=== PATIENT | female | born 1930 | race Caucasian/White ===

== ENCOUNTER 2016-05-07 14:55 | Inpatient (IN) | payer MEDICARE, BC ==
[2016-05-07] MEDS ORDERED: SODIUM CHLORIDE 0.9% 500 ML IV STA (15:43)
--- NOTE | 2016-05-07 15:46 | ED ---
General Adult HPI - General Source: patient, EMS, RN notes reviewed Mode of arrival: EMS Limitations: no limitations <Mohan Martins - Last Filed: 05/07/16 17:12> <Chente Matias - Last Filed: 05/07/16 17:33> - General Chief complaint: Altered Mental Status Stated complaint: weakness Time Seen by Provider: 05/07/16 15:00 - History of Present Illness Initial comments: This is an 85-year-old female who presents with some history of dementia. Daughter states today the patient has been so weak she is unable to stand lateral unable to get out of a chair on her own. According to the daughter she is a little more confused than normal. Daughter states she was weak earlier this morning but able to get around still so she went to work. Patient states in the bathroom this morning she slowly fell to the ground on her bottom but was able to get up with some assistance and seemed to be fine after that. But when the daughter got home from work the patient was unable to get out of a chair which is very unusual. Patient herself has no complaints patient denies headache patient denies numbness weakness. Patient denies any head injury recently. Patient denies chest pain palpitations difficulty breathing or shortness of breath. Patient denies any recent fever chills or cough. Patient denies abdominal pain patient denies nausea vomiting or diarrhea. (Mohan Martins) - Related Data Home Medications Medication Instructions Recorded Confirmed Garlic 1 tab PO AC-BRKFST 01/14/14 05/07/16 Glucosamine-Chondr 500-400Mg 1 tab PO AC-BRKFST 01/14/14 05/07/16 Multivitamin/Iron/Folic Acid 1 tab PO HS 01/14/14 05/07/16 [Centrum Complete Multivit Tab] amLODIPine [Norvasc] 10 mg PO DAILY 01/14/14 05/07/16 Donepezil HCl [Aricept] 10 mg PO BID 07/21/15 05/07/16 Memantine [Namenda] 5 mg PO BID 07/21/15 05/07/16 Pravastatin Sodium [Pravachol] 10 mg PO HS 07/21/15 05/07/16 Acetaminophen Tab [Tylenol Tab] 1,000 mg PO Q6HR PRN 01/03/17 01/03/17 Rivaroxaban [Xarelto] 20 mg PO HS 05/07/16 05/07/16 Allergies Allergy/AdvReac Type Severity Reaction Status Date / Time Sulfa (Sulfonamide Allergy Unknown Verified 05/07/16 16:03 Antibiotics) Review of Systems ROS Other: All systems not noted in ROS Statement are negative. <Mohan Martins - Last Filed: 05/07/16 17:12> ROS Other: All systems not noted in ROS Statement are negative. <Chente Matias - Last Filed: 05/07/16 17:33> ROS Statement: Those systems with pertinent positive or pertinent negative responses have been documented in the HPI. Past Medical History Past Medical History: Atrial Fibrillation, CVA/TIA, Dementia, GERD/Reflux, Hyperlipidemia, Hypertension, Osteoarthritis (OA), Pneumonia, Thyroid Disorder Additional Past Medical History / Comment(s): 07/21/15 Pt presented to [facility] ER with a fall at home after which she had L hip and L knee pain, 2ndary weakness. Pt is admitted with clinical impression of fall, L hip fracture. Pt has dementia and lives with her guicho who is here and assists with past medical hx. Other HX: CVA's and TIA's, tracheobronchitis, RLL NODULE-thought to be scar tissue, pelvic fracture, DJD, osteoporosis, back pain on occasion, skin cancer with removal, incontinence of urine-wears pad, hemorrhoids, thyroid nodules and COPD per past medical record but daughter has no recollection of these. History of Any Multi-Drug Resistant Organisms: None Reported Past Surgical History: Appendectomy, Cholecystectomy, Hysterectomy, Joint Replacement Additional Past Surgical History / Comment(s): Bilateral EYE CATARACT SX, bladder suspension, colonoscopy, skin cancer removals. left hip replacement Past Anesthesia/Blood Transfusion Reactions: No Reported Reaction Past Psychological History: No Psychological Hx Reported Additional Psychological History / Comment(s): Pt has dementia and guicho states there have been more memory problems this past week. Pt left stove on this week. Pt uses walker since hip replacement. Pt does not drive-guicho takes her to appts. Smoking Status: Never smoker Past Alcohol Use History: None Reported Past Drug Use History: None Reported - Past Family History Sister(s) Family Medical History: Cancer Additional Family Medical History / Comment(s): colon CA Father Family Medical History: Unable to Obtain Additional Family Medical History / Comment(s): AT AGE 70 HX UNK Mother Family Medical History: Cancer Additional Family Medical History / Comment(s): AGE 55 BREAST CA <Mohan Martins - Last Filed: 05/07/16 17:12> General Exam Limitations: no limitations <Mohan Martins - Last Filed: 05/07/16 17:12> <Chente Matias - Last Filed: 05/07/16 17:33> - General Exam Comments Initial Comments: GENERAL: Patient is well-developed and well-nourished. Patient is nontoxic and well- hydrated and is in no acute distress. ENT: Neck is soft and supple. No significant lymphadenopathy is noted. Oropharynx is clear. Moist mucous membranes. Neck has full range of motion without eliciting any pain. EYES: The sclera were anicteric and conjunctiva were pink and moist. Extraocular movements were intact and pupils were equal round and reactive to light. Eyelids were unremarkable. PULMONARY: Unlabored respirations. Good breath sounds bilaterally. No audible rales rhonchi or wheezing was noted. CARDIOVASCULAR: There is a regular rate and rhythm without any murmurs gallops or rubs. ABDOMEN: Soft and nontender with normal bowel sounds. No palpable organomegaly was noted. There is no palpable pulsatile mass. SKIN: Skin is clear with no lesions or rashes and otherwise unremarkable. NEUROLOGIC: Patient is alert and oriented 2. Cranial nerves II through XII are grossly intact. Motor and sensory are also intact. Normal speech, volume and content. Symmetrical smile. Cranial nerves cerebellar finger-nose testing is normal as is [id number] testing MUSCULOSKELETAL: Normal extremities with adequate strength and full range of motion. No lower extremity swelling or edema. No calf tenderness. LYMPHATICS: No significant lymphadenopathy is noted PSYCHIATRIC: Normal psychiatric evaluation. Normal interpersonal interactions appears functionally intact in deals appropriately with others. No signs of depression. No signs of anxiety. (Mohan Martins) Medical Decision Making - Lab Data Result diagrams: 05/07/16 15:55 05/07/16 15:55 <Mohan Martins - Last Filed: 05/07/16 17:12> - Lab Data Result diagrams: 05/07/16 15:55 05/07/16 15:55 - Radiology Data Radiology results: report reviewed (Computed tomography scan of brain shows atrophy and a ventricular white matter changes. Old infarcts.), image reviewed (Two-view chest x-ray shows no acute process.) <Chente Matias - Last Filed: 05/07/16 17:33> - Medical Decision Making EKG shows normal sinus rhythm at 81 bpm NJ interval 256 QRS 96 QT interval is 424 QTC is 492 per patient's EKG shows no ST segment elevation or depression or T-wave abdomen is noted. But doesn't particularly care of this patient at 5 PM (Mohan Martins) Dictation above by Dr. Martins was misinterpreted by the dragon dictation. Patient reevaluated by myself, Dr. Matias. Patient resting comfortably in bed. Family states patient has diffuse weakness and difficulty walking. does have evidence of urinary tract infection. Patient will be admitted with IV antibiotics. Case discussed in detail with Dr. Morgan, who will admit for Dr. Moreno. (Chente Matias) - Lab Data Lab Results 05/07/16 05/07/16 05/07/16 Range/Units 15:55 15:55 15:55 WBC 11.3 H (3.8-10.6) k/uL RBC 4.29 (3.80-5.40) m/uL Hgb 13.1 (11.4-16.0) gm/dL Hct 40.1 (34.0-46.0) % MCV 93.5 (80.0-100.0) fL MCH 30.6 (25.0-35.0) pg MCHC 32.8 (31.0-37.0) g/dL RDW 13.8 (11.5-15.5) % Plt Count 225 (150-450) k/uL Neutrophils % 72 % Lymphocytes % 17 % Monocytes % 9 % Eosinophils % 1 % Basophils % 0 % Neutrophils # 8.2 H (1.3-7.7) k/uL Lymphocytes # 1.9 (1.0-4.8) k/uL Monocytes # 1.1 H (0-1.0) k/uL Eosinophils # 0.1 (0-0.7) k/uL Basophils # 0.0 (0-0.2) k/uL PT (9.0-12.0) sec INR (<1.1) APTT (22.0-30.0) sec Sodium 142 (137-145) mmol/L Potassium 3.9 (3.5-5.1) mmol/L Chloride 102 (98-107) mmol/L Carbon Dioxide 25 (22-30) mmol/L Anion Gap 15 mmol/L BUN 29 H (7-17) mg/dL Creatinine 0.93 (0.52-1.04) mg/dL Est GFR (MDRD) Af Amer >60 (>60 ml/min/1.73 sqM) Est GFR (MDRD) Non-Af 57 (>60 ml/min/1.73 sqM) Glucose 95 (74-99) mg/dL Calcium 9.0 (8.4-10.2) mg/dL Magnesium 2.3 (1.6-2.3) mg/dL Total Bilirubin 1.3 (0.2-1.3) mg/dL AST 22 (14-36) U/L ALT 24 (9-52) U/L Alkaline Phosphatase 101 (38-126) U/L Total Creatine Kinase 92 (30-135) U/L CK-MB (CK-2) 1.1 (0.0-2.4) ng/mL CK-MB (CK-2) Rel Index 1.2 Troponin I <0.012 (0.000-0.034) ng/mL Total Protein 7.2 (6.3-8.2) g/dL Albumin 3.7 (3.5-5.0) g/dL Urine Color Urine Appearance (Clear) Urine pH (5.0-8.0) Ur Specific [place] (1.001-1.035) Urine Protein (Negative) Urine Glucose (UA) (Negative) Urine Ketones (Negative) Urine Blood (Negative) Urine Nitrate (Negative) Urine Bilirubin (Negative) Urine Urobilinogen (<2.0) mg/dL Ur Leukocyte Esterase (Negative) Urine WBC (0-5) /hpf Ur Squamous Epith Cells (0-4) /hpf Urine Bacteria (None) /hpf 05/07/16 05/07/16 Range/Units 15:55 17:15 WBC (3.8-10.6) k/uL RBC (3.80-5.40) m/uL Hgb (11.4-16.0) gm/dL Hct (34.0-46.0) % MCV (80.0-100.0) fL MCH (25.0-35.0) pg MCHC (31.0-37.0) g/dL RDW (11.5-15.5) % Plt Count (150-450) k/uL Neutrophils % % Lymphocytes % % Monocytes % % Eosinophils % % Basophils % % Neutrophils # (1.3-7.7) k/uL Lymphocytes # (1.0-4.8) k/uL Monocytes # (0-1.0) k/uL Eosinophils # (0-0.7) k/uL Basophils # (0-0.2) k/uL PT 12.0 (9.0-12.0) sec INR 1.2 (<1.1) APTT 26.9 (22.0-30.0) sec Sodium (137-145) mmol/L Potassium (3.5-5.1) mmol/L Chloride (98-107) mmol/L Carbon Dioxide (22-30) mmol/L Anion Gap mmol/L BUN (7-17) mg/dL Creatinine (0.52-1.04) mg/dL Est GFR (MDRD) Af Amer (>60 ml/min/1.73 sqM) Est GFR (MDRD) Non-Af (>60 ml/min/1.73 sqM) Glucose (74-99) mg/dL Calcium (8.4-10.2) mg/dL Magnesium (1.6-2.3) mg/dL Total Bilirubin (0.2-1.3) mg/dL AST (14-36) U/L ALT (9-52) U/L Alkaline Phosphatase (38-126) U/L Total Creatine Kinase (30-135) U/L CK-MB (CK-2) (0.0-2.4) ng/mL CK-MB (CK-2) Rel Index Troponin I (0.000-0.034) ng/mL Total Protein (6.3-8.2) g/dL Albumin (3.5-5.0) g/dL Urine Color Yellow Urine Appearance Turbid H (Clear) Urine pH 6.0 (5.0-8.0) Ur Specific [place] 1.018 (1.001-1.035) Urine Protein 1+ H (Negative) Urine Glucose (UA) Negative (Negative) Urine Ketones Trace H (Negative) Urine Blood Small H (Negative) Urine Nitrate Positive H (Negative) Urine Bilirubin Negative (Negative) Urine Urobilinogen <2.0 (<2.0) mg/dL Ur Leukocyte Esterase Moderate H (Negative) Urine WBC 112 H (0-5) /hpf Ur Squamous Epith Cells 2 (0-4) /hpf Urine Bacteria Many H (None) /hpf Disposition <Mohan Martins - Last Filed: 05/07/16 17:12> <Chente Matias - Last Filed: 05/07/16 17:33> Clinical Impression: Urinary tract infection, Weakness Disposition: ADMITTED IP TO THIS HOSP
[2016-05-07 16:10] LABS: Basophils % (A) 0 %; CH 31.7; CHCM 34.1; Eosinophils # (A) 0.1 k/uL (0-0.7); Eosinophils % (A) 1 %; HCT 40.1 % (34.0-46.0); HDW 2.34; HGB 13.1 gm/dL (11.4-16.0); Luc # (Auto) 0.16; Luc % (Auto) 1; Lymphocytes # (A) 1.9 k/uL (1.0-4.8); Lymphocytes % (A) 17 %; MCH 30.6 pg (25.0-35.0); MCHC 32.8 g/dL (31.0-37.0); MCV 93.5 fL (80.0-100.0); Mean Platelet Volume 7.2; Monocytes # (A) 1.1 k/uL (0-1.0); Monocytes % (A) 9 %; Neutrophils # (A) 8.2 k/uL (1.3-7.7); Neutrophils % (A) 72 %; RBC 4.29 m/uL (3.80-5.40); RDW 13.8 % (11.5-15.5); WBC 11.3 k/uL (3.8-10.6); WBC (Perox) 11.15
[2016-05-07 16:20] LABS: ALT 24 U/L (9-52); AST 22 U/L (14-36); Alkaline Phosphatase 101 U/L (38-126); Anion Gap 15 mmol/L; Blood Urea Nitrogen 29 mg/dL (7-17); Carbon Dioxide 25 mmol/L (22-30); Chloride 102 mmol/L (98-107); Glucose 95 mg/dL (74-99); Magnesium 2.3 mg/dL (1.6-2.3); Non-African American GFR(MDRD) 57 (>60 ml/min/1.73 sqM); Potassium 3.9 mmol/L (3.5-5.1); Sodium 142 mmol/L (137-145); Total Bilirubin 1.3 mg/dL (0.2-1.3); Total Protein 7.2 g/dL (6.3-8.2)
[2016-05-07 16:21] LABS: INR 1.2 (<1.1); Partial Thromboplastin Time 26.9 sec (22.0-30.0)
[2016-05-07 16:23] LABS: Creatine Kinase 92 U/L (30-135)
[2016-05-07 16:35] LABS: Creatine Kinase MB 1.1 ng/mL (0.0-2.4); Troponin I <0.012 ng/mL (0.000-0.034)
--- NOTE | 2016-05-07 17:01 | CT ---
EXAMINATION TYPE: CT brain wo con DATE OF EXAM: 05/07/2016 4:56 PM COMPARISON: NONE INDICATION: Pt states of weakness. DLP: 968.3 mGycm, Automated exposure control for dose reduction was used. CONTRAST: None CT of the brain is performed utilizing 3 mm thick sections through the posterior fossa and 3 mm thick sections through the remaining calvarium. Study is performed within 24 hours of arrival to the hosp [facility]. No abnormal hyperdensity is present to suggest an acute intracranial hemorrhage. No mass lesion is evident. No acute infarcts are evident. There is an old left parietal infarct. Subcortical infarct is also lik kim present. There is confluent periventricular white matter hypodensity most likely on the basis of chronic white matter changes. Old watershed infarct through the left frontal parietal region is evide nt. Ventricles and sulci are prominent for the patient age. Paranasal sinuses and mastoid air cells within the [id number] are clear. IMPRESSIONS: 1. Atrophy with periventricular white matter changes. 2. Old infarcts.
--- NOTE | 2016-05-07 17:03 | XR ---
EXAMINATION TYPE: XR chest 2V DATE OF EXAM: 05/07/2016 4:59 PM COMPARISON: 07/26/2015 INDICATION: Weakness TECHNIQUE: Frontal and lateral views of the chest are obtained. FINDINGS: The heart size is normal. The pulmonary vasculature is normal. The lungs are clear. IMPRESSION: 1. No acute pulmonary process.
[2016-05-07 17:24] LABS: Appearance,Urine Turbid (Clear); Bacteria,Urine Many /hpf; Bilirubin,Urine Negative (Negative); Glucose,Urine (UA) Negative (Negative); Ketones,Urine Trace (Negative); Leukocyte Esterase,Urine Moderate (Negative); Nitrite,Urine Positive (Negative); Particle Count 259220; Protein,Urine 1+ (Negative); Specific Gravity,Urine 1.018 (1.001-1.035); Squamous Epithelial Cell,Urine 2 /hpf (0-4); UA Billing (MACRO vs. MICRO) MICRO; Urobilinogen,Urine <2.0 mg/dL (<2.0); WBC,Urine 112 /hpf (0-5)
[2016-05-07] MEDS ORDERED: NALOXONE 0.4 MG/ML 1 ML VIAL IV PRN (17:33)
[2016-05-07] MEDS ORDERED: LEVOFLOXACIN 750MG-D5W PMX 750 MG in DEXTROSE/WATER 1 150ML.BAG IVPB STA (17:34)
[2016-05-07] MEDS ORDERED: ACETAMINOPHEN TAB 500 MG TAB PO PRN (23:32)
[2016-05-08] MEDS: SODIUM CHLORIDE 0.9% 1,000 ML IV SCH ×3 (04:54→17:43)
[2016-05-08] MEDS ORDERED: GLUCOSAMINE CHONDR MSM PO SCH (07:30)
[2016-05-08] MEDS ORDERED: NON-FORMULARY DRUG (Garlic [Garlic] 1 TAB) PO SCH (07:30)
[2016-05-08 08:03] LABS: Basophils % (A) 0 %; CH 30.6; CHCM 31.6; Eosinophils # (A) 0.1 k/uL (0-0.7); Eosinophils % (A) 1 %; HCT 38.9 % (34.0-46.0); HDW 2.26; HGB 12.4 gm/dL (11.4-16.0); Luc # (Auto) 0.11; Luc % (Auto) 2; Lymphocytes # (A) 1.4 k/uL (1.0-4.8); Lymphocytes % (A) 21 %; MCH 31.1 pg (25.0-35.0); MCV 97.2 fL (80.0-100.0); Mean Platelet Volume 6.5; Monocytes # (A) 0.5 k/uL (0-1.0); Monocytes % (A) 7 %; Neutrophils # (A) 4.8 k/uL (1.3-7.7); Neutrophils % (A) 69 %; RDW 13.7 % (11.5-15.5); WBC 6.9 k/uL (3.8-10.6); WBC (Perox) 7.21
[2016-05-08 08:45] LABS: Anion Gap 13 mmol/L; Blood Urea Nitrogen 19 mg/dL (7-17); Calcium 8.2 mg/dL (8.4-10.2); Carbon Dioxide 21 mmol/L (22-30); Chloride 108 mmol/L (98-107); Glucose 94 mg/dL (74-99); Non-African American GFR(MDRD) >60 (>60 ml/min/1.73 sqM); Sodium 142 mmol/L (137-145)
--- NOTE | 2016-05-08 08:59 | HP ---
DATE OF ADMISSION: CHIEF COMPLAINT: Change in mental status and weakness. HISTORY OF PRESENT ILLNESS: This 85-year-old woman with a past medical history of multiple medical problems, including history of atrial fibrillation, history of cerebrovascular accident, TIA, history of dementia, history of GERD, hypertension, history of DJD, hypothyroidism being followed by Dr. Gan in the outpatient setting, was admitted to [facility] with complaints of weakness and change in mental status. The patient had dementia. The daughter reported that patient was weak and unable to stand and patient apparently fell on the ground also. The patient is more confused than normal. The patient was taken to [facility] and admitted for further evaluation and treatment. Urinary tract infection with sepsis suspected and the patient started in IV antibiotics. The patient is currently confused and unable to get a coherent history. Most of the history taken from my discussion with staff as well as review of the chart at this time. PAST MEDICAL HISTORY: History of dementia, history of atrial fibrillation, CVA, TIA, GERD, hypertension, hyperlipidemia, DJD, history of hypothyroidism, history of cholecystectomy, history of joint surgery. MEDICATIONS PRIOR TO ADMISSION: 1. Xarelto 10 mg q.h.s. 2. Tylenol 1000 mg q.6 p.r.n. 3. Aricept 10 mg b.i.d. 4. Multivitamins 1 p.o. daily. 5. Namenda 5 mg p.o. b.i.d. 6. Glucosamine chondroitin 1 tablet q.a.c. breakfast. 7. Garlic 1 a.c. breakfast. 8. Norvasc 10 mg daily. 9. Pravachol 10 mg q.h.s. ALLERGIES: SULFA. FAMILY HISTORY: Unable to obtain. SOCIAL HISTORY: No history of smoking or drinking. Review of systems could not be taken because of change in mental status. PHYSICAL EXAMINATION: Patient is conscious, confused. Pulse 76, blood pressure 150/60, respirations 18, temperature 98.7, pulse ox 93% on room air. HEENT: Conjunctivae normal. Oral mucosa moist. NECK: No jugular venous distention. No carotid bruit. No lymph node enlargement. CARDIOVASCULAR: S1 and S2, muffled. RESPIRATORY: Breath sounds diminished at the bases. A few scattered rhonchi. No crackles. ABDOMEN: Soft, nontender. No mass palpable. LEGS: No edema, no swelling. NERVOUS SYSTEM: Higher function as mentioned. Moves all four limbs. Mild diffuse weakness. LYMPHATIC: No lymphadenopathy in the neck, axillae or groin. SKIN: No ulcer, rash or bleeding. LABS: WBC 11.1, hemoglobin 13.1. BUN is 29. UA noted. ASSESSMENT: 1. Acute urinary tract infection with possible sepsis. 2. Change in mental status with metabolic encephalopathy, acute on chronic, possibly secondary to sepsis. 3. Increased WBC. 4. Atrial fibrillation. 5. Cerebrovascular accident, transient ischemic attack. 6. History of dementia. 7. Gastroesophageal reflux disease. 8. Hypertension. 9. Hyperlipidemia. 10. History of degenerative joint disease. 11. History of pneumonia. 12. History of hypothyroidism. 13. History of falls. 14. Gait dysfunction. 15. History of right lower lobe lung nodules. 16. History of degenerative joint disease. 17. History of skin cancer. 18. Appendectomy. 19. History of cholecystectomy. 20. History of degenerative joint disease. 21. History of cataracts. RECOMMENDATIONS AND DISCUSSION: In this 85-year-old woman who presented with multiple complex medical issues, we will monitor the patient closely. Continue the current medications and symptomatic treatment. Otherwise at this time I recommend continue with IV antibiotics, resume the home medications, DVT prophylaxis. Otherwise, PT, OT evaluation. Consider possibility of ECF rehab. Guarded prognosis because of multiple complex medical issues. Medications reconciliation was done. Further recommendations to follow. Copy of dictation forwarded to Dr. Gan who is the primary physician.
[2016-05-08] MEDS: amLODIPine 10 MG TAB PO SCH (09:32)
[2016-05-08] MEDS: MEMANTINE 5 MG TAB PO SCH ×2 (09:33→22:06)
[2016-05-08] MEDS: DONEPEZIL 10 MG TAB PO SCH ×2 (09:33→22:06)
[2016-05-08] MEDS: THIAMINE 100 MG TAB PO SCH (12:49)
[2016-05-08] MEDS: FOLIC ACID 1 MG TAB PO SCH (12:49)
[2016-05-08 15:43] VITALS: RESP 16
[2016-05-08] MEDS ORDERED: LEVOFLOXACIN 750MG-D5W PMX 750 MG in DEXTROSE/WATER 1 150ML.BAG IVPB SCH (18:00)
[2016-05-08] MEDS ORDERED: PRAVASTATIN SODIUM 20 MG TAB PO SCH (21:00)
[2016-05-08] MEDS ORDERED: MULTIVITAMINS, THERA 1 EACH TAB PO SCH (21:00)
[2016-05-08] MEDS ORDERED: RIVAROXABAN 10 MG TAB PO SCH (21:00)
[2016-05-09 07:50] LABS: Basophils % (A) 0 %; CH 31.4; Eosinophils # (A) 0.1 k/uL (0-0.7); Eosinophils % (A) 2 %; HDW 2.37; HGB 11.9 gm/dL (11.4-16.0); Luc # (Auto) 0.13; Luc % (Auto) 2; Lymphocytes # (A) 1.4 k/uL (1.0-4.8); Lymphocytes % (A) 21 %; MCH 30.6 pg (25.0-35.0); MCHC 32.1 g/dL (31.0-37.0); MCV 95.4 fL (80.0-100.0); Mean Platelet Volume 7.3; Monocytes # (A) 0.5 k/uL (0-1.0); Monocytes % (A) 7 %; Neutrophils # (A) 4.5 k/uL (1.3-7.7); Neutrophils % (A) 68 %; RBC 3.87 m/uL (3.80-5.40); RDW 13.6 % (11.5-15.5); WBC 6.7 k/uL (3.8-10.6); WBC (Perox) 7.17
[2016-05-09 08:19] VITALS: BP 133/60; PULSE 75; TEMP 97.8
[2016-05-09 08:24] LABS: Anion Gap 11 mmol/L; Blood Urea Nitrogen 14 mg/dL (7-17); Calcium 8.4 mg/dL (8.4-10.2); Carbon Dioxide 25 mmol/L (22-30); Chloride 108 mmol/L (98-107); Glucose 95 mg/dL (74-99); Non-African American GFR(MDRD) >60 (>60 ml/min/1.73 sqM); Sodium 144 mmol/L (137-145)
[2016-05-09] MEDS: MEMANTINE 5 MG TAB PO SCH (09:08)
[2016-05-09] MEDS: DONEPEZIL 10 MG TAB PO SCH (09:08)
[2016-05-09] MEDS: amLODIPine 10 MG TAB PO SCH (09:08)
[2016-05-09] MEDS: SODIUM CHLORIDE 0.9% 1,000 ML IV SCH (09:26)
--- NOTE | 2016-05-09 11:31 | PN ---
DATE OF SERVICE: 05/08/2016 This 85 -year-old woman admitted with metabolic encephalopathy, positive urinary tract infection with sepsis and the patient on broad spectrum IV antibiotics. No chest pain. No palpitations. No fever. Sensorium improved. On exam, alert and oriented times three. Pulse 74, blood pressure 125/59, respirations 16, temperature 98.7, pulse ox 91% on room air. HEENT: Conjunctivae normal. NECK: No jugular venous distention. CARDIOVASCULAR: S1, S2 muffled. RESPIRATORY: Breath sounds diminished at the bases. No rhonchi. No crackles. ABDOMEN: Soft, nontender. LEGS: No edema. No swelling. CENTRAL NERVOUS SYSTEM: Mild diffuse weakness. LABS: WBC 6.9, BUN 29. UA noted. Cultures are negative. ASSESSMENT: 1. Acute urinary tract infection with possible sepsis. Present on admission. 2. Change in mental status, metabolic encephalopathy, acute on chronic secondary to sepsis. 3. Increased WBC. 4. Atrial fibrillation. 5. Cerebrovascular accident, transient ischemic attack. 6. History of dementia. 7. Gastroesophageal reflux disease. 8. Hypertension. 9. Hyperlipidemia. 10. History of degenerative joint disease. 11. History of pneumonia. 12. History of hypothyroidism. 13. History of falls. 14. History of gait dysfunction. 15. History of right lower lobe lung nodule. 16. History of degenerative joint disease. 17. Skin cancer. 18. Appendectomy. 19. History of cholecystectomy. 20. History of degenerative joint disease. 21. History of cataracts. 22. FULL CODE. RECOMMENDATIONS AND DISCUSSION: In this 85-year-old woman who presented with multiple complex medical issues, we will monitor the patient closely. Continue the current medications. Continue symptomatic treatment. Otherwise, at this time, I will recommend to continue with the current medications, continue symptomatic treatment. Continue with antibiotics. Increased ambulation. Closely monitor. Further recommendations to follow. MTDD
[2016-05-09] MEDS: FOLIC ACID 1 MG TAB PO SCH (13:55)
[2016-05-09] MEDS: THIAMINE 100 MG TAB PO SCH (13:55)
[2016-05-09] MEDS ORDERED: LEVOFLOXACIN 750 MG TAB PO SCH (17:00)
--- NOTE | 2016-05-10 13:27 | DS ---
DATE OF ADMISSION: 05/07/2016 DATE OF DISCHARGE: 05/09/2016 FINAL DIAGNOSES: 1. Acute urinary tract infection with possible sepsis, present on admission, improved. 2. Change in mental status, metabolic encephalopathy, acute on chronic metabolic encephalopathy possibly secondary to sepsis. 3. Increased WBC. 4. Atrial fibrillation history, paroxysmal. 5. Cerebrovascular accident, transient ischemic attack. 6. History of dementia. 7. Gastroesophageal reflux disease. 8. Hypertension. 9. Hyperlipidemia. 10. History of degenerative joint disease. 11. History of pneumonia. 12. History of hypothyroidism. 13. History of falls. 14. History of gait dysfunction. 15. History of right lower lobe lung nodule. 16. History of skin cancer. 17. History of appendectomy. 18. History of cholecystectomy. 19. History of cataracts. 20. FULL CODE. DISCHARGE DISPOSITION: The patient will be discharged in a stable condition with guarded prognosis. HISTORY OF PRESENT ILLNESS: This 85-year-old woman with a past medical history of multiple medical problems being followed by Dr. Gan in the outpatient setting admitted with change in mental status. UTI was suspected, sepsis suspected. Patient was treated with antibiotics. Patient improved significantly. Cultures are negative. Medications monitored. On exam, vitals are stable. CARDIOVASCULAR SYSTEM: S1, S2 muffled. ABDOMEN: Soft. NERVOUS SYSTEM: Unchanged and sensorium has come down to the baseline per daughter. DISCHARGE ADVICE: 1. Diet is cardiac. 2. Activity limited until followup. 3. Follow up with Dr. Gan in 2 to 3 days. 4. Follow up labs with Dr. Gan, CBC and BMP. Medications are: 1. Tylenol 1000 mg q.6 p.r.n. 2. Ceftin 500 mg p.o. b.i.d. for 5 days. 3. Aricept 10 mg b.i.d. 4. Folic acid 1 mg daily. 5. Garlic 1 daily. 6. Glucosamine chondroitin 500. 7. Namenda 5 mg p.o. b.i.d. 8. Multivitamin 1 p.o. q.h.s. 9. Pravachol 10 mg q.h.s. 10. Xarelto 20 mg q.h.s. 11. Vitamin B1, thiamine, 100 mg p.o. daily. 12. Norvasc 10 mg p.o. daily. Once again, the patient will be discharged in stable condition with guarded prognosis. CORTNEYD
== END 2016-05-09 16:13 | disposition home or self-care (01) | DRG 871 ==
LOC: EC 14:55 → 5MS5E 17:33
PROVIDERS: ADMIT Internal Medicine; ATTEND Internal Medicine
DX: A41.9 Sepsis, unspecified organism (principal); G93.41 Metabolic encephalopathy; N39.0 Urinary tract infection, site not specified; F03.90 Unspecified dementia, unspecified severity, without behavioral disturbance, psychotic disturbance, mood disturbance, and anxiety; I48.91 Unspecified atrial fibrillation; E03.9 Hypothyroidism, unspecified; E78.5 Hyperlipidemia, unspecified; I10 Essential (primary) hypertension; K21.9 Gastro-esophageal reflux disease without esophagitis; M19.90 Unspecified osteoarthritis, unspecified site; W19.XXXA Unspecified fall, initial encounter; Z85.828 Personal history of other malignant neoplasm of skin; Z86.73 Personal history of transient ischemic attack (TIA), and cerebral infarction without residual deficits; Z87.01 Personal history of pneumonia (recurrent); Z91.81 History of falling; Z96.642 Presence of left artificial hip joint; Z88.2 Allergy status to sulfonamides; Z79.01 Long term (current) use of anticoagulants; Z79.899 Other long term (current) drug therapy
CPT/HCPCS: 36415; 70450; 71020; 80048; 80053; 81001; 82550; 82553; 83735; 84484; 85025; 85610; 85730; 87040; 93005; 96365; 99285

== ENCOUNTER → 2016-05-13 | Outpatient (CLI) | payer MEDICARE, BC ==
[2016-05-13 17:19] LABS: Basophils % (A) 1 %; CH 31.3; CHCM 33.3; Eosinophils # (A) 0.2 k/uL (0-0.7); Eosinophils % (A) 2 %; HDW 2.42; HGB 12.8 gm/dL (11.4-16.0); Luc # (Auto) 0.18; Luc % (Auto) 3; Lymphocytes % (A) 29 %; MCH 30.9 pg (25.0-35.0); MCHC 32.7 g/dL (31.0-37.0); MCV 94.4 fL (80.0-100.0); Mean Platelet Volume 7.5; Monocytes # (A) 0.6 k/uL (0-1.0); Monocytes % (A) 8 %; Neutrophils % (A) 58 %; RBC 4.13 m/uL (3.80-5.40); RDW 13.6 % (11.5-15.5); WBC (Perox) 7.22
[2016-05-13 17:20] LABS: Anion Gap 13 mmol/L; Blood Urea Nitrogen 25 mg/dL (7-17); Calcium 9.3 mg/dL (8.4-10.2); Carbon Dioxide 25 mmol/L (22-30); Chloride 102 mmol/L (98-107); Glucose 89 mg/dL (74-99); Non-African American GFR(MDRD) >60 (>60 ml/min/1.73 sqM); Potassium 3.8 mmol/L (3.5-5.1); Sodium 140 mmol/L (137-145)
== END | disposition home or self-care (01) ==
LOC: LABWHC1 16:20
PROVIDERS: ATTEND Nurse Practitioner
DX: N39.0 Urinary tract infection, site not specified (principal)
CPT/HCPCS: 36415; 80048; 85025

== ENCOUNTER 2016-07-10 18:59 | Observation (INO) | payer MEDICARE, BC ==
--- NOTE | 2016-07-10 19:59 | ED ---
Overdose HPI - General Chief Complaint: Overdose Stated Complaint: Ingestion of posion Time Seen by Provider: 07/10/16 19:00 Source: EMS, RN notes reviewed Mode of arrival: EMS Limitations: no limitations - History of Present Illness Initial Comments: This is a 87-year-old female with a complaint of ingestion of kerosene just prior to admission. She is being given her pills with a glass of water but her daughter apparently placed a cup of kerosene down and the patient taken it by mistake. She had a mouthful perhaps an inch of the entire 6 ounce cup she denies any fevers chills nausea vomiting sweats just burning sensation going down her chest and into her stomach. She was advised by poison control to come for evaluation. She was brought in by EMS. MD Complaint: accidental overdose - Related Data Home Medications Medication Instructions Recorded Confirmed Garlic 1 tab PO AC-BRKFST 01/14/14 07/10/16 Glucosamine-Chondr 500-400Mg 1 tab PO AC-BRKFST 01/14/14 07/10/16 Multivitamin/Iron/Folic Acid 1 tab PO HS 01/14/14 07/10/16 [Centrum Complete Multivit Tab] amLODIPine [Norvasc] 10 mg PO DAILY 01/14/14 07/10/16 Donepezil HCl [Aricept] 10 mg PO BID 07/21/15 07/10/16 Memantine [Namenda] 5 mg PO BID 07/21/15 07/10/16 Pravastatin Sodium [Pravachol] 10 mg PO HS 07/21/15 07/10/16 Acetaminophen Tab [Tylenol] 1,000 mg PO Q6HR PRN 05/07/16 07/10/16 Rivaroxaban [Xarelto] 20 mg PO HS 05/07/16 07/10/16 Previous Rx's Medication Instructions Recorded Thiamine [Vitamin B-1] 100 mg PO DAILY@1200 #30 tab 05/09/16 Allergies Allergy/AdvReac Type Severity Reaction Status Date / Time Sulfa (Sulfonamide Allergy Unknown Verified 07/10/16 19:45 Antibiotics) Review of Systems ROS Statement: Those systems with pertinent positive or pertinent negative responses have been documented in the HPI. ROS Other: All systems not noted in ROS Statement are negative. Past Medical History Past Medical History: Atrial Fibrillation, CVA/TIA, Dementia, GERD/Reflux, Hyperlipidemia, Hypertension, Osteoarthritis (OA), Pneumonia, Thyroid Disorder Additional Past Medical History / Comment(s): 07/21/15 Pt presented to [facility] ER with a fall at home after which she had L hip and L knee pain, 2ndary weakness. Pt is admitted with clinical impression of fall, L hip fracture. Pt has dementia and lives with her guicho who is here and assists with past medical hx. Other HX: CVA's and TIA's, tracheobronchitis, RLL NODULE-thought to be scar tissue, pelvic fracture, DJD, osteoporosis, back pain on occasion, skin cancer with removal, incontinence of urine-wears pad, hemorrhoids, thyroid nodules and COPD per past medical record but daughter has no recollection of these. History of Any Multi-Drug Resistant Organisms: None Reported Past Surgical History: Appendectomy, Cholecystectomy, Hysterectomy, Joint Replacement Additional Past Surgical History / Comment(s): Bilateral EYE CATARACT SX, bladder suspension, colonoscopy, skin cancer removals. left hip replacement Past Anesthesia/Blood Transfusion Reactions: No Reported Reaction Past Psychological History: No Psychological Hx Reported Additional Psychological History / Comment(s): Pt has dementia and guicho states there have been more memory problems this past week. Pt left stove on this week. Pt uses walker since hip replacement. Pt does not drive-guicho takes her to appts. Smoking Status: Never smoker Past Alcohol Use History: None Reported Past Drug Use History: None Reported - Past Family History Sister(s) Family Medical History: Cancer Additional Family Medical History / Comment(s): colon CA Father Family Medical History: Unable to Obtain Additional Family Medical History / Comment(s): AT AGE 70 HX UNK Mother Family Medical History: Cancer Additional Family Medical History / Comment(s): AGE 55 BREAST CA General Exam - General Exam Comments Initial Comments: This is a well-developed well-nourished awake alert oriented 3 female she does have the smell of kerosene on her breath Limitations: no limitations General appearance: alert, in no apparent distress Head exam: Present: atraumatic, normocephalic, normal inspection Eye exam: Present: normal appearance, PERRL, EOMI. Absent: scleral icterus, conjunctival injection, periorbital swelling ENT exam: Present: normal exam, mucous membranes moist Neck exam: Present: normal inspection. Absent: tenderness, meningismus, lymphadenopathy Respiratory exam: Present: normal lung sounds bilaterally. Absent: respiratory distress, wheezes, rales, rhonchi, stridor Cardiovascular Exam: Present: regular rate, normal rhythm, normal heart sounds. Absent: systolic murmur, diastolic murmur, rubs, gallop, clicks GI/Abdominal exam: Present: soft, normal bowel sounds. Absent: distended, tenderness, guarding, rebound, rigid Extremities exam: Present: normal inspection, full ROM, normal capillary refill. Absent: tenderness, pedal edema, joint swelling, calf tenderness Back exam: Present: normal inspection Neurological exam: Present: alert, oriented X3, CN II-XII intact Psychiatric exam: Present: normal affect, normal mood Skin exam: Present: warm, dry, intact, normal color. Absent: rash Course Vital Signs 07/10/16 07/10/16 19:03 22:00 Temperature 96.8 F L Pulse Rate 97 83 Respiratory 22 18 Rate Blood Pressure 140/70 137/95 O2 Sat by Pulse 92 L 96 Oximetry - Reevaluation(s) Reevaluation #1: 07/10/16 23:22 A she started developing a slight cough no fevers chills or sweats no chest pain Medical Decision Making - Medical Decision Making I did discuss findings with patient family. Patient did have a slight cough she otherwise has no symptoms his recommendation of poison control that she be admitted for observation. There is evidence of atelectasis on the left base of the lung on x-ray. The family is unsure whether this is been here before she has been told that she has some scarring but the family cannot remember which side. - Lab Data Result diagrams: 07/10/16 20:15 07/10/16 20:15 Lab Results 07/10/16 07/10/16 Range/Units 20:15 20:15 WBC 7.3 (3.8-10.6) k/uL RBC 4.63 (3.80-5.40) m/uL Hgb 14.4 (11.4-16.0) gm/dL Hct 43.5 (34.0-46.0) % MCV 94.0 (80.0-100.0) fL MCH 31.1 (25.0-35.0) pg MCHC 33.1 (31.0-37.0) g/dL RDW 14.2 (11.5-15.5) % Plt Count 251 (150-450) k/uL Neutrophils % 64 % Lymphocytes % 22 % Monocytes % 7 % Eosinophils % 2 % Basophils % 1 % Neutrophils # 4.7 (1.3-7.7) k/uL Lymphocytes # 1.7 (1.0-4.8) k/uL Monocytes # 0.5 (0-1.0) k/uL Eosinophils # 0.2 (0-0.7) k/uL Basophils # 0.1 (0-0.2) k/uL Sodium 141 (137-145) mmol/L Potassium 3.9 (3.5-5.1) mmol/L Chloride 103 (98-107) mmol/L Carbon Dioxide 25 (22-30) mmol/L Anion Gap 13 mmol/L BUN 31 H (7-17) mg/dL Creatinine 0.89 (0.52-1.04) mg/dL Est GFR (MDRD) Af Amer >60 (>60 ml/min/1.73 sqM) Est GFR (MDRD) Non-Af 60 (>60 ml/min/1.73 sqM) Glucose 130 H (74-99) mg/dL Calcium 10.2 (8.4-10.2) mg/dL Magnesium 2.3 (1.6-2.3) mg/dL Total Bilirubin 0.8 (0.2-1.3) mg/dL AST 27 (14-36) U/L ALT 26 (9-52) U/L Alkaline Phosphatase 89 (38-126) U/L Total Protein 8.4 H (6.3-8.2) g/dL Albumin 4.5 (3.5-5.0) g/dL - EKG Data -: EKG Interpreted by Id EKG shows normal: sinus rhythm, axis, intervals, QRS complexes, ST-T waves (EKG shows normal sinus rhythm and 97 appear of 01 50 to QRS duration 86 daily since QTC of 358/454 this is normal. EKG.) Rate: normal - Radiology Data Radiology results: report reviewed (X-ray did show some evidence of possible some atelectasis in the left base.), image reviewed Disposition Clinical Impression: Accidental hydrocarbon ingestion, Atelectasis, left Disposition: ADMITTED IP TO THIS [facility] Condition: Stable
[2016-07-10 20:25] LABS: Basophils # (A) 0.1 k/uL (0-0.2); Basophils % (A) 1 %; CH 31.5; CHCM 33.6; Eosinophils # (A) 0.2 k/uL (0-0.7); Eosinophils % (A) 2 %; HCT 43.5 % (34.0-46.0); HDW 2.31; HGB 14.4 gm/dL (11.4-16.0); Luc # (Auto) 0.21; Luc % (Auto) 3; Lymphocytes # (A) 1.7 k/uL (1.0-4.8); Lymphocytes % (A) 22 %; MCH 31.1 pg (25.0-35.0); MCHC 33.1 g/dL (31.0-37.0); Mean Platelet Volume 6.9; Monocytes # (A) 0.5 k/uL (0-1.0); Monocytes % (A) 7 %; Neutrophils # (A) 4.7 k/uL (1.3-7.7); Neutrophils % (A) 64 %; RBC 4.63 m/uL (3.80-5.40); RDW 14.2 % (11.5-15.5); WBC 7.3 k/uL (3.8-10.6); WBC (Perox) 7.68
--- NOTE | 2016-07-10 20:27 | XR ---
EXAMINATION TYPE: XR chest 2V DATE OF EXAM: 07/10/2016 8:22 PM COMPARISON: 05/07/2016 HISTORY: Kerosene ingestion TECHNIQUE: Frontal and lateral views of the chest are obtained. FINDINGS: There is no heart failure nor confluent pneumonic infiltrate. There are no hilar masses. T here is no pleural effusion. There is mild anterior wedging of L1 and L2 vertebra. There is mild line ar density at the left lung base. IMPRESSION there is focal atelectasis at the left lung base that is new compared to old exam. Stable lumbar com pression fractures.
[2016-07-10 20:33] LABS: ALT 26 U/L (9-52); AST 27 U/L (14-36); Alkaline Phosphatase 89 U/L (38-126); Anion Gap 13 mmol/L; Blood Urea Nitrogen 31 mg/dL (7-17); Calcium 10.2 mg/dL (8.4-10.2); Carbon Dioxide 25 mmol/L (22-30); Chloride 103 mmol/L (98-107); Glucose 130 mg/dL (74-99); Magnesium 2.3 mg/dL (1.6-2.3); Non-African American GFR(MDRD) 60 (>60 ml/min/1.73 sqM); Potassium 3.9 mmol/L (3.5-5.1); Sodium 141 mmol/L (137-145); Total Bilirubin 0.8 mg/dL (0.2-1.3); Total Protein 8.4 g/dL (6.3-8.2)
[2016-07-10] MEDS ORDERED: NALOXONE 0.4 MG/ML 1 ML VIAL IV PRN (23:24)
[2016-07-10] MEDS ORDERED: ACETAMINOPHEN TAB 500 MG TAB PO PRN (23:29)
[2016-07-10] MEDS ORDERED: SODIUM CHLORIDE 0.9% 1,000 ML IV SCH (23:30)
[2016-07-11] MEDS ORDERED: GLUCOSAMINE CHONDR MSM PO SCH (07:30)
[2016-07-11 07:40] VITALS: BP 113/61; PULSE 78; RESP 16; TEMP 97.6
--- NOTE | 2016-07-11 07:44 | XR ---
EXAM: XR Chest, 1 View. CLINICAL HISTORY: Reason: Pain TECHNIQUE: Frontal view of the chest. COMPARISON: 07/10/16. FINDINGS: Lungs: Right greater than left basilar opacities may represent atelectasis or infiltrate. Curvilinear opacity noted at the right lung base, unclear etiology. Pleural space: Unremarkable. No pneumothorax. Heart: Stable. Mediastinum: Stable. Bones/joints: Stable. IMPRESSION: Right greater than left basilar opacities may represent atelectasis or infiltrate. Curvilinear opacity noted at the right lung base, unclear etiology. Otherwise, no significant change.
[2016-07-11] MEDS ORDERED: amLODIPine 10 MG TAB PO SCH (09:00)
[2016-07-11] MEDS ORDERED: DONEPEZIL 10 MG TAB PO SCH (09:00)
[2016-07-11] MEDS ORDERED: MEMANTINE 5 MG TAB PO SCH (09:00)
[2016-07-11 10:56] VITALS: BMI 28.3
--- NOTE | 2016-07-11 11:49 | P.CNPUL ---
History of Present Illness Consult date: 07/11/16 Requesting physician: Giacomo Cornejo Reason for consult: other (Accidental kerosene ingestion) Chief complaint: Sore throat History of present illness: This is a very pleasant 85-year-old female patient who follows with Dr. Gan as her primary care physician. She has a history of dementia, atrial fibrillation anticoagulated with Xarelto, CVA, GERD, hypertension, hyperlipidemia, hypothyroidism, degenerative joint disease. Yesterday while at home with her daughter the patient reached for a glass of what she felt was water which turned out to be glass of kerosene and had several drinks of it. She did have a sensation of burning down her chest and into her stomach. She presented here to the emergency room for the same. She denied any shortness of breath, cough or congestion. Her chest x-ray showed most likely chronic changes in the lung bases no acute pulmonary process. No aspiration. No hemoptysis. She is seen today in consultation on the regular medical floor. She is sitting up in a chair at the bedside. She is awake and alert in no acute distress. She denies any shortness of breath, cough or congestion still no hemoptysis. Her daughter noted the smell of kerosene in her stool this morning and some oily texture. The patient denies any worsening sore throat. No dysphagia. She is anxious to go home. Review of Systems 14 point review of system was conducted. All negative other than as mentioned in HPI. Past Medical History Past Medical History: Atrial Fibrillation, CVA/TIA, Dementia, GERD/Reflux, Hyperlipidemia, Hypertension, Osteoarthritis (OA), Pneumonia, Thyroid Disorder Additional Past Medical History / Comment(s): 07/21/15 Pt presented to [facility] ER with a fall at home after which she had L hip and L knee pain, 2ndary weakness. Pt is admitted with clinical impression of fall, L hip fracture. Pt has dementia and lives with her guicho who is here and assists with past medical hx. Other HX: CVA's and TIA's, tracheobronchitis, RLL NODULE-thought to be scar tissue, pelvic fracture, DJD, osteoporosis, back pain on occasion, skin cancer with removal, incontinence of urine-wears pad, hemorrhoids, thyroid nodules and COPD per past medical record but daughter has no recollection of these. History of Any Multi-Drug Resistant Organisms: None Reported Past Surgical History: Appendectomy, Cholecystectomy, Hysterectomy, Joint Replacement Additional Past Surgical History / Comment(s): Bilateral EYE CATARACT SX, bladder suspension, colonoscopy, skin cancer removals. left hip replacement Past Anesthesia/Blood Transfusion Reactions: No Reported Reaction Past Psychological History: No Psychological Hx Reported Additional Psychological History / Comment(s): Pt has dementia and guicho states there have been more memory problems this past week. Pt left stove on this week. Pt uses walker since hip replacement. Pt does not drive-guicho takes her to appts. Smoking Status: Never smoker Past Alcohol Use History: None Reported Past Drug Use History: None Reported - Past Family History Sister(s) Family Medical History: Cancer Additional Family Medical History / Comment(s): colon CA Father Family Medical History: Unable to Obtain Additional Family Medical History / Comment(s): AT AGE 70 HX UNK Mother Family Medical History: Cancer Additional Family Medical History / Comment(s): AGE 55 BREAST CA Medications and Allergies Home Medications Medication Instructions Recorded Confirmed Type Garlic 1 tab PO AC-BRKFST 01/14/14 07/10/16 History Glucosamine-Chondr 500-400Mg 1 tab PO AC-BRKFST 01/14/14 07/10/16 History Multivitamin/Iron/Folic Acid 1 tab PO HS 01/14/14 07/10/16 History [Centrum Complete Multivit Tab] amLODIPine [Norvasc] 10 mg PO DAILY 01/14/14 07/10/16 History Donepezil HCl [Aricept] 10 mg PO BID 07/21/15 07/10/16 History Memantine [Namenda] 5 mg PO BID 07/21/15 07/10/16 History Pravastatin Sodium [Pravachol] 10 mg PO HS 07/21/15 07/10/16 History Acetaminophen Tab [Tylenol] 1,000 mg PO Q6HR PRN 05/07/16 07/10/16 History Rivaroxaban [Xarelto] 20 mg PO HS 05/07/16 07/10/16 History Allergies Allergy/AdvReac Type Severity Reaction Status Date / Time Sulfa (Sulfonamide Allergy Unknown Verified 07/10/16 19:45 Antibiotics) Physical Exam Vitals: Vital Signs Temp Pulse Pulse Resp BP BP Pulse Ox 07/11/16 08:00 78 16 07/11/16 07:00 97.6 F 78 16 113/61 95 07/11/16 01:22 18 07/11/16 00:57 96.3 F L 77 18 139/70 96 07/10/16 23:55 96.7 F L 68 18 117/54 96 Intake and Output 07/10/16 07/11/16 07/11/16 22:59 06:59 14:59 Intake Total 100 Balance 100 Intake: IV 100 Sodium Chloride 0.9% 1, 100 000 ml @ 20 mls/hr IV . Q24H [facility] Rx#:[id number] Other: Voiding Method Bedside Commode Bedside Commode Diaper Diaper Incontinent Incontinent # Voids 1 # Bowel Movements 1 Weight 63.503 kg Patient Weight 07/12/16 06:59 Weight 63.503 kg GENERAL EXAM: Alert, active, comfortable in no apparent distress. HEAD: Normocephalic. EYES: Normal reaction of pupils, equal size. NOSE: Clear with pink turbinates. THROAT: No erythema or exudates. NECK: No masses, no JVD. CHEST: No chest wall deformity. LUNGS: Equal air entry with no crackles, wheeze, rhonchi or dullness. CVS: S1 and S2 normal with no audible murmurs, regular rhythm. ABDOMEN: No hepatosplenomegaly, normal bowel sounds, no guarding or rigidity. SPINE: No scoliosis or deformity SKIN: No rashes CENTRAL NERVOUS SYSTEM: No focal deficits, tone is normal in all 4 extremities. Extremities: There is no significant peripheral edema. No clubbing, no cyanosis. Peripheral pulses are intact. Results - Laboratory Findings CBC and BMP: 07/10/16 20:15 07/10/16 20:15 - Diagnostic Findings Chest x-ray: image reviewed Assessment and Plan Plan: Impression: #1 Accidental overdose on kerosene, ingested a few swallows. #2 Chronic changes on the chest x-ray with no pulmonary complaints. No concern regarding aspiration at this point. #3 Chronic atrial fibrillation, anticoagulated with Xarelto. #4 Dementia. #5 Hyperlipidemia. #6 Hypertension. Plan: The patient was seen and evaluated by Dr. Camargo. Her chest x-ray and labs were reviewed. She is stable from the pulmonary standpoint. No concerns regarding aspiration or chemical injury. She is cleared for discharge and could follow- up with Dr. Viramontes in our office in 1 week's time. Her daughter is encouraged however to call sooner with any pulmonary issues or concerns. Time with Patient: Greater than 30
[2016-07-11] MEDS ORDERED: THIAMINE 100 MG TAB PO SCH (12:00)
--- NOTE | 2016-07-11 15:16 | HP ---
HISTORY AND PHYSICAL/DISCHARGE SUMMARY: DATE OF ADMISSION: This 85-year-old patient of Dr. Dolan, comes in after accidental ingestion of kerosene. Patient is admitted for close monitoring overnight and patient does not have any other symptoms. Patient is otherwise clinically doing well. Patient will be discharged today. REVIEW OF SYSTEMS: CONSTITUTIONAL: No fever, no malaise, no fatigue. HEENT: No recent visual problems or hearing problems. Denied any sore throat. CARDIOVASCULAR: No chest pain, orthopnea, PND, no palpitations, no syncope. PULMONARY: No shortness of breath, no cough, no hemoptysis. GASTROINTESTINAL: No diarrhea, no nausea, no vomiting, no abdominal pain. Normoactive bowel sounds. NEUROLOGICAL: No headaches, no weakness, no numbness. HEMATOLOGICAL: Denies any bleeding or petechiae. GENITOURINARY: Denies any burning micturition, frequency, or urgency. MUSCULOSKELETAL/RHEUMATOLOGICAL: Denies any joint pain, swelling, or any muscle pain. ENDOCRINE: Denies any polyuria or polydipsia. The rest of the 14 point review of systems is negative. Patient does have history of dementia. Past medical history is significant for atrial fibrillation, CVA, TIA, dementia, gastroesophageal reflux disease, hyperlipidemia, hypertension, osteoarthritis, pneumonia, hypothyroidism, appendectomy, cholecystectomy, hysterectomy, joint replacement surgery, colonoscopy, skin cancer, left hip replacement surgery. FAMILY HISTORY: Sister had colon cancer, father's history is unable to obtain. Mother's history at age 55 with breast cancer. Home medications include: 1. Garlic. 2. Glucosamine. 3. Multivitamin. 4. Amlodipine. 5. Donepezil. 6. Memantine. 7. Pravastatin. 8. Acetaminophen. 9. Rivaroxaban. ALLERGIES: Allergic to SULFA DRUGS. PHYSICAL EXAMINATION: Temperature 97.6, pulse of 78, respiratory rate of 16, blood pressure is 113/61, saturating at 95% on 4 L. Will get ( ) and see how she saturates. If she is saturating okay, patient will discharged today. GENERAL: Alert and oriented x2 to 3 which is her baseline, elderly, frail woman. HEENT: Pupils are round and equally reacting to light. EOMI. No scleral icterus. No conjunctival pallor. Normocephalic, atraumatic. No pharyngeal erythema. No thyromegaly. CARDIOVASCULAR: S1 and S2 present. No murmurs, rubs, or gallops. PULMONARY: Chest is clear to auscultation, no wheezing or crackles. ABDOMEN: Soft, nontender, nondistended, normoactive bowel sounds. No palpable organomegaly. MUSCULOSKELETAL: No joint swelling or deformity. EXTREMITIES: No cyanosis, clubbing, or pedal edema. NEUROLOGICAL: Gross neurological examination did not reveal any focal deficits. SKIN: No rashes. LABORATORY DATA: CBC, CMP, essentially within normal limits. ASSESSMENT AND PLAN: 1. Accidental ingestion which is kerosene ingestion and patient is clinically doing okay although she is having a little bit of diarrhea, because of the kerosene and no further intervention at this point of time. 2. Dementia, supportive care and I let her blood pressure rather stay high to prevent falls. Patient's diastolic should not go below 60, which has been going on here. The are blood pressure measurements where his systolic as well as diastolics are pretty low with the diastolics going below 54. Patient will be high risk for fall with low diastolics because I will cut down amlodipine to 5 mg. 3. Hypertension, management as mentioned above. 4. Atrial fibrillation, rate controlled on Xarelto which will be continued. 5. Patient does have some pulmonary fibrotic changes in the chest x-ray. 6. Hyperlipidemia. 7. Hypertension. Patient will be discharged today to follow with Dr. Gan in 3 to 7 days. Activity as tolerated. Regular diet.
[2016-07-11] MEDS ORDERED: PRAVASTATIN SODIUM 20 MG TAB PO SCH (21:00)
[2016-07-11] MEDS ORDERED: RIVAROXABAN 10 MG TAB PO SCH (21:00)
[2016-07-11] MEDS ORDERED: MULTIVITAMINS, THERA 1 EACH TAB PO SCH (21:00)
== END 2016-07-11 13:59 | disposition home or self-care (01) ==
LOC: EC 18:59 → 4MS4W 23:24
PROVIDERS: ADMIT Hospitalist; ATTEND Hospitalist
DX: T52.0X1A Toxic effect of petroleum products, accidental (unintentional), initial encounter (principal); K52.1 Toxic gastroenteritis and colitis; I48.2 Chronic atrial fibrillation; F03.90 Unspecified dementia, unspecified severity, without behavioral disturbance, psychotic disturbance, mood disturbance, and anxiety; E78.5 Hyperlipidemia, unspecified; I10 Essential (primary) hypertension; J98.11 Atelectasis; M19.90 Unspecified osteoarthritis, unspecified site; R32 Unspecified urinary incontinence; Z79.899 Other long term (current) drug therapy; Z79.02 Long term (current) use of antithrombotics/antiplatelets; Z88.2 Allergy status to sulfonamides; Z86.73 Personal history of transient ischemic attack (TIA), and cerebral infarction without residual deficits; Z80.0 Family history of malignant neoplasm of digestive organs; Y92.009 Unspecified place in unspecified non-institutional (private) residence as the place of occurrence of the external cause
CPT/HCPCS: 99285; 36415; 93005; 80053; 83735; 85025; 71010; 71020; G0378 ×2

== ENCOUNTER → 2017-08-18 | Outpatient (CLI) | payer MEDICARE, BC ==
--- NOTE | 2017-08-19 05:53 | US ---
EXAMINATION TYPE: US pelvic complete DATE OF EXAM: 08/18/2017 COMPARISON: NONE CLINICAL HISTORY: R31.9 hematuria x 2 weeks TECHNIQUE: Transabdominal (TA).Patient is incontinent and has Alzheimer's per daughter; hysterectomy and bilateral oophorectomy EXAM MEASUREMENTS: Uterus, Endometrial Stripe,Right Ovary, Left Ovary: surgically removed Bladder: mobile hyperechoic echoes are noted in posterior bladder; irregular wall as bladder may not be fully distended, but no masses were seen. Bilateral ureteral jets were seen. No post void bladder volume assessed due to inability to void on command. Plantar is not greatly distended but there is no suspicious intraluminal mass. Bladder wall is diffus kim mildly thickened an not completely anechoic, underlying cystitis should be considered. IMPRESSION: As above, considered cystitis. Correlate clinically. Consider further investigation with CT urogram to assess symptoms of hematuria if they persist after medical treatment.
== END | disposition home or self-care (01) ==
LOC: RADUSWWP 16:14
PROVIDERS: ATTEND Internal Medicine
DX: R31.9 Hematuria, unspecified (principal); Z90.722 Acquired absence of ovaries, bilateral; Z90.710 Acquired absence of both cervix and uterus
CPT/HCPCS: 76857

== ENCOUNTER 2017-10-12 13:42 | Inpatient (IN) | payer MEDICARE, BC ==
--- NOTE | 2017-10-12 13:52 | ED ---
Weakness HPI - General Stated complaint: UTI Time Seen by Provider: 10/12/17 13:42 Source: family, EMS, RN notes reviewed, old records reviewed Mode of arrival: EMS - History of Present Illness Initial comments: This 87-year-old female was brought in by EMS with complaints of weakness today. She normally gets around with a walker and could not ambulate today she was up yesterday able ambulate with her walker in a store. Today she could not do this. She did just stop using an antibiotic her third round for urinary tract infection symptoms. She was on Cipro for 2 rounds and then Macrobid for the last round. She had profound sweats this morning no complaints of nausea vomiting. She has Alzheimer's so her eval by EMS with somewhat limited. Per her daughter she did fall this morning but no injury reported. MD Complaint: generalized weakness - Related Data Home Medications Medication Instructions Recorded Confirmed Garlic 1 tab PO DAILY 01/14/14 10/12/17 Glucosamine-Chondr 500-400Mg 1 tab PO DAILY 01/14/14 10/12/17 Multivitamin/Iron/Folic Acid 1 tab PO HS 01/14/14 10/12/17 [Centrum Complete Multivit Tab] Donepezil HCl [Aricept] 10 mg PO BID 07/21/15 10/12/17 Memantine [Namenda] 5 mg PO BID 07/21/15 10/12/17 Pravastatin Sodium [Pravachol] 10 mg PO DAILY 07/21/15 10/12/17 Acetaminophen Tab [Tylenol] 1,000 mg PO HS 05/07/16 10/12/17 Rivaroxaban [Xarelto] 20 mg PO DAILY 05/07/16 10/12/17 Melatonin 10 mg PO HS 04/10/17 10/12/17 Thiamine [Vitamin B-1] 100 mg PO DAILY 04/10/17 10/12/17 amLODIPine [Norvasc] 10 mg PO DAILY 04/10/17 10/12/17 Previous Rx's Medication Instructions Recorded Hydrocodone/Acetaminophen [[place] 1 tab PO Q6HR PRN #20 tab 04/10/17 5-325] Allergies Allergy/AdvReac Type Severity Reaction Status Date / Time Sulfa (Sulfonamide Allergy Unknown Verified 10/12/17 14:28 Antibiotics) Review of Systems ROS Statement: Those systems with pertinent positive or pertinent negative responses have been documented in the HPI. ROS Other: All systems not noted in ROS Statement are negative. Past Medical History Past Medical History: Atrial Fibrillation, CVA/TIA, Dementia, GERD/Reflux, Hyperlipidemia, Hypertension, Osteoarthritis (OA), Pneumonia, Thyroid Disorder Additional Past Medical History / Comment(s): 07/21/[address] [facility] ER with a fall at home after which she had L hip and L knee pain, 2ndary weakness. Pt is admitted with clinical impression of fall, L hip fracture. Pt has dementia and lives with her guicho who is here and assists with past medical hx. Other HX: CVA's and TIA's, tracheobronchitis, RLL NODULE-thought to be scar tissue, pelvic fracture, DJD, osteoporosis, back pain on occasion, skin cancer with removal, incontinence of urine-wears pad, hemorrhoids, thyroid nodules and COPD per past medical record but daughter has no recollection of these. History of Any Multi-Drug Resistant Organisms: None Reported Past Surgical History: Appendectomy, Cholecystectomy, Hysterectomy, Joint Replacement Additional Past Surgical History / Comment(s): Bilateral EYE CATARACT SX, bladder suspension, colonoscopy, skin cancer removals. left hip replacement Past Anesthesia/Blood Transfusion Reactions: No Reported Reaction Past Psychological History: No Psychological Hx Reported Additional Psychological History / Comment(s): Pt has dementia and guicho states there have been more memory problems this past week. Pt left stove on this week. Pt uses walker since hip replacement. Pt does not drive-guicho takes her to appts. Smoking Status: Never smoker Past Alcohol Use History: None Reported Past Drug Use History: None Reported - Past Family History Sister(s) Family Medical History: Cancer Additional Family Medical History / Comment(s): colon CA Father Family Medical History: Unable to Obtain Additional Family Medical History / Comment(s): AT AGE 70 HX UNK Mother Family Medical History: Cancer Additional Family Medical History / Comment(s): AGE 55 BREAST CA General Exam - General Exam Comments Initial Comments: Is a well-developed well-nourished awake alert confused female General appearance: alert, in no apparent distress Head exam: Present: atraumatic, normocephalic, normal inspection Eye exam: Present: normal appearance, PERRL, EOMI. Absent: scleral icterus, conjunctival injection, periorbital swelling ENT exam: Present: mucous membranes dry Neck exam: Present: normal inspection, full ROM. Absent: tenderness, meningismus, lymphadenopathy Respiratory exam: Present: normal lung sounds bilaterally. Absent: respiratory distress, wheezes, rales, rhonchi, stridor Cardiovascular Exam: Present: regular rate, normal rhythm, normal heart sounds. Absent: systolic murmur, diastolic murmur, rubs, gallop, clicks GI/Abdominal exam: Present: soft, normal bowel sounds. Absent: distended, tenderness, guarding, rebound, rigid, bruit, pulsatile mass, hernia Extremities exam: Present: normal inspection, full ROM, normal capillary refill. Absent: tenderness, pedal edema, joint swelling, calf tenderness Back exam: Present: normal inspection Neurological exam: Present: alert, oriented X3, CN II-XII intact Psychiatric exam: Present: normal affect, normal mood Skin exam: Present: warm, dry, intact, normal color. Absent: rash Course Vital Signs 10/12/17 10/12/17 13:47 14:16 Temperature 97.4 F L Pulse Rate 74 83 Respiratory 16 18 Rate Blood Pressure 116/59 119/64 O2 Sat by Pulse 93 L 96 Oximetry EKG Findings - EKG Results: EKG: interpreted by ERMD, sinus rhythm (Rate was 73. Interval 158 QRS 102 QT since QTC 474/522: QT occasional PVC) Medical Decision Making - Medical Decision Making I did discuss findings with the patient's family and facial be admitted for IV hydration and further evaluation. Dr. Morgan did come to the emergency department to see the patient had previously discuss case with Dr. Martin - Lab Data Result diagrams: 10/12/17 14:00 10/12/17 14:00 Lab Results 10/12/17 10/12/17 10/12/17 Range/Units 14:00 14:00 14:00 WBC (3.8-10.6) k/uL RBC (3.80-5.40) m/uL Hgb (11.4-16.0) gm/dL Hct (34.0-46.0) % MCV (80.0-100.0) fL MCH (25.0-35.0) pg MCHC (31.0-37.0) g/dL RDW (11.5-15.5) % Plt Count (150-450) k/uL Neutrophils % % Lymphocytes % % Monocytes % % Eosinophils % % Basophils % % Neutrophils # (1.3-7.7) k/uL Lymphocytes # (1.0-4.8) k/uL Monocytes # (0-1.0) k/uL Eosinophils # (0-0.7) k/uL Basophils # (0-0.2) k/uL Sodium 140 (137-145) mmol/L Potassium 3.5 (3.5-5.1) mmol/L Chloride 102 (98-107) mmol/L Carbon Dioxide 25 (22-30) mmol/L Anion Gap 13 mmol/L BUN 23 H (7-17) mg/dL Creatinine 0.70 (0.52-1.04) mg/dL Est GFR (CKD-EPI)AfAm 89 (>60 ml/min/1.73 sqM) Est GFR (CKD-EPI)NonAf 77 (>60 ml/min/1.73 sqM) Glucose 125 H (74-99) mg/dL Plasma Lactic Acid Stephen 2.2 H* (0.7-2.0) mmol/L Calcium 8.7 (8.4-10.2) mg/dL Magnesium 2.2 (1.6-2.3) mg/dL Total Bilirubin 0.8 (0.2-1.3) mg/dL AST 26 (14-36) U/L ALT 29 (9-52) U/L Alkaline Phosphatase 71 (38-126) U/L Ammonia 11 (<30) umol/L Total Creatine Kinase 21 L (30-135) U/L CK-MB (CK-2) 0.4 (0.0-2.4) ng/mL CK-MB (CK-2) Rel Index 1.9 Troponin I <0.012 (0.000-0.034) ng/mL Total Protein 6.1 L (6.3-8.2) g/dL Albumin 3.4 L (3.5-5.0) g/dL Amylase 48 (30-110) U/L Lipase 47 (23-300) U/L Urine Color Urine Appearance (Clear) Urine pH (5.0-8.0) Ur Specific [place] (1.001-1.035) Urine Protein (Negative) Urine Glucose (UA) (Negative) Urine Ketones (Negative) Urine Blood (Negative) Urine Nitrite (Negative) Urine Bilirubin (Negative) Urine Urobilinogen (<2.0) mg/dL Ur Leukocyte Esterase (Negative) Urine RBC (0-5) /hpf Urine WBC (0-5) /hpf Ur Squamous Epith Cells (0-4) /hpf Urine Mucus (None) /hpf 10/12/17 10/12/17 Range/Units 14:00 14:00 WBC 11.1 H (3.8-10.6) k/uL RBC 4.09 (3.80-5.40) m/uL Hgb 12.3 (11.4-16.0) gm/dL Hct 37.3 (34.0-46.0) % MCV 91.2 (80.0-100.0) fL MCH 30.1 (25.0-35.0) pg MCHC 33.0 (31.0-37.0) g/dL RDW 15.1 (11.5-15.5) % Plt Count 231 (150-450) k/uL Neutrophils % 79 % Lymphocytes % 11 % Monocytes % 7 % Eosinophils % 2 % Basophils % 0 % Neutrophils # 8.7 H (1.3-7.7) k/uL Lymphocytes # 1.2 (1.0-4.8) k/uL Monocytes # 0.8 (0-1.0) k/uL Eosinophils # 0.2 (0-0.7) k/uL Basophils # 0.0 (0-0.2) k/uL Sodium (137-145) mmol/L Potassium (3.5-5.1) mmol/L Chloride (98-107) mmol/L Carbon Dioxide (22-30) mmol/L Anion Gap mmol/L BUN (7-17) mg/dL Creatinine (0.52-1.04) mg/dL Est GFR (CKD-EPI)AfAm (>60 ml/min/1.73 sqM) Est GFR (CKD-EPI)NonAf (>60 ml/min/1.73 sqM) Glucose (74-99) mg/dL Plasma Lactic Acid Stephen (0.7-2.0) mmol/L Calcium (8.4-10.2) mg/dL Magnesium (1.6-2.3) mg/dL Total Bilirubin (0.2-1.3) mg/dL AST (14-36) U/L ALT (9-52) U/L Alkaline Phosphatase (38-126) U/L Ammonia (<30) umol/L Total Creatine Kinase (30-135) U/L CK-MB (CK-2) (0.0-2.4) ng/mL CK-MB (CK-2) Rel Index Troponin I (0.000-0.034) ng/mL Total Protein (6.3-8.2) g/dL Albumin (3.5-5.0) g/dL Amylase (30-110) U/L Lipase (23-300) U/L Urine Color Yellow Urine Appearance Clear (Clear) Urine pH 6.0 (5.0-8.0) Ur Specific [place] 1.022 (1.001-1.035) Urine Protein 1+ H (Negative) Urine Glucose (UA) Trace H (Negative) Urine Ketones Negative (Negative) Urine Blood Small H (Negative) Urine Nitrite Negative (Negative) Urine Bilirubin Negative (Negative) Urine Urobilinogen <2.0 (<2.0) mg/dL Ur Leukocyte Esterase Small H (Negative) Urine RBC 12 H (0-5) /hpf Urine WBC 4 (0-5) /hpf Ur Squamous Epith Cells 1 (0-4) /hpf Urine Mucus Occasional H (None) /hpf - Radiology Data Radiology results: report reviewed (I did review the imaging and report there is evidence of diffuse peribronchial cuffing suggesting bronchitis or reactive airway disease), image reviewed Disposition Clinical Impression: Dehydration, Lactic acidosis, Weakness, Bronchitis Disposition: ADMITTED IP TO THIS [facility] Condition: Stable Referrals: Liliana Gan MD [Primary Care Provider] - 1-2 days
[2017-10-12 14:28] LABS: Basophils % (A) 0 %; Eosinophils # (A) 0.2 k/uL (0-0.7); Eosinophils % (A) 2 %; HCT 37.3 % (34.0-46.0); HGB 12.3 gm/dL (11.4-16.0); Lymphocytes # (A) 1.2 k/uL (1.0-4.8); Lymphocytes % (A) 11 %; MCH 30.1 pg (25.0-35.0); MCV 91.2 fL (80.0-100.0); Mean Platelet Volume 6.8; Monocytes # (A) 0.8 k/uL (0-1.0); Monocytes % (A) 7 %; Neutrophils # (A) 8.7 k/uL (1.3-7.7); Neutrophils % (A) 79 %; Platelet Count 231 k/uL (150-450); RBC 4.09 m/uL (3.80-5.40); RDW 15.1 % (11.5-15.5); WBC 11.1 k/uL (3.8-10.6)
[2017-10-12 14:29] LABS: Appearance,Urine Clear (Clear); Bilirubin,Urine Negative (Negative); Blood,Urine Small (Negative); Color,Urine Yellow; Glucose,Urine (UA) Trace (Negative); Ketones,Urine Negative (Negative); Leukocyte Esterase,Urine Small (Negative); Mucus,Urine Occasional /hpf; Nitrite,Urine Negative (Negative); Protein,Urine 1+ (Negative); RBC,Urine 12 /hpf (0-5); Specific Gravity,Urine 1.022 (1.001-1.035); Squamous Epithelial Cell,Urine 1 /hpf (0-4); Urobilinogen,Urine <2.0 mg/dL (<2.0); WBC,Urine 4 /hpf (0-5)
[2017-10-12 14:40] LABS: Albumin 3.4 g/dL (3.5-5.0); Calcium 8.7 mg/dL (8.4-10.2); Magnesium 2.2 mg/dL (1.6-2.3); Potassium 3.5 mmol/L (3.5-5.1); Total Bilirubin 0.8 mg/dL (0.2-1.3); Total Protein 6.1 g/dL (6.3-8.2)
[2017-10-12 14:43] LABS: Creatine Kinase 21 U/L (30-135); Lactic Acid, Venous 2.2 mmol/L (0.7-2.0)
--- NOTE | 2017-10-12 14:50 | XR ---
EXAMINATION TYPE: XR chest 2V DATE OF EXAM: 10/12/2017 COMPARISON: 07/11/2016 HISTORY: Cough TECHNIQUE: Frontal and lateral views of the chest are obtained. FINDINGS: There is a chronic right basilar opacity is similar to the exam of 07/11/2016 with bilateral peribronchial cuffing and interstitial prominence. Biapical lucency suggests underlying COPD.. Her a spect and medial aspect of the lung apices are obscured by the patient's chin. Cardiomediastinal silh ouette is mildly enlarged. There is generalized osseous demineralization with mild multilevel degener ative changes of the thoracic spine and moderate of the shoulders. No sizable pneumothorax or pleural effusion. IMPRESSION: Diffuse peribronchial cuffing suggesting bronchitis or reactive airway disease in a back ground of COPD. Chronic right basilar opacity in comparison to 2017 likely relates to chronic atelect asis and/or pleural parenchymal scarring.
[2017-10-12 14:54] LABS: Creatine Kinase MB 0.4 ng/mL (0.0-2.4); Troponin I <0.012 ng/mL (0.000-0.034)
[2017-10-12] MEDS ORDERED: SODIUM CHLORIDE 0.9% 500 ML IV STA (15:01)
--- NOTE | 2017-10-12 15:02 | CT ---
EXAMINATION TYPE: CT brain wo con DATE OF EXAM: 10/12/2017 COMPARISON: 09/08/2015 HISTORY: Patient poor historian CT DLP: 1156.1 mGycm Automated exposure control for dose reduction was used. FINDINGS: There is encephalomalacia of the left frontal lobe from prior infarct. There is also encephalomalacia in the right posterior parietal lobe and left centrum semiovale of the left parietal lobe from prior infarcts. Additional area of left frontal encephalomalacia is seen. There is extensive prominence of the peripheral sulci and ventricular system compatible with cerebral atrophy. No suspicious extra-ax ial fluid collection. No acute intracranial hemorrhage or midline shift. Confluent hypoattenuated reg ions are seen within the periventricular and subcortical white matter most commonly related to sequel a of microangiopathy. Calvarium appears intact. Paranasal sinuses are well aerated as are the mastoid air cells. IMPRESSION: MULTIPLE BILATERAL AREAS OF ENCEPHALOMALACIA FROM PRIOR INFARCTS. NO ACUTE INTRACRANIAL PROCESS. EXTE NSIVE WHITE MATTER CHANGES AND CEREBRAL ATROPHY.
[2017-10-12] MEDS ORDERED: NALOXONE 0.4 MG/ML 1 ML VIAL IV PRN (15:56)
[2017-10-12] MEDS ORDERED: ACETAMINOPHEN TAB 325 MG TAB PO PRN (15:56)
[2017-10-12] MEDS ORDERED: HYDROcodone/APAP 5-325MG 1 EACH TAB PO PRN (15:58)
[2017-10-12 17:33] VITALS: BMI 26.5
[2017-10-12] MEDS: DONEPEZIL 10 MG TAB PO SCH (19:50)
[2017-10-12] MEDS: DOXYCYCLINE MONOHYDRATE 100 MG CAPSULE PO SCH (19:50)
[2017-10-12] MEDS: SODIUM CHLORIDE 0.9% 1,000 ML IV SCH (19:51)
[2017-10-12] MEDS: MEMANTINE 5 MG TAB PO SCH (19:51)
[2017-10-12] MEDS ORDERED: MULTIVITAMINS, THERA 1 EACH TAB PO SCH (21:00)
[2017-10-12] MEDS ORDERED: MELATONIN 5 MG TABLET PO SCH (21:00)
[2017-10-13] MEDS: SODIUM CHLORIDE 0.9% 1,000 ML IV SCH ×2 (05:41→08:17)
[2017-10-13 06:01] VITALS: BP 144/70; PULSE 82; RESP 16; TEMP 97.6
[2017-10-13] MEDS: DONEPEZIL 10 MG TAB PO SCH (08:16)
[2017-10-13] MEDS: DOXYCYCLINE MONOHYDRATE 100 MG CAPSULE PO SCH (08:17)
[2017-10-13] MEDS: MEMANTINE 5 MG TAB PO SCH (08:17)
[2017-10-13] MEDS ORDERED: GARLIC PO SCH (09:00)
[2017-10-13] MEDS ORDERED: THIAMINE 100 MG TAB PO SCH (09:00)
[2017-10-13] MEDS ORDERED: COLLAGENASE 250 UNIT/GM OINTMENT 30 GM TUBE TOPICAL SCH (09:00)
[2017-10-13] MEDS ORDERED: PRAVASTATIN SODIUM 20 MG TAB PO SCH (09:00)
[2017-10-13] MEDS ORDERED: amLODIPine 10 MG TAB PO SCH (09:00)
[2017-10-13] MEDS ORDERED: GLUCOSAMINE CHONDR MSM PO SCH (09:00)
[2017-10-13] MEDS ORDERED: RIVAROXABAN 20 MG TAB PO SCH (09:00)
[2017-10-13 11:49] LABS: Basophils % (A) 0 %; Eosinophils # (A) 0.2 k/uL (0-0.7); Eosinophils % (A) 3 %; HCT 38.6 % (34.0-46.0); HGB 12.8 gm/dL (11.4-16.0); Lymphocytes # (A) 1.3 k/uL (1.0-4.8); Lymphocytes % (A) 18 %; MCH 30.2 pg (25.0-35.0); MCHC 33.1 g/dL (31.0-37.0); MCV 91.1 fL (80.0-100.0); Mean Platelet Volume 6.7; Monocytes # (A) 0.6 k/uL (0-1.0); Monocytes % (A) 8 %; Neutrophils % (A) 69 %; Platelet Count 208 k/uL (150-450); RBC 4.24 m/uL (3.80-5.40); WBC 7.2 k/uL (3.8-10.6)
[2017-10-13 12:33] LABS: Anion Gap 12 mmol/L; Blood Urea Nitrogen 16 mg/dL (7-17); Calcium 8.5 mg/dL (8.4-10.2); Carbon Dioxide 22 mmol/L (22-30); Chloride 105 mmol/L (98-107); Glucose 98 mg/dL (74-99); Potassium 3.4 mmol/L (3.5-5.1); Sodium 139 mmol/L (137-145)
--- NOTE | 2017-10-13 15:02 | P.HPIM ---
History of Present Illness H&P Date: 10/12/17 Chief Complaint: Generalized weakness and cough Patient is a 87-year-old male with a known history of paroxysmal atrial fibrillation on anticoagulation, dementia, history of CVA/TIA and are sure that it is and hypothyroidism and also history of previous fall/left hip fracture came to the ER, was likely brought to ER by her daughter. Patient has been feeling very weak. Patient was not able to sleep well last night and was having cough all night which is mainly dry cough and also felt very weak today which made her to come to the hospital. Patient also felt clammy and was having subjective fevers when she was at home. No chills. She normally gets around with a walker and could not ambulate today she was up yesterday able ambulate with her walker in a store. Today she could not do this. She did just stop using an antibiotic her third round for urinary tract infection symptoms. She was on Cipro for 2 rounds and then Macrobid for the last round. She had profound sweats this morning no complaints of nausea vomiting. She has Alzheimer's so her eval by EMS with somewhat limited. Per her daughter she did fall this morning but no injury reported. Chest x-ray showed diffuse. Bronchial cuffing suggesting bronchitis or reactive airway disease in a background of COPD he did chronic right basilar obesity in comparison to 2017 likely related to chronic atelectasis and/or pleural parenchymal scaring. CT head showed multiple bilateral areas of encephalomalacia from prior infarcts. No acute intracranial process. Extensive white matter changes and cerebral atrophy. EKG showed sinus rhythm with PACs Lactic acid 2.2 WBC 11.1 and BNP 23 Review of Systems Constitutional: Patient denies does not have any fever. Otherwise patient felt clammy. Patient does have generalized weakness. Abdomen: Patient denied nausea vomiting and diarrhea and abdominal pain. Cardiovascular: No complains of chest pain are palpitations Respiratory: Cough without sputum production.. No shortness of breath Neurologic: Patient denied any numbness or tingling headache. Musculoskeletal: Patient denies any complaints of joint swelling or deformity. Complete review of systems could not be apparent from the patient due to underlying dementia. Past Medical History Past Medical History: Atrial Fibrillation, CVA/TIA, Dementia, GERD/Reflux, Hyperlipidemia, Hypertension, Osteoarthritis (OA), Pneumonia, Thyroid Disorder Additional Past Medical History / Comment(s): 07/21/15 Pt presented to [facility] ER with a fall at home after which she had L hip and L knee pain, 2ndary weakness. Pt is admitted with clinical impression of fall, L hip fracture. Pt has dementia and lives with her guicho who is here and assists with past medical hx. Other HX: CVA's and TIA's, tracheobronchitis, RLL NODULE-thought to be scar tissue, pelvic fracture, DJD, osteoporosis, back pain on occasion, skin cancer with removal, incontinence of urine-wears pad, hemorrhoids, thyroid nodules and COPD per past medical record but daughter has no recollection of these. History of Any Multi-Drug Resistant Organisms: None Reported Past Surgical History: Appendectomy, Cholecystectomy, Hysterectomy, Joint Replacement Additional Past Surgical History / Comment(s): Bilateral EYE CATARACT SX, bladder suspension, colonoscopy, skin cancer removals. left hip replacement Past Anesthesia/Blood Transfusion Reactions: No Reported Reaction Past Psychological History: No Psychological Hx Reported Additional Psychological History / Comment(s): Pt has dementia and guicho states there have been more memory problems this past week. Pt left stove on this week. Pt uses walker since hip replacement. Pt does not drive-guicho takes her to appts. Smoking Status: Never smoker Past Alcohol Use History: None Reported Past Drug Use History: None Reported - Past Family History Sister(s) Family Medical History: Cancer Additional Family Medical History / Comment(s): colon CA Father Family Medical History: Unable to Obtain Additional Family Medical History / Comment(s): AT AGE 70 HX UNK Mother Family Medical History: Cancer Additional Family Medical History / Comment(s): AGE 55 BREAST CA Medications and Allergies Home Medications Medication Instructions Recorded Confirmed Type Garlic 1 tab PO DAILY 01/14/14 10/12/17 History Glucosamine-Chondr 500-400Mg 1 tab PO DAILY 01/14/14 10/12/17 History Multivitamin/Iron/Folic Acid 1 tab PO HS 01/14/14 10/12/17 History [Centrum Complete Multivit Tab] Donepezil HCl [Aricept] 10 mg PO BID 07/21/15 10/12/17 History Memantine [Namenda] 5 mg PO BID 07/21/15 10/12/17 History Pravastatin Sodium [Pravachol] 10 mg PO DAILY 07/21/15 10/12/17 History Acetaminophen Tab [Tylenol] 1,000 mg PO HS 05/07/16 10/12/17 History Rivaroxaban [Xarelto] 20 mg PO DAILY 05/07/16 10/12/17 History Hydrocodone/Acetaminophen [[place] 1 tab PO Q6HR PRN #20 tab 04/10/17 10/12/17 Rx 5-325] Melatonin 10 mg PO HS 04/10/17 10/12/17 History Thiamine [Vitamin B-1] 100 mg PO DAILY 04/10/17 10/12/17 History amLODIPine [Norvasc] 10 mg PO DAILY 04/10/17 10/12/17 History Doxycycline Monohydrate 100 mg PO BID 4 Days #8 capsule 10/13/17 Rx [Vibramycin] Allergies Allergy/AdvReac Type Severity Reaction Status Date / Time Sulfa (Sulfonamide Allergy Unknown Verified 10/12/17 14:28 Antibiotics) Physical Exam Vitals: Vital Signs Temp Pulse Pulse Resp BP BP Pulse Ox 10/12/17 17:49 97.2 F L 70 18 110/67 96 10/12/17 16:53 97.6 F 80 18 108/68 97 10/12/17 16:09 62 18 114/63 98 10/12/17 14:16 83 18 119/64 96 10/12/17 13:47 97.4 F L 74 16 116/59 93 L Intake and Output 10/12/17 10/12/17 10/12/17 06:59 14:59 22:59 Other: Weight 65.771 kg 65.771 kg PHYSICAL EXAMINATION: Patient is lying in the bed comfortably, no acute distress, awake alert and oriented.. HEENT: Normocephalic. Neck is supple. Pupils reactive. Nostrils clear. Oral cavity is moist. Ears reveal no drainage. Neck reveals no JVD, carotid bruits, or thyromegaly. CHEST EXAMINATION: Trachea is central. Symmetrical expansion. Bibasilar diminished air entry. Minimal rhonchi. No wheezing or crackles CARDIAC: Normal S1, S2 with no gallops. No murmurs ABDOMEN: Soft. Bowel sounds normal. No organomegaly. No abdominal bruits. Extremities: reveal no edema. No clubbing or cyanosis Neurologically awake, alert, oriented x2 with well-coordinated movements. No focal deficits noted Skin: No rash or skin lesions. Psychiatric: CoOperative. Could not be assessed completely Musculoskeletal: No joint swelling or deformity. Normal range of motion. Results CBC & Chem 7: 10/13/17 11:22 10/13/17 11:22 Labs: Abnormal Lab Results - Last 24 Hours (Table) 10/12/17 10/12/17 10/12/17 Range/Units 14:00 14:00 14:00 WBC (3.8-10.6) k/uL Neutrophils # (1.3-7.7) k/uL BUN 23 H (7-17) mg/dL Glucose 125 H (74-99) mg/dL Plasma Lactic Acid Stephen 2.2 H* (0.7-2.0) mmol/L Total Creatine Kinase 21 L (30-135) U/L Total Protein 6.1 L (6.3-8.2) g/dL Albumin 3.4 L (3.5-5.0) g/dL Urine Protein (Negative) Urine Glucose (UA) (Negative) Urine Blood (Negative) Ur Leukocyte Esterase (Negative) Urine RBC (0-5) /hpf Urine Mucus (None) /hpf 10/12/17 10/12/17 Range/Units 14:00 14:00 WBC 11.1 H (3.8-10.6) k/uL Neutrophils # 8.7 H (1.3-7.7) k/uL BUN (7-17) mg/dL Glucose (74-99) mg/dL Plasma Lactic Acid Stephen (0.7-2.0) mmol/L Total Creatine Kinase (30-135) U/L Total Protein (6.3-8.2) g/dL Albumin (3.5-5.0) g/dL Urine Protein 1+ H (Negative) Urine Glucose (UA) Trace H (Negative) Urine Blood Small H (Negative) Ur Leukocyte Esterase Small H (Negative) Urine RBC 12 H (0-5) /hpf Urine Mucus Occasional H (None) /hpf Thrombosis Risk Factor Assmnt - DVT/VTE Prophylaxis DVT/VTE Prophylaxis: Pharmacologic Prophylaxis ordered - Choose All That Apply Each Risk Factor Represents 3 Points: Age 75 years or older Thrombosis Risk Factor Assessment Total Risk Factor Score: 3 Thrombosis Risk Factor Assessment Level: Moderate Risk Assessment and Plan Assessment: Acute tracheobronchitis Generalized weakness and malaise Lactic acidosis secondary to dehydration and volume depletion Recent urinary tract infection and completed antibiotic course with Macrobid yesterday. UA negative at this time. Urine culture was ordered Paroxysmal atrial fibrillation. On anticoagulation History of CVA/TIA Dementia/Alzheimer's Hyperlipidemia Hypertension Osteoarthritis Hypothyroidism History of fall Right lower lobe nodule. Stable on follow-up with pulmonary as an outpatient Urinary incontinence wears diapers Plan: Patient will be converted on IV hydration. Will start on antibiotic treatment with doxycycline for tracheobronchitis and follow up closely. Urine culture and blood cultures were sent. We'll continue the home medications and further recommendations based on the clinical course. Discussed with her daughter at bedside in detail. Prognosis is guarded. Time with Patient: Greater than 30
--- NOTE | 2017-10-14 01:16 | P.DS ---
Providers Date of admission: 10/12/17 15:56 Expected date of discharge: 10/13/17 Attending physician: Jac Morgan Primary care physician: Malik Ford [facility] Course: Discharge diagnosis Acute tracheobronchitis Generalized weakness and malaise due to infection and dehydration Lactic acidosis secondary to dehydration and volume depletion Recent urinary tract infection and completed antibiotic course with Macrobid yesterday. UA negative at this time. Urine culture was ordered Paroxysmal atrial fibrillation. On anticoagulation History of CVA/TIA Dementia/Alzheimer's Hyperlipidemia Hypertension Osteoarthritis Hypothyroidism History of fall Right lower lobe nodule. Stable on follow-up with pulmonary as an outpatient Urinary incontinence wears diapers Hospital course Patient is a 87-year-old male with a known history of paroxysmal atrial fibrillation on anticoagulation, dementia, history of CVA/TIA and are sure that it is and hypothyroidism and also history of previous fall/left hip fracture came to the ER, was likely brought to ER by her daughter. Patient has been feeling very weak. Patient was not able to sleep well last night and was having cough all night which is mainly dry cough and also felt very weak today which made her to come to the hospital. Patient also felt clammy and was having subjective fevers when she was at home. No chills. She normally gets around with a walker and could not ambulate today she was up yesterday able ambulate with her walker in a store. Today she could not do this. She did just stop using an antibiotic her third round for urinary tract infection symptoms. She was on Cipro for 2 rounds and then Macrobid for the last round. She had profound sweats this morning no complaints of nausea vomiting. She has Alzheimer's so her eval by EMS with somewhat limited. Per her daughter she did fall this morning but no injury reported. Chest x-ray showed diffuse. Bronchial cuffing suggesting bronchitis or reactive airway disease in a background of COPD he did chronic right basilar obesity in comparison to 2017 likely related to chronic atelectasis and/or pleural parenchymal scaring. CT head showed multiple bilateral areas of encephalomalacia from prior infarcts. No acute intracranial process. Extensive white matter changes and cerebral atrophy. EKG showed sinus rhythm with PACs Lactic acid 2.2 WBC 11.1 and BNP 23 10/13/2017 Patient did improve clinically. Able to sit in a chair . otherwise much more awake and oriented. Tolerating oral diet. Lactic acidosis resolved. Dehydration improved. Patient is being discharged home with oral antibiotics in the form of doxycycline for tracheobronchitis. Urine culture showed no growth. Plan: Patient was continued on IV hydration. antibiotic treatment with doxycycline for tracheobronchitis and followed up closely. Urine culture and blood cultures were sent. Wound cultures showed no growth. Patient did improve clinically and is tolerating oral diet. Discussed with her daughter and caregiver. Patient will be discharged home and resume home.. Recommended to follow with her primary care physician Dr. Moreno as an outpatient. PHYSICAL EXAMINATION: Patient is lying in the bed comfortably, no acute distress, awake alert and oriented.. HEENT: Normocephalic. Neck is supple. Pupils reactive. Nostrils clear. Oral cavity is moist. Ears reveal no drainage. Neck reveals no JVD, carotid bruits, or thyromegaly. CHEST EXAMINATION: Trachea is central. Symmetrical expansion. Lung mondragon clear to auscultation and percussion. CARDIAC: Normal S1, S2 with no gallops. No murmurs ABDOMEN: Soft. Bowel sounds normal. No organomegaly. No abdominal bruits. Extremities: reveal no edema. No clubbing or cyanosis Neurologically awake, alert, oriented x3 with well-coordinated movements. No focal deficits noted Skin: No rash or skin lesions. Psychiatric: Coperative. Nonsuicidal Musculoskeletal: No joint swelling or deformity. Normal range of motion. Vital Signs - 24 hr 10/13/17 05:00 Temperature 97.6 F Pulse Rate [ 82 Pulse Oximetery ] Respiratory 16 Rate Blood Pressure 144/70 [Right Arm] O2 Sat by Pulse 94 L Oximetry Patient Condition at Discharge: Stable Plan - Discharge Summary New Discharge Prescriptions: New Doxycycline Monohydrate [Vibramycin] 100 mg PO BID 4 Days #8 capsule Continue Multivitamin/Iron/Folic Acid [Centrum Complete Multivit Tab] 1 tab PO HS Garlic 1 tab PO DAILY Glucosamine-Chondr 500-400Mg 1 tab PO DAILY Pravastatin Sodium [Pravachol] 10 mg PO DAILY Memantine [Namenda] 5 mg PO BID Donepezil HCl [Aricept] 10 mg PO BID Acetaminophen Tab [Tylenol] 1,000 mg PO HS Rivaroxaban [Xarelto] 20 mg PO DAILY amLODIPine [Norvasc] 10 mg PO DAILY Melatonin 10 mg PO HS Thiamine [Vitamin B-1] 100 mg PO DAILY Hydrocodone/Acetaminophen [[place] 5-325] 1 tab PO Q6HR PRN #20 tab PRN Reason: Pain Discharge Medication List Garlic 1 tab PO DAILY 01/14/14 [History] Glucosamine-Chondr 500-400Mg 1 tab PO DAILY 01/14/14 [History] Multivitamin/Iron/Folic Acid [Centrum Complete Multivit Tab] 1 tab PO HS [History] Donepezil HCl [Aricept] 10 mg PO BID 07/21/15 [History] Memantine [Namenda] 5 mg PO BID 07/21/15 [History] Pravastatin Sodium [Pravachol] 10 mg PO DAILY 07/21/15 [History] Acetaminophen Tab [Tylenol] 1,000 mg PO HS 05/07/16 [History] Rivaroxaban [Xarelto] 20 mg PO DAILY 05/07/16 [History] Hydrocodone/Acetaminophen [[place] 5-325] 1 tab PO Q6HR PRN #20 tab 04/10/17 [Rx] Melatonin 10 mg PO HS 04/10/17 [History] Thiamine [Vitamin B-1] 100 mg PO DAILY 04/10/17 [History] amLODIPine [Norvasc] 10 mg PO DAILY 04/10/17 [History] Doxycycline Monohydrate [Vibramycin] 100 mg PO BID 4 Days #8 capsule 10/13/17 [ Rx] Follow up Appointment(s)/Referral(s): Liliana Gan MD [Primary Care Provider] - 10/21/17 10:40 am [facility] Visiting Nurse, [NON-STAFF] - 1 Week Patient Instructions/Handouts: Doxycycline (By mouth), Dehydration (DC), Weakness (GEN) Discharge Disposition: HOME WITH HOME HEALTH SERVICES
[2017-10-14] MEDS ORDERED: RIVAROXABAN 15 MG TAB PO SCH (09:00)
== END 2017-10-13 15:40 | disposition home health service (06) | DRG 202 ==
LOC: EC 13:42 → 5MS5E 15:56
PROVIDERS: ADMIT Internal Medicine; ATTEND Internal Medicine
DX: J20.9 Acute bronchitis, unspecified (principal); E87.2 Acidosis; E86.0 Dehydration; G93.89 Other specified disorders of brain; I48.0 Paroxysmal atrial fibrillation; G30.9 Alzheimer's disease, unspecified; F02.80 Dementia in other diseases classified elsewhere, unspecified severity, without behavioral disturbance, psychotic disturbance, mood disturbance, and anxiety; E78.5 Hyperlipidemia, unspecified; I10 Essential (primary) hypertension; E03.9 Hypothyroidism, unspecified; K21.9 Gastro-esophageal reflux disease without esophagitis; M81.0 Age-related osteoporosis without current pathological fracture; M19.91 Primary osteoarthritis, unspecified site; R32 Unspecified urinary incontinence; Z87.01 Personal history of pneumonia (recurrent); Z79.01 Long term (current) use of anticoagulants; Z79.899 Other long term (current) drug therapy; Z87.81 Personal history of (healed) traumatic fracture; Z87.440 Personal history of urinary (tract) infections; Z86.73 Personal history of transient ischemic attack (TIA), and cerebral infarction without residual deficits; Z90.710 Acquired absence of both cervix and uterus; Z96.642 Presence of left artificial hip joint; Z90.49 Acquired absence of other specified parts of digestive tract; Z85.828 Personal history of other malignant neoplasm of skin; Z98.42 Cataract extraction status, left eye; Z98.41 Cataract extraction status, right eye; Z88.2 Allergy status to sulfonamides; Z80.0 Family history of malignant neoplasm of digestive organs; Z80.3 Family history of malignant neoplasm of breast
CPT/HCPCS: 36415; 70450; 71046; 80048; 80053; 81001; 82140; 82150; 82550; 82553; 83605; 83690; 83735; 84484; 85025; 87040; 87086; 93005; 96360; 99285

== ENCOUNTER 2017-11-13 17:24 | Emergency (ER) | payer MEDICARE, BC ==
[2017-11-13 17:32] VITALS: RESP 18
[2017-11-13] MEDS ORDERED: LIDOCAINE 1% INJ 10MG/ML (20 ML MDV) SQ ONE (17:53)
[2017-11-13] MEDS ORDERED: TOPICAL SKIN ADHESIVE 1 EACH AMP TOPICAL ONE (18:41)
--- NOTE | 2017-11-13 18:52 | ED ---
General Adult HPI - General Chief complaint: Fall Stated complaint: Fall-Head Lac Time Seen by Provider: 11/13/17 17:40 Source: family, RN notes reviewed Mode of arrival: wheelchair Limitations: no limitations - History of Present Illness Initial comments: 87-year-old female presents to the emergency department for a chief complaint of head injury. Patient was walking and went to sit down in her chair when she fell backwards and hit her head. Patient sustained a small laceration above the left ear. No loss of consciousness as witnessed by her daughter. Patient does have Alzheimer's and is currently at baseline according to daughter. Patient is alert and cooperative. She is interactive and answering questions. Patient denies any pain in the neck. No other injuries noted from fall. Patient does take Xarelto. Patient has no other complaints at this time including shortness of breath, chest pain, abdominal pain, nausea or vomiting, headache, or visual changes. - Related Data Home Medications Medication Instructions Recorded Confirmed Garlic 1 tab PO DAILY 01/14/14 10/12/17 Glucosamine-Chondr 500-400Mg 1 tab PO DAILY 01/14/14 10/12/17 Multivitamin/Iron/Folic Acid 1 tab PO HS 01/14/14 10/12/17 [Centrum Complete Multivit Tab] Donepezil HCl [Aricept] 10 mg PO BID 07/21/15 10/12/17 Memantine [Namenda] 5 mg PO BID 07/21/15 10/12/17 Pravastatin Sodium [Pravachol] 10 mg PO DAILY 07/21/15 10/12/17 Acetaminophen Tab [Tylenol] 1,000 mg PO HS 05/07/16 10/12/17 Rivaroxaban [Xarelto] 20 mg PO DAILY 05/07/16 10/12/17 Melatonin 10 mg PO HS 04/10/17 10/12/17 Thiamine [Vitamin B-1] 100 mg PO DAILY 04/10/17 10/12/17 amLODIPine [Norvasc] 10 mg PO DAILY 04/10/17 10/12/17 Previous Rx's Medication Instructions Recorded Hydrocodone/Acetaminophen [[place] 1 tab PO Q6HR PRN #20 tab 04/10/17 5-325] Doxycycline Monohydrate 100 mg PO BID 4 Days #8 capsule 10/13/17 [Vibramycin] Allergies Allergy/AdvReac Type Severity Reaction Status Date / Time Sulfa (Sulfonamide Allergy Unknown Verified 11/13/17 19:06 Antibiotics) Review of Systems ROS Statement: Those systems with pertinent positive or pertinent negative responses have been documented in the HPI. ROS Other: All systems not noted in ROS Statement are negative. Past Medical History Past Medical History: Atrial Fibrillation, COPD, CVA/TIA, Dementia, GERD/Reflux , Hyperlipidemia, Hypertension, Osteoarthritis (OA), Pneumonia, Thyroid Disorder Additional Past Medical History / Comment(s): weakness. dementiaHX: CVA's and TIA's, tracheobronchitis, RLL NODULE-, pelvic fracture, DJD, osteoporosis, , hemorrhoids, History of Any Multi-Drug Resistant Organisms: None Reported Past Surgical History: Appendectomy, Cholecystectomy, Hysterectomy, Joint Replacement Additional Past Surgical History / Comment(s): Bilateral EYE CATARACT SX, bladder suspension, colonoscopy, skin cancer removals. left hip replacement Past Anesthesia/Blood Transfusion Reactions: No Reported Reaction Past Psychological History: No Psychological Hx Reported Smoking Status: Never smoker Past Alcohol Use History: None Reported Past Drug Use History: None Reported - Past Family History Sister(s) Family Medical History: Cancer Additional Family Medical History / Comment(s): colon CA Father Family Medical History: Unable to Obtain Additional Family Medical History / Comment(s): AT AGE 70 HX UNK Mother Family Medical History: Cancer Additional Family Medical History / Comment(s): AGE 55 BREAST CA General Exam Limitations: no limitations General appearance: alert Head exam: Present: normocephalic, normal inspection. Absent: atraumatic ( there is a 2 cm lac above left ear) Eye exam: Present: normal appearance, PERRL, EOMI. Absent: scleral icterus, conjunctival injection, nystagmus, periorbital swelling ENT exam: Present: normal exam, normal oropharynx, mucous membranes moist, TM's normal bilaterally, normal external ear exam Neck exam: Present: normal inspection, full ROM. Absent: tenderness, meningismus, lymphadenopathy Respiratory exam: Present: normal lung sounds bilaterally. Absent: respiratory distress, wheezes, rales, rhonchi, stridor Cardiovascular Exam: Present: regular rate, normal rhythm, normal heart sounds. Absent: systolic murmur, diastolic murmur, rubs, gallop, clicks Neurological exam: Present: alert, CN II-XII intact, other (GCS 15. Pt has alzheimers and family states she is acting at baseline) Course Vital Signs 11/13/17 17:26 Temperature 97.8 F Pulse Rate 73 Respiratory 18 Rate Blood Pressure 124/75 O2 Sat by Pulse 94 L Oximetry Procedures - Procedures Initial comment: Patient or guardian consent: the patient or guardian's understanding of the procedure matches consent given Body area: Scalp above left ear Laceration length:2 cm Foreign bodies: no foreign bodies Tendon involvement: none Nerve involvement: none Vascular damage: no Anesthesia: None per request of family Local anesthetic: none Preparation: Patient was prepped and draped in the usual sterile fashion and wound was cleaned with iodine Irrigation solution: saline Irrigation method: Saline jet lavage and syringe Skin closure: exofin, applied with sterile technique Approximation difficulty: simple Dressing: antibiotic ointment and gauze Patient tolerance: Patient tolerated the procedure well with no immediate complications. Medical Decision Making - Medical Decision Making 87-year-old female presents to the emergency determine for chief lightheaded injury about one hour ago. Patient fell while trying to sit down and hit the back of her head. Daughter states patient did not lose consciousness. On exam no focal neuro deficits. GCS 15. I offered to staple the 2 cm had wound above the left ear but family strongly wished to have it glued instead because patient does not tolerate pain well becomes confused due to Alzheimer's. Wound was glued to the best of my ability. It does appear to be closed and bleeding has ceased. CT of the head shows no acute intracranial hemorrhage, mass effect, or midline shift. There is no definite new attenuation defect. CT cervical spine shows no acute fracture or dislocation. I did discuss extensively the need to return to the emergency department if patient deteriorates mentally or is not acting herself due to being on Xarelto. Family members are aware of this and will monitor. They will give Tylenol for pain. They will follow up with primary care in 1-2 days. Disposition Clinical Impression: Head injury, Laceration Disposition: HOME SELF-CARE Condition: Good Instructions: Laceration (ED), Head Injury (ED), Skin Adhesive Care (ED) Additional Instructions: Please give Tylenol for pain. Please monitor for any worsening symptoms such as increased confusion or pain. Monitor for signs infection such as spreading redness or drainage. Follow-up with primary care in 1-2 days. Return to the emergency Department if she has any worsening symptoms. Is patient prescribed a controlled substance at d/c from ED?: No Referrals: Liliana Gan MD [Primary Care Provider] - 1-2 days Time of Disposition: 19:43 (Dr Martins)
--- NOTE | 2017-11-13 19:18 | CT ---
EXAMINATION TYPE: CT brain oleine wo con DATE OF EXAM: 11/13/2017 COMPARISON: 10/12/2017 HISTORY: Fell and hit head. CT DLP: 1186.5 mGycm Automated exposure control for dose reduction was used. TECHNIQUE: CT scan of the head and cervical spine are performed without contrast. FINDINGS: There is no skull fracture or intracranial hemorrhage. The previously seen multifocal low-a ttenuation defects are redemonstrated without interval change. That is, no definite new attenuation d efect. There is no mass, mass effect, or midline shift identified. The ventricles and sulci are sim ilar in appearance. The globes are intact and the visualized sinuses are clear. Cervical spine is visualized in its entirety from C1 through upper thoracic levels and demonstrates s atisfactory alignment without evidence of acute fracture or dislocation. Prevertebral soft tissue ap pears within normal limits. Multilevel advanced cervical spondylosis changes are noted. The C1-C2 art iculation is unremarkable. IMPRESSION: 1. There is no acute fracture or dislocation evident in the cervical spine. 2. No acute intracranial hemorrhage, mass effect, or midline shift is seen.
[2017-11-13 19:55] VITALS: BP 143/79; PULSE 60; TEMP 98
== END 2017-11-13 19:45 | disposition home or self-care (01) ==
LOC: EC 17:24
DX: S01.01XA Laceration without foreign body of scalp, initial encounter (principal); I48.91 Unspecified atrial fibrillation; F03.90 Unspecified dementia, unspecified severity, without behavioral disturbance, psychotic disturbance, mood disturbance, and anxiety; E78.5 Hyperlipidemia, unspecified; I10 Essential (primary) hypertension; E07.9 Disorder of thyroid, unspecified; M81.0 Age-related osteoporosis without current pathological fracture; Z86.73 Personal history of transient ischemic attack (TIA), and cerebral infarction without residual deficits; Z85.828 Personal history of other malignant neoplasm of skin; Z96.642 Presence of left artificial hip joint; Z79.01 Long term (current) use of anticoagulants; Z79.899 Other long term (current) drug therapy; Z88.2 Allergy status to sulfonamides; W01.198A Fall on same level from slipping, tripping and stumbling with subsequent striking against other object, initial encounter; Y92.009 Unspecified place in unspecified non-institutional (private) residence as the place of occurrence of the external cause; Y93.01 Activity, walking, marching and hiking
CPT/HCPCS: 12001; 70450; 72125; 99283

== ENCOUNTER 2017-11-22 11:43 | Inpatient (IN) | payer MEDICARE, BC ==
--- NOTE | 2017-11-22 11:49 | ED ---
General Adult HPI - General Stated complaint: poss UTI Time Seen by Provider: 11/22/17 11:48 Source: RN notes reviewed, old records reviewed - History of Present Illness Initial comments: This is a 87-year-old female to the ER for evaluation. Patient's presented today for evaluation of possible UTI, severe weakness, not feeling well. Family noticed symptoms 2 days. Patient is a long complex medical history, multiple history of recurrent UTIs. She started new medication yesterday, was just off her last UTI about a week and a half ago. Patient herself denies any fevers as well as not feeling well, feels sick, occasionally lightheaded and dizziness but denies chest pain shortness of breath or abdominal pain, no nausea vomiting or diarrhea - Related Data Home Medications Medication Instructions Recorded Confirmed Garlic 1 tab PO DAILY 01/14/14 11/13/17 Glucosamine-Chondr 500-400Mg 1 tab PO DAILY 01/14/14 11/13/17 Multivitamin/Iron/Folic Acid 1 tab PO HS 01/14/14 11/13/17 [Centrum Complete Multivit Tab] Donepezil HCl [Aricept] 10 mg PO BID 07/21/15 11/13/17 Memantine [Namenda] 5 mg PO BID 07/21/15 11/13/17 Pravastatin Sodium [Pravachol] 10 mg PO DAILY 07/21/15 11/13/17 Acetaminophen Tab [Tylenol] 1,000 mg PO HS 05/07/16 11/13/17 Rivaroxaban [Xarelto] 20 mg PO DAILY 05/07/16 11/13/17 Melatonin 10 mg PO HS 04/10/17 11/13/17 Thiamine [Vitamin B-1] 100 mg PO DAILY 04/10/17 11/13/17 amLODIPine [Norvasc] 10 mg PO DAILY 04/10/17 11/13/17 Previous Rx's Medication Instructions Recorded Hydrocodone/Acetaminophen [[place] 1 tab PO Q6HR PRN #20 tab 04/10/17 5-325] Doxycycline Monohydrate 100 mg PO BID 4 Days #8 capsule 10/13/17 [Vibramycin] Allergies Allergy/AdvReac Type Severity Reaction Status Date / Time Sulfa (Sulfonamide Allergy Unknown Verified 11/22/17 11:50 Antibiotics) Review of Systems ROS Statement: Those systems with pertinent positive or pertinent negative responses have been documented in the HPI. ROS Other: All systems not noted in ROS Statement are negative. Past Medical History Past Medical History: Atrial Fibrillation, COPD, CVA/TIA, Dementia, GERD/Reflux , Hyperlipidemia, Hypertension, Osteoarthritis (OA), Pneumonia, Thyroid Disorder Additional Past Medical History / Comment(s): weakness. dementiaHX: CVA's and TIA's, tracheobronchitis, RLL NODULE-, pelvic fracture, DJD, osteoporosis, , hemorrhoids, History of Any Multi-Drug Resistant Organisms: None Reported Past Surgical History: Appendectomy, Cholecystectomy, Hysterectomy, Joint Replacement Additional Past Surgical History / Comment(s): Bilateral EYE CATARACT SX, bladder suspension, colonoscopy, skin cancer removals. left hip replacement Past Anesthesia/Blood Transfusion Reactions: No Reported Reaction Past Psychological History: No Psychological Hx Reported Smoking Status: Never smoker Past Alcohol Use History: None Reported Past Drug Use History: None Reported - Past Family History Sister(s) Family Medical History: Cancer Additional Family Medical History / Comment(s): colon CA Father Family Medical History: Unable to Obtain Additional Family Medical History / Comment(s): AT AGE 70 HX UNK Mother Family Medical History: Cancer Additional Family Medical History / Comment(s): AGE 55 BREAST CA General Exam General appearance: alert, in no apparent distress Head exam: Present: atraumatic, normocephalic, normal inspection Eye exam: Present: normal appearance, PERRL, EOMI. Absent: scleral icterus, conjunctival injection, periorbital swelling ENT exam: Present: normal exam, mucous membranes moist Neck exam: Present: normal inspection. Absent: tenderness, meningismus, lymphadenopathy Respiratory exam: Present: normal lung sounds bilaterally. Absent: respiratory distress, wheezes, rales, rhonchi, stridor Cardiovascular Exam: Present: regular rate, normal rhythm, normal heart sounds. Absent: systolic murmur, diastolic murmur, rubs, gallop, clicks GI/Abdominal exam: Present: soft, normal bowel sounds. Absent: distended, tenderness, guarding, rebound, rigid Extremities exam: Present: normal inspection, full ROM, normal capillary refill. Absent: tenderness, pedal edema, joint swelling, calf tenderness Back exam: Present: normal inspection Neurological exam: Present: alert, oriented X3, CN II-XII intact Psychiatric exam: Present: normal affect, normal mood Skin exam: Present: warm, dry, intact, normal color. Absent: rash Course Vital Signs 11/22/17 11/22/17 11:48 13:43 Temperature 98.0 F Pulse Rate 82 69 Respiratory 20 18 Rate Blood Pressure 133/58 125/56 O2 Sat by Pulse 95 99 Oximetry - Reevaluation(s) Reevaluation #1: 11/22/17 13:47 She does feel better with fluid hydration Reevaluation #2: 11/22/17 14:19 Medical records thoroughly reviewed EKG Findings - EKG Comments: EKG Findings:: EKG shows sinus rhythm rate of 65, [place] 160, QRS 90, QTc 492 Medical Decision Making - Medical Decision Making 87 female the ER with recurrent urinary tract infection we'll place an IV antibiotics and have urine culture, no improvement despite outpatient medication currently. - Lab Data Result diagrams: 11/22/17 13:15 Lab Results 11/22/17 11/22/17 Range/Units 13:15 13:51 WBC 6.5 (3.8-10.6) k/uL RBC 4.59 (3.80-5.40) m/uL Hgb 14.0 (11.4-16.0) gm/dL Hct 41.6 (34.0-46.0) % MCV 90.6 (80.0-100.0) fL MCH 30.5 (25.0-35.0) pg MCHC 33.6 (31.0-37.0) g/dL RDW 14.2 (11.5-15.5) % Plt Count 234 (150-450) k/uL Neutrophils % 67 % Lymphocytes % 19 % Monocytes % 9 % Eosinophils % 1 % Basophils % 0 % Neutrophils # 4.4 (1.3-7.7) k/uL Lymphocytes # 1.3 (1.0-4.8) k/uL Monocytes # 0.6 (0-1.0) k/uL Eosinophils # 0.1 (0-0.7) k/uL Basophils # 0.0 (0-0.2) k/uL Urine Color Yellow Urine Appearance Turbid H (Clear) Urine pH 6.5 (5.0-8.0) Ur Specific [place] 1.017 (1.001-1.035) Urine Protein 1+ H (Negative) Urine Glucose (UA) Negative (Negative) Urine Ketones Negative (Negative) Urine Blood Large H (Negative) Urine Nitrite Positive H (Negative) Urine Bilirubin Negative (Negative) Urine Urobilinogen <2.0 (<2.0) mg/dL Ur Leukocyte Esterase Large H (Negative) Urine RBC 109 H (0-5) /hpf Urine WBC >182 H (0-5) /hpf Urine WBC Clumps Many H (None) /hpf Ur Squamous Epith Cells 5 H (0-4) /hpf Urine Bacteria Many H (None) /hpf Urine Mucus Many H (None) /hpf Disposition Clinical Impression: Urinary tract infection, Weakness, Failure of outpatient treatment Disposition: ADMITTED IP TO THIS HOSP Condition: Fair Is patient prescribed a controlled substance at d/c from ED?: No Referrals: Liliana Gan MD [Primary Care Provider] - 1-2 days
[2017-11-22] MEDS ORDERED: SODIUM CHLORIDE 0.9% 1,000 ML IV STA ×2 (12:00)
[2017-11-22] MEDS ORDERED: PIPERACILLIN-TAZOBACTAM 3.375 GM in DEXTROSE/WATER 1 50ML.BAG IVPB STA (12:00)
[2017-11-22 13:30] LABS: Basophils % (A) 0 %; Eosinophils # (A) 0.1 k/uL (0-0.7); Eosinophils % (A) 1 %; HCT 41.6 % (34.0-46.0); Lymphocytes # (A) 1.3 k/uL (1.0-4.8); Lymphocytes % (A) 19 %; MCH 30.5 pg (25.0-35.0); MCHC 33.6 g/dL (31.0-37.0); MCV 90.6 fL (80.0-100.0); Mean Platelet Volume 7.3; Monocytes # (A) 0.6 k/uL (0-1.0); Monocytes % (A) 9 %; Neutrophils # (A) 4.4 k/uL (1.3-7.7); Neutrophils % (A) 67 %; Platelet Count 234 k/uL (150-450); RBC 4.59 m/uL (3.80-5.40); RDW 14.2 % (11.5-15.5); WBC 6.5 k/uL (3.8-10.6)
[2017-11-22 14:11] LABS: Appearance,Urine Turbid (Clear); Bacteria,Urine Many /hpf; Bilirubin,Urine Negative (Negative); Blood,Urine Large (Negative); Color,Urine Yellow; Glucose,Urine (UA) Negative (Negative); Ketones,Urine Negative (Negative); Leukocyte Esterase,Urine Large (Negative); Mucus,Urine Many /hpf; Nitrite,Urine Positive (Negative); PH, Urine 6.5 (5.0-8.0); Protein,Urine 1+ (Negative); RBC,Urine 109 /hpf (0-5); Specific Gravity,Urine 1.017 (1.001-1.035); Squamous Epithelial Cell,Urine 5 /hpf (0-4); Urobilinogen,Urine <2.0 mg/dL (<2.0); WBC,Urine >182 /hpf (0-5)
[2017-11-22 15:12] LABS: INR 1.3 (<1.2); Partial Thromboplastin Time 28.8 sec (22.0-30.0); Prothrombin Time 12.3 sec (9.0-12.0)
[2017-11-22 15:22] LABS: Calcium 8.3 mg/dL (8.4-10.2); Magnesium 2.2 mg/dL (1.6-2.3); Phosphorus 3.2 mg/dL (2.5-4.5); Total Bilirubin 0.9 mg/dL (0.2-1.3); Total Protein 7.4 g/dL (6.3-8.2)
[2017-11-22 15:23] LABS: Potassium 4.6 mmol/L (3.5-5.1)
[2017-11-22 15:28] LABS: Creatine Kinase 415 U/L (30-135)
[2017-11-22 15:41] LABS: Troponin I <0.012 ng/mL (0.000-0.034)
[2017-11-22 15:55] LABS: Creatine Kinase MB 2.7 ng/mL (0.0-2.4)
[2017-11-22 18:12] VITALS: BMI 27.4
[2017-11-22] MEDS ORDERED: ACETAMINOPHEN TAB 500 MG TAB PO PRN (18:31)
--- NOTE | 2017-11-22 18:36 | P.HPIM ---
History of Present Illness This is a pleasant 87 years old female past medical history of CVA, dementia, history of relation, GERD, hyperlipidemia, hypertension, recurrent UTI, fall at home. She presents because she was not feeling well compared by her daughter. Patient is poor historian, she has dysarthria probably from old stroke however she casts answers with yes and no. Patient states she has dysuria but not increased frequency. She is not in pain for example no abdominal pain. No nausea vomiting. No chest pain or dyspnea. She was recently treated for UTI and failed outpatient treatment , emergency room highly suspicious for infection with large leukocyte esterase and urine will WBC more than 182. Also patient with pressure ulcers on the right ankle Review of Systems CONSTITUTIONAL: No fever, no malaise, no fatigue. HEENT: No recent visual problems or hearing problems. Denied any sore throat. CARDIOVASCULAR: No orthopnea, PND, no palpitations, no syncope. PULMONARY: No shortness of breath, no cough, no hemoptysis. GASTROINTESTINAL: No diarrhea, no nausea, no vomiting, no abdominal pain. Normoactive bowel sounds. NEUROLOGICAL: No headaches, no weakness, no numbness. HEMATOLOGICAL: Denies any bleeding or petechiae. GENITOURINARY: Denies any burning micturition, frequency, or urgency. MUSCULOSKELETAL/RHEUMATOLOGICAL: Denies any joint pain, swelling, or any muscle pain. ENDOCRINE: Denies any polyuria or polydipsia. Past Medical History Past Medical History: Atrial Fibrillation, CVA/TIA, Dementia, GERD/Reflux, Hyperlipidemia, Hypertension, Osteoarthritis (OA), Pneumonia Additional Past Medical History / Comment(s): CVA's and TIA's, tracheobronchitis, RLL NODULE, pelvic fracture, DJD, osteoporosis, , hemorrhoids , recent fall at home, R heel ulcer-receiving weekly dressing changes at wound center History of Any Multi-Drug Resistant Organisms: None Reported Past Surgical History: Appendectomy, Cholecystectomy, Hysterectomy, Joint Replacement Additional Past Surgical History / Comment(s): Bilateral EYE CATARACT SX, bladder suspension, colonoscopy, skin cancer removals. left hip replacement Past Anesthesia/Blood Transfusion Reactions: No Reported Reaction Past Psychological History: No Psychological Hx Reported Smoking Status: Never smoker Past Alcohol Use History: None Reported Past Drug Use History: None Reported - Past Family History Sister(s) Family Medical History: Cancer Additional Family Medical History / Comment(s): colon CA Father Family Medical History: Unable to Obtain Additional Family Medical History / Comment(s): AT AGE 70 HX UNK Mother Family Medical History: Cancer Additional Family Medical History / Comment(s): AGE 55 BREAST CA Medications and Allergies Home Medications Medication Instructions Recorded Confirmed Type Garlic 1 tab PO DAILY 01/14/14 11/22/17 History Glucosamine-Chondr 500-400Mg 1 tab PO DAILY 01/14/14 11/22/17 History Multivitamin/Iron/Folic Acid 1 tab PO HS 01/14/14 11/22/17 History [Centrum Complete Multivit Tab] Donepezil HCl [Aricept] 10 mg PO BID 07/21/15 11/22/17 History Memantine [Namenda] 5 mg PO BID 07/21/15 11/22/17 History Pravastatin Sodium [Pravachol] 10 mg PO DAILY 07/21/15 11/22/17 History Acetaminophen Tab [Tylenol] 1,000 mg PO HS 05/07/16 11/22/17 History Rivaroxaban [Xarelto] 20 mg PO DAILY 05/07/16 11/22/17 History Melatonin 10 mg PO HS 04/10/17 11/22/17 History amLODIPine [Norvasc] 10 mg PO DAILY 04/10/17 11/22/17 History Allergies Allergy/AdvReac Type Severity Reaction Status Date / Time Sulfa (Sulfonamide Allergy Unknown Verified 11/22/17 15:40 Antibiotics) Physical Exam Vitals: Vital Signs Temp Pulse Resp BP Pulse Ox 11/22/17 17:20 98.9 F 79 18 94 L 11/22/17 16:46 72 18 112/66 94 L 11/22/17 14:44 65 18 107/77 95 11/22/17 13:43 69 18 125/56 99 11/22/17 11:48 98.0 F 82 20 133/58 95 Intake and Output 11/22/17 11/22/17 11/22/17 06:59 14:59 22:59 Other: Weight 72.575 kg 72.575 kg GENERAL: The patient is alert and awake, not in any acute distress. Well developed, HEENT: Pupils are round and equally reacting to light. EOMI. No scleral icterus. No conjunctival pallor. Normocephalic, atraumatic. No pharyngeal erythema. -No thyromegaly. Has dysarthria CARDIOVASCULAR: S1 and S2 present. No murmurs, rubs, or gallops. PULMONARY: Chest is clear to auscultation, no wheezing or crackles. ABDOMEN: Soft, nontender, nondistended, normoactive bowel sounds. No palpable organomegaly. MUSCULOSKELETAL: No joint swelling or deformity. EXTREMITIES: No cyanosis, clubbing, or pedal edema. NEUROLOGICAL: Gross neurological examination did not reveal any focal deficits. SKIN: No rashes. Results CBC & Chem 7: 11/22/17 13:15 11/22/17 14:38 Labs: Abnormal Lab Results - Last 24 Hours (Table) 11/22/17 11/22/17 11/22/17 Range/Units 13:51 14:38 14:38 PT 12.3 H (9.0-12.0) sec INR 1.3 H (<1.2) Chloride (98-107) mmol/L Carbon Dioxide (22-30) mmol/L BUN (7-17) mg/dL Calcium (8.4-10.2) mg/dL AST (14-36) U/L Total Creatine Kinase 415 H (30-135) U/L CK-MB (CK-2) 2.7 H* (0.0-2.4) ng/mL Urine Appearance Turbid H (Clear) Urine Protein 1+ H (Negative) Urine Blood Large H (Negative) Urine Nitrite Positive H (Negative) Ur Leukocyte Esterase Large H (Negative) Urine RBC 109 H (0-5) /hpf Urine WBC >182 H (0-5) /hpf Urine WBC Clumps Many H (None) /hpf Ur Squamous Epith Cells 5 H (0-4) /hpf Urine Bacteria Many H (None) /hpf Urine Mucus Many H (None) /hpf 11/22/17 Range/Units 14:38 PT (9.0-12.0) sec INR (<1.2) Chloride 109 H (98-107) mmol/L Carbon Dioxide 20 L (22-30) mmol/L BUN 23 H (7-17) mg/dL Calcium 8.3 L (8.4-10.2) mg/dL AST 42 H (14-36) U/L Total Creatine Kinase (30-135) U/L CK-MB (CK-2) (0.0-2.4) ng/mL Urine Appearance (Clear) Urine Protein (Negative) Urine Blood (Negative) Urine Nitrite (Negative) Ur Leukocyte Esterase (Negative) Urine RBC (0-5) /hpf Urine WBC (0-5) /hpf Urine WBC Clumps (None) /hpf Ur Squamous Epith Cells (0-4) /hpf Urine Bacteria (None) /hpf Urine Mucus (None) /hpf Thrombosis Risk Factor Assmnt - Choose All That Apply Each Factor Represents 1 point: Swollen legs (current) Each Risk Factor Represents 2 Points: Patient confined to bed Each Risk Factor Represents 3 Points: Age 75 years or older Thrombosis Risk Factor Assessment Total Risk Factor Score: 6 Thrombosis Risk Factor Assessment Level: High Risk Assessment and Plan Plan: -UTI, failed outpatient treatment. Follow-up UC and BC. She was started on Zosyn react ID consults -Pressure ulcers on the right heel, she'll follow with the wound clinic. call ID consult -History of dementia, continue with supportive treatment -hypertension continue with same and treatment -History of chronic atrial fibrillation, and review of CVA/TIA, continue with xarelto Prophylaxis already on Xarelto GI prophylaxis on Pepcid Prognosis is guarded
[2017-11-22] MEDS: MELATONIN 5 MG TABLET PO SCH (20:23)
[2017-11-22] MEDS: DONEPEZIL 10 MG TAB PO SCH (20:23)
[2017-11-22] MEDS: MEMANTINE 5 MG TAB PO SCH (20:23)
[2017-11-22] MEDS: PIPERACILLIN-TAZOBACTAM 3.375 GM in DEXTROSE/WATER 1 50ML.BAG IVPB SCH (20:23)
[2017-11-22] MEDS: MULTIVITAMINS, THERA 1 EACH TAB PO SCH (20:24)
[2017-11-23] MEDS: PIPERACILLIN-TAZOBACTAM 3.375 GM in DEXTROSE/WATER 1 50ML.BAG IVPB SCH ×3 (05:14→20:16)
[2017-11-23] MEDS ORDERED: NON-FORMULARY DRUG (Garlic [Garlic] 1 TAB) PO SCH (09:00)
[2017-11-23] MEDS ORDERED: RIVAROXABAN 20 MG TAB PO SCH (09:00)
[2017-11-23] MEDS ORDERED: ENOXAPARIN 40 MG/0.4 ML SYRINGE SQ SCH (09:00)
[2017-11-23] MEDS ORDERED: GLUCOSAMINE CHONDR MSM PO SCH (09:00)
[2017-11-23 09:20] LABS: Basophils % (A) 0 %; Eosinophils # (A) 0.1 k/uL (0-0.7); Eosinophils % (A) 1 %; HCT 36.3 % (34.0-46.0); HGB 12.1 gm/dL (11.4-16.0); Lymphocytes # (A) 1.3 k/uL (1.0-4.8); Lymphocytes % (A) 26 %; MCH 30.8 pg (25.0-35.0); MCHC 33.4 g/dL (31.0-37.0); MCV 92.3 fL (80.0-100.0); Mean Platelet Volume 6.6; Monocytes # (A) 0.4 k/uL (0-1.0); Monocytes % (A) 7 %; Neutrophils # (A) 3.4 k/uL (1.3-7.7); Neutrophils % (A) 64 %; Platelet Count 193 k/uL (150-450); RBC 3.94 m/uL (3.80-5.40); RDW 14.4 % (11.5-15.5); WBC 5.2 k/uL (3.8-10.6)
[2017-11-23 09:39] LABS: Calcium 8.2 mg/dL (8.4-10.2); Potassium 3.8 mmol/L (3.5-5.1)
[2017-11-23] MEDS: DONEPEZIL 10 MG TAB PO SCH ×2 (10:09→20:16)
[2017-11-23] MEDS: amLODIPine 10 MG TAB PO SCH (10:09)
[2017-11-23] MEDS: MEMANTINE 5 MG TAB PO SCH ×2 (10:10→20:16)
[2017-11-23] MEDS: PRAVASTATIN SODIUM 20 MG TAB PO SCH (10:10)
--- NOTE | 2017-11-23 10:24 | P.OBCN ---
History of Present Illness Consult date: 11/23/17 Chief complaint: vaginal bleeding x2 days History of present illness: This is an 87-year-old white female 6 para 40-4 status post hysterectomy for benign conditions many years ago per Dr. Vernon. Patient has been admitted with a history of chronic UTI. She lives at home with her daughter Tika, who noticed a blood clot in the diaper. This was noted again in the emergency room and is felt to be vaginal in origin. FOUNDATION RELATIONS MANAGER consultation has been requested. Review of systems is otherwise negative, no fevers shakes or chills, no nausea vomiting. Patient is chronically incontinent of stool and bladder. Past medical history is significant for Alzheimer's disease, atrial fibrillation , history of strokes in the past, and hypertension. Past surgical history hysterectomy in the past for benign indications, cholecystectomy, left hip replacement, bilateral cataract surgery, bladder suspension. Current medications are multiple, I would refer the reader to the chart. Patient is notably on Xarelto for chronic atrial fibrillation ALLERGIES include sulfa to which reports swelling and shortness of breath. Social history patient's been single for many years, not sexually active, no history of alcohol or drug use. She lives at home with her 52-year-old daughter Tika. Obstetric history significant for 4 vaginal deliveries, 4 living children, 2 miscarriages not requiring D&C. Family history is negative for FOUNDATION RELATIONS MANAGER cancers, no history of breast cancer. On exam this is a pleasant elderly female, 5 foot 0 inches, 162 pounds, blood pressure 125/66, pulse 85, 93% O2 saturation, temperature 98.2. She is alert but not oriented, asking to go home. HEENT exam reveals reasonably good dentition, no thyromegaly, no cervical lymphadenopathy. Breasts are bilaterally symmetric to inspection with no skin dimpling, nipple discharge, axillary adenopathy, no discernible lesions or masses. The right nipple is inverted and has been for many years according to her daughter. The abdomen is soft, nontender no organosplenomegaly, active bowel sounds. Extremities revealed decreased peripheral pulses, the right heel is wrapped with a chronic sore for which patient has been receiving wound care. No other skin breakdown. On pelvic exam external genitalia is atrophic. The vaginal vault is short, no obvious vaginal masses, however there is a small blood clot noted in the vagina. No pelvic masses on exam. Rectal exam reveals abundant loose stool, stool sample sent to the lab for Hemoccult evaluation. No rectal masses are noted. Labs include hemoglobin 12.1, hematocrit 36.3, platelets 234,000, white count 6.5. Urinalysis reveals large blood, large esterase, positive nitrates consistent with UTI. Impression: Tonic UTI, now with vaginal bleeding, source uncertain. Patient is on Xarelto for atrial fibrillation. Plan: Patient is not anemic and has only scant vaginal bleeding, no obvious vaginal or pelvic masses. This may be due to atrophic changes. She is not anemic at this time. We'll discuss the case with admitting physician. Agree with antibiotic therapy at this time. Thank for the consultation. Review of Systems negative except in HPI Constitutional: Reports as per HPI Past Medical History Past Medical History: Atrial Fibrillation, CVA/TIA, Dementia, GERD/Reflux, Hyperlipidemia, Hypertension, Osteoarthritis (OA), Pneumonia Additional Past Medical History / Comment(s): CVA's and TIA's, tracheobronchitis, RLL NODULE, pelvic fracture, DJD, osteoporosis, , hemorrhoids , recent fall at home, R heel ulcer-receiving weekly dressing changes at wound center History of Any Multi-Drug Resistant Organisms: None Reported Past Surgical History: Appendectomy, Cholecystectomy, Hysterectomy, Joint Replacement Additional Past Surgical History / Comment(s): Bilateral EYE CATARACT SX, bladder suspension, colonoscopy, skin cancer removals. left hip replacement Past Anesthesia/Blood Transfusion Reactions: No Reported Reaction Past Psychological History: No Psychological Hx Reported Smoking Status: Never smoker Past Alcohol Use History: None Reported Past Drug Use History: None Reported - Past Family History Sister(s) Family Medical History: Cancer Additional Family Medical History / Comment(s): colon CA Father Family Medical History: Unable to Obtain Additional Family Medical History / Comment(s): AT AGE 70 HX UNK Mother Family Medical History: Cancer Additional Family Medical History / Comment(s): AGE 55 BREAST CA Medications and Allergies Home Medications Medication Instructions Recorded Confirmed Type Garlic 1 tab PO DAILY 01/14/14 11/22/17 History Glucosamine-Chondr 500-400Mg 1 tab PO DAILY 01/14/14 11/22/17 History Multivitamin/Iron/Folic Acid 1 tab PO HS 01/14/14 11/22/17 History [Centrum Complete Multivit Tab] Donepezil HCl [Aricept] 10 mg PO BID 07/21/15 11/22/17 History Memantine [Namenda] 5 mg PO BID 07/21/15 11/22/17 History Pravastatin Sodium [Pravachol] 10 mg PO DAILY 07/21/15 11/22/17 History Acetaminophen Tab [Tylenol] 1,000 mg PO HS 05/07/16 11/22/17 History Rivaroxaban [Xarelto] 20 mg PO DAILY 05/07/16 11/22/17 History Melatonin 10 mg PO HS 04/10/17 11/22/17 History amLODIPine [Norvasc] 10 mg PO DAILY 04/10/17 11/22/17 History Allergies Allergy/AdvReac Type Severity Reaction Status Date / Time Sulfa (Sulfonamide Allergy Unknown Verified 11/22/17 15:40 Antibiotics) Exam Vital Signs Temp Pulse Pulse Resp BP BP Pulse Ox 11/23/17 06:11 98.2 F 80 20 125/66 93 L 11/22/17 23:00 98.3 F 91 18 111/64 91 L 11/22/17 17:20 98.9 F 79 18 94 L 11/22/17 17:00 98.1 F 69 16 119/61 93 L 11/22/17 16:46 72 18 112/66 94 L 11/22/17 14:44 65 18 107/77 95 11/22/17 13:43 69 18 125/56 99 11/22/17 11:48 98.0 F 82 20 133/58 95 Intake and Output 11/22/17 11/23/17 11/23/17 22:59 06:59 14:59 Other: Voiding Method Diaper Incontinent # Voids 1 2 Weight 72.575 kg See dictation under HPI please Results Result Diagrams: 11/23/17 09:00 11/23/17 09:00 Abnormal Lab Results - Last 24 Hours (Table) 11/22/17 11/22/17 11/22/17 Range/Units 13:51 14:38 14:38 PT 12.3 H (9.0-12.0) sec INR 1.3 H (<1.2) Sodium (137-145) mmol/L Chloride (98-107) mmol/L Carbon Dioxide (22-30) mmol/L BUN (7-17) mg/dL Glucose (74-99) mg/dL Calcium (8.4-10.2) mg/dL AST (14-36) U/L Total Creatine Kinase 415 H (30-135) U/L CK-MB (CK-2) 2.7 H* (0.0-2.4) ng/mL Urine Appearance Turbid H (Clear) Urine Protein 1+ H (Negative) Urine Blood Large H (Negative) Urine Nitrite Positive H (Negative) Ur Leukocyte Esterase Large H (Negative) Urine RBC 109 H (0-5) /hpf Urine WBC >182 H (0-5) /hpf Urine WBC Clumps Many H (None) /hpf Ur Squamous Epith Cells 5 H (0-4) /hpf Urine Bacteria Many H (None) /hpf Urine Mucus Many H (None) /hpf 11/22/17 11/23/17 Range/Units 14:38 09:00 PT (9.0-12.0) sec INR (<1.2) Sodium 135 L (137-145) mmol/L Chloride 109 H (98-107) mmol/L Carbon Dioxide 20 L 21 L (22-30) mmol/L BUN 23 H (7-17) mg/dL Glucose 150 H (74-99) mg/dL Calcium 8.3 L 8.2 L (8.4-10.2) mg/dL AST 42 H (14-36) U/L Total Creatine Kinase (30-135) U/L CK-MB (CK-2) (0.0-2.4) ng/mL Urine Appearance (Clear) Urine Protein (Negative) Urine Blood (Negative) Urine Nitrite (Negative) Ur Leukocyte Esterase (Negative) Urine RBC (0-5) /hpf Urine WBC (0-5) /hpf Urine WBC Clumps (None) /hpf Ur Squamous Epith Cells (0-4) /hpf Urine Bacteria (None) /hpf Urine Mucus (None) /hpf Microbiology - Last 24 Hours (Table) 11/22/17 13:51 Urine Culture - Preliminary Urine,Catheterized Assessment and Plan Assessment: Vaginal bleeding, suspect due to vaginal atrophy. Patient on blood thinner for history of atrial fibrillation. Plan: We'll discuss with admitting physician. Good perineal hygiene. Consider vaginal estrogen for chronic vaginal atrophy. Will follow Time with Patient: Greater than 30
--- NOTE | 2017-11-23 15:01 | CONS ---
CONSULTATION ATTENDING DOCTOR: Dr. Gan Mrs. Del Cid is an 87-year-old female with known history off his multiple strokes, history off paroxysmal atrial fibrillation, who presented with urinary tract infection. She had some vaginal bleed and consultation was requested to further evaluate at the need for anticoagulation. The patient has a history of dementia, but she ambulates at home. Recently has been having quite progressive fatigue and lack of energy and was noted to have urinary tract infection. She also had a pressure ulcer on the right ankle. The history is obtained from the daughter. According to the daughter, she has a history of paroxysmal atrial fibrillation, multiple strokes, but no history of other cardiac disease. She has no history of dyspnea on exertion. No dizziness. No palpitation. No syncope. No PND, orthopnea. No peripheral edema. MEDICATION: Her medications at home included Aricept, Namenda, multivitamin, pravastatin 10 mg daily, Xarelto 20 mg daily, and amlodipine 10 mg daily. REVIEW OF SYSTEMS: RESPIRATORY SYSTEM: No recent wheezing. No cough. GI SYSTEM: No recent GI bleeding. No peptic ulcer disease. She has a history of hemorrhoids. SYSTEM: She had vaginal bleeding as noted, and was seen by Dr. Sharif, and there was no significant abnormality. NERVOUS SYSTEM: She has multiple stroke in the past and history of dementia. PHYSICAL EXAMINATION: 87-year-old female, alert, confused, in no apparent distress. Blood pressure 125/60 with a heart rate in the 80s. HEAD: Normocephalic. EYES: Sclerae anicteric. NECK: Good upstroke, no bruit. LUNGS: Clear to auscultation. HEART: Regular rate and rhythm. S1, S2. No S3 with systolic murmur at the base, ejection type. No diastolic murmur. No rub. ABDOMEN: Soft, nontender. Positive bowel sounds. No organomegaly. EXTREMITIES: Dressing in place. No significant edema. LAB DATA: BUN and creatinine 16 and 0.7, potassium 3.8, hemoglobin 12.1. Troponin less than 0.012. EKG revealed sinus mechanism with a normal axis and intervals. No acute changes. IMPRESSION: 1. Urinary tract infection with change in mental status. 2. History of paroxysmal atrial fibrillation. Patient has been maintained in sinus mechanism, but she had multiple strokes in the past. 3. Vaginal bleeding stable with normal hemoglobin. 4. History of dementia. RECOMMENDATION: I have discussed the finding with the daughter. At this time in view of the absence of active bleeding and recurrent episode of stroke in the past and the paroxysmal atrial fibrillation, I will re-initiate treatment with the dose of Xarelto 15 mg daily and depending on her progress, further recommendation will be made. We will see on as needed basis. Please feel free to call us for any questions. Thank you again for this consult. CONNOR / IJN: [id number] /
[2017-11-23] MEDS: RIVAROXABAN 15 MG TAB PO SCH (17:12)
[2017-11-23] MEDS: MULTIVITAMINS, THERA 1 EACH TAB PO SCH (20:16)
[2017-11-23] MEDS: MELATONIN 5 MG TABLET PO SCH (20:16)
--- NOTE | 2017-11-23 21:32 | P.PN ---
Subjective This is a pleasant 87 years old female past medical history of CVA, dementia, history of relation, GERD, hyperlipidemia, hypertension, recurrent UTI, fall at home. She presents because she was not feeling well compared by her daughter. Patient is poor historian, she has dysarthria probably from old stroke however she casts answers with yes and no. Patient states she has dysuria but not increased frequency. She is not in pain for example no abdominal pain. No nausea vomiting. No chest pain or dyspnea. She was recently treated for UTI and failed outpatient treatment , [facility] emergency room highly suspicious for infection with large leukocyte esterase and urine will WBC more than 182. Also patient with pressure ulcers on the right ankle 11/23/2017 pt is resting calm in bed , not in distress, no leukocytosis , no fever , still on abx , no resp distress, cardiology and Library Consultant consult is noted ,case was discussed with GRAIN SACKER attending , possible fistula with Urinary bladder vs vaginal atrophy , hemoglobin is stable and I agree with cardiology recommendation to c/ w xarelto for now as benefits more than risks in view of her h/o atrial fibrillation and stroke Objective - Vital Signs Vital signs: Vital Signs Temp 98.4 F 11/23/17 14:33 Pulse 77 11/23/17 14:33 Resp 16 11/23/17 14:33 BP 101/57 11/23/17 14:33 Pulse Ox 91 L 11/23/17 14:33 Intake & Output 11/23/17 11/23/17 11/24/17 06:59 18:59 06:59 Other: Voiding Method Diaper Diaper Incontinent Incontinent # Voids 2 3 # Bowel Movements 1 - Exam GENERAL: The patient is alert and awake, not in any acute distress. Well developed, HEENT: Pupils are round and equally reacting to light. EOMI. No scleral icterus. No conjunctival pallor. Normocephalic, atraumatic. No pharyngeal erythema. -No thyromegaly. Has dysarthria CARDIOVASCULAR: S1 and S2 present. No murmurs, rubs, or gallops. PULMONARY: Chest is clear to auscultation, no wheezing or crackles. ABDOMEN: Soft, nontender, nondistended, normoactive bowel sounds. No palpable organomegaly. MUSCULOSKELETAL: No joint swelling or deformity. EXTREMITIES: No cyanosis, clubbing, or pedal edema. NEUROLOGICAL: Gross neurological examination did not reveal any focal deficits. SKIN: No rashes. - Labs CBC & Chem 7: 11/23/17 09:00 11/23/17 09:00 Labs: Abnormal Lab Results - Last 24 Hours (Table) 11/23/17 Range/Units 09:00 Sodium 135 L (137-145) mmol/L Carbon Dioxide 21 L (22-30) mmol/L Glucose 150 H (74-99) mg/dL Calcium 8.2 L (8.4-10.2) mg/dL Microbiology - Last 24 Hours (Table) 11/22/17 13:51 Urine Culture - Preliminary Urine,Catheterized Presumptive Staph aureus Assessment and Plan Plan: -UTI, failed outpatient treatment. Follow-up UC and BC. She was started on Zosyn react ID consults -Pressure ulcers on the right heel, she'll follow with the wound clinic. call ID consult -History of dementia, continue with supportive treatment -hypertension continue with same and treatment -History of chronic atrial fibrillation, and review of CVA/TIA, continue with xarelto , cardiology input is appreciated -mild vx bleeding , h/o hysterectomy for benign reason, GRAIN SACKER consult is appreciated, pt has small clot at the vault of the apex , possible fistula vaginal atrophy , continue with conservative Mx currently Prophylaxis already on Xarelto GI prophylaxis on Pepcid Prognosis is guarded
--- NOTE | 2017-11-23 22:34 | CONS ---
CONSULTATION DATE OF SERVICE: 11/23/2017. REASON FOR CONSULTATION: 1. Urinary tract infection. 2. Right heel wound. HISTORY OF PRESENT ILLNESS: The patient is an 87 -year-old female with past medical history significant for urinary tract infection in a patient apparently recently finished a course of oral Cipro. However, the patient seemed to be getting weak and lethargic and not herself which is usually her symptoms suggestive of a urinary tract infection. The patient's daughter says she called her primary care physician who did send in a prescription of oral Cipro which the patient has taken for about a day. However, the patient did not have any improvement with persistent worsening of her symptoms. She was brought to the [facility] ER for further evaluation. On arrival to the ER, the patient has been afebrile. White count has been normal. The patient's urine was positive with large leukocyte esterase, more than 1-2 WBC with many bacteria with concern for a urinary tract infection. The patient has been admitted to the hospital. She was started on Zosyn. Infectious disease was consulted for further recommendations regarding antibiotic therapy. The patient also has a wound to the right heel area for a couple of months now and being treated at [facility] [place] by Samia nurse practitioner. dressing has been Hydrofera Blue dressing which the patient's daughter has been changing herself, last changed this morning. Most of the information has been obtained from prior review of the chart and talking to nursing staff. The patient currently is slightly lethargic and unable to provide reliable history. REVIEW OF SYSTEMS: Could not be reliably obtained. The positive points have been mentioned in HPI. 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 PAST SURGICAL HISTORY: Appendectomy, cholecystectomy, hysterectomy, bladder surgery, colonoscopy, skin cancer removal, left hip replacement. SOCIAL HISTORY: No history of smoking, drinking or drug use. FAMILY HISTORY: Sister with a history of colon cancer, father age of 70 with unknown causes. Mother history of breast cancer. ALLERGIES: SULFA. MEDICATIONS: Include the patient is currently on Tylenol, Norvasc, Aricept, melatonin, Namenda, Theragran, Zosyn, Pravachol, Xarelto. EXAMINATION: Blood pressure 101/57 with a pulse of 77, temperature 98.4. She is 91% on room air. General description is an elderly female, lying in bed in no distress. No tachypnea or accessory muscles of respiration use. HEENT: Shows no pallor or scleral icterus. Oral mucosa membranes are dry. No pharyngeal erythema or thrush. Neck trachea central. No thyromegaly. Lungs unlabored breathing, clear to auscultation anteriorly. No wheeze or crackles. Heart S1, S2. Regular rate and rhythm. ABDOMEN: Soft, no tenderness. No guarding or rigidity. Extremities: No edema of the feet. Skin examination: No rash or mass palpable. Neurological: The patient is lethargic but is arousable. No neck rigidity. LABS: Hemoglobin 12.9, white count 5.2, BUN of 16, creatinine 0.70. Electrolytes have been normal. Liver enzymes are normal. Urine has been positive. Stool for occult blood was negative. DIAGNOSTIC IMPRESSION AND PLAN: 1. Patient admitted to the hospital with generalized weakness and lethargy with significantly positive UA in a patient who did have a history of recurrent urinary tract infection and has been treated with outpatient Cipro recently with concern for possible resistant gram-negative with likely source of this urinary tract infection with no evidence of any yeast in the UA sample. 2. Patient with right heel pressure ulcer in the healing stages with no evidence of any cellulitis. PLAN: 1. The patient will be kept on Zosyn 3.375 g q.8h with concern for possible infection while waiting for the culture to finalize. 2. Local wound care to the right heel. Continue however, we will add heel protectors to bilateral heels to prevent any further worsening of this area. 3. Depending upon the clinical response as well as cultures to adjust the medication further if needed. Thank you for this consultation. We will follow this patient along with you. MMODL / IJN: [id number] /
[2017-11-24] MEDS: PIPERACILLIN-TAZOBACTAM 3.375 GM in DEXTROSE/WATER 1 50ML.BAG IVPB SCH ×2 (03:21→12:42)
[2017-11-24 08:17] LABS: Anion Gap 8 mmol/L; Basophils % (A) 0 %; Blood Urea Nitrogen 10 mg/dL (7-17); Calcium 8.7 mg/dL (8.4-10.2); Carbon Dioxide 26 mmol/L (22-30); Chloride 104 mmol/L (98-107); Eosinophils # (A) 0.1 k/uL (0-0.7); Eosinophils % (A) 2 %; Glucose 109 mg/dL (74-99); HCT 39.4 % (34.0-46.0); HGB 13.1 gm/dL (11.4-16.0); Lymphocytes # (A) 1.4 k/uL (1.0-4.8); Lymphocytes % (A) 26 %; MCH 30.2 pg (25.0-35.0); MCHC 33.3 g/dL (31.0-37.0); MCV 90.5 fL (80.0-100.0); Mean Platelet Volume 6.4; Monocytes # (A) 0.4 k/uL (0-1.0); Monocytes % (A) 8 %; Neutrophils % (A) 59 %; Platelet Count 225 k/uL (150-450); Potassium 3.8 mmol/L (3.5-5.1); RBC 4.35 m/uL (3.80-5.40); RDW 14.1 % (11.5-15.5); Sodium 138 mmol/L (137-145); WBC 5.1 k/uL (3.8-10.6)
--- NOTE | 2017-11-24 08:17 | P.PN ---
Subjective Progress Note Date: 11/24/17 Principal diagnosis: post menopausal vaginal bleeding bleeding scant, unchanged Objective - Vital Signs Vital signs: Vital Signs Temp 97.9 F 11/24/17 06:37 Pulse 84 11/24/17 06:37 Resp 18 11/24/17 06:37 BP 129/75 11/24/17 06:37 Pulse Ox 94 L 11/24/17 06:37 Intake & Output 11/23/17 11/24/17 11/24/17 18:59 06:59 18:59 Intake Total 400 Balance 400 Weight 72.575 kg Intake: Oral 400 Other: Voiding Method Diaper Diaper Incontinent Incontinent # Voids 3 7 # Bowel Movements 1 - Constitutional General appearance: Present: average body habitus, cooperative - Gastrointestinal Gastrointestinal Comment(s): incontinent of bladder, bowels General gastrointestinal: Present: normal bowel sounds - Psychiatric Psychiatric Comment(s): confused, mentation c/w altzeimers disease - Labs CBC & Chem 7: 11/23/17 09:00 11/23/17 09:00 Labs: Abnormal Lab Results - Last 24 Hours (Table) 11/23/17 Range/Units 09:00 Sodium 135 L (137-145) mmol/L Carbon Dioxide 21 L (22-30) mmol/L Glucose 150 H (74-99) mg/dL Calcium 8.2 L (8.4-10.2) mg/dL Microbiology - Last 24 Hours (Table) 11/22/17 13:51 Urine Culture - Preliminary Urine,Catheterized Presumptive Staph aureus Assessment and Plan Assessment: post menopausal bleeding s/p hysterectomy, on xarelto for atrial fibrillation Plan: Will begin vagifem 10 mcg intravaginally for 14 days in an attempt to strengthen /heal vaginal atrophic changes. D/W pt's daughter, Tika, dry starch supervisor at home. Time with Patient: Less than 30
[2017-11-24] MEDS: MEMANTINE 5 MG TAB PO SCH ×2 (08:27→21:15)
[2017-11-24] MEDS: DONEPEZIL 10 MG TAB PO SCH ×2 (08:27→21:15)
[2017-11-24] MEDS: MULTIVITAMINS, THERA 1 EACH TAB PO SCH (08:27)
[2017-11-24] MEDS: PRAVASTATIN SODIUM 20 MG TAB PO SCH (08:27)
[2017-11-24] MEDS: amLODIPine 10 MG TAB PO SCH (08:27)
--- NOTE | 2017-11-24 12:04 | P.PN ---
Subjective This is a pleasant 87 years old female past medical history of CVA, dementia, history of relation, GERD, hyperlipidemia, hypertension, recurrent UTI, fall at home. She presents because she was not feeling well compared by her daughter. Patient is poor historian, she has dysarthria probably from old stroke however she casts answers with yes and no. Patient states she has dysuria but not increased frequency. She is not in pain for example no abdominal pain. No nausea vomiting. No chest pain or dyspnea. She was recently treated for UTI and failed outpatient treatment , UA emergency room highly suspicious for infection with large leukocyte esterase and urine will WBC more than 182. Also patient with pressure ulcers on the right ankle 11/23/2017 pt is resting calm in bed , not in distress, no leukocytosis , no fever , still on abx , no resp distress, cardiology and Forestry Adviser consult is noted ,case was discussed with EXERCISER attending , possible fistula with Urinary bladder vs vaginal atrophy , hemoglobin is stable and I agree with cardiology recommendation to c/ w xarelto for now as benefits more than risks in view of her h/o atrial fibrillation and stroke Objective - Vital Signs Vital signs: Vital Signs Temp 97.9 F 11/24/17 06:37 Pulse 84 11/24/17 06:37 Resp 18 11/24/17 06:37 BP 129/75 11/24/17 06:37 Pulse Ox 94 L 11/24/17 06:37 Intake & Output 11/23/17 11/24/17 11/24/17 18:59 06:59 18:59 Intake Total 400 Balance 400 Weight 72.575 kg Intake: Oral 400 Other: Voiding Method Diaper Diaper Diaper Incontinent Incontinent # Voids 3 7 # Bowel Movements 1 - Exam GENERAL: The patient is alert and awake, not in any acute distress. Well developed, HEENT: Pupils are round and equally reacting to light. EOMI. No scleral icterus. No conjunctival pallor. Normocephalic, atraumatic. No pharyngeal erythema. -No thyromegaly. Has dysarthria CARDIOVASCULAR: S1 and S2 present. No murmurs, rubs, or gallops. PULMONARY: Chest is clear to auscultation, no wheezing or crackles. ABDOMEN: Soft, nontender, nondistended, normoactive bowel sounds. No palpable organomegaly. MUSCULOSKELETAL: No joint swelling or deformity. EXTREMITIES: No cyanosis, clubbing, or pedal edema. NEUROLOGICAL: Gross neurological examination did not reveal any focal deficits. SKIN: No rashes. - Labs CBC & Chem 7: 11/24/17 07:11 11/24/17 07:11 Labs: Abnormal Lab Results - Last 24 Hours (Table) 11/24/17 Range/Units 07:11 Glucose 109 H (74-99) mg/dL Microbiology - Last 24 Hours (Table) 11/22/17 13:51 Urine Culture - Preliminary Urine,Catheterized Presumptive Staph aureus Assessment and Plan Plan: -UTI, failed outpatient treatment. Follow-up UC: staff and BC: No gross. She was started on Zosyn react ID consults -Pressure ulcers on the right heel, she'll follow with the wound clinic. call ID consult -History of dementia, continue with supportive treatment -hypertension continue with same and treatment -History of chronic atrial fibrillation, and review of CVA/TIA, continue with xarelto , cardiology input is appreciated -mild vx bleeding , h/o hysterectomy for benign reason, EXERCISER consult is appreciated, pt has small clot at the vault of the apex , possible fistula versus vaginal atrophy , continue with conservative Mx currently. Patient was started on 14 days of intravaginal Vagifem 10 g Prophylaxis already on Xarelto GI prophylaxis on Pepcid Prognosis is guarded
[2017-11-24] MEDS ORDERED: VANCOMYCIN IV PER PHARMACY 1 EACH MISC MISCELLANE PRN (14:02)
[2017-11-24] MEDS ORDERED: VANCOMYCIN 1,250 MG in SODIUM CHLORIDE 0.9% 250 ML IVPB ONE (14:30)
[2017-11-24 15:23] LABS: ALT 38 U/L (9-52); AST 29 U/L (14-36)
--- NOTE | 2017-11-24 17:14 | PN ---
PROGRESS NOTE DATE OF SERVICE: 11/24/2017. REASON FOR FOLLOWUP: 1. Urinary tract infection. 2. Right heel wound. INTERVAL HISTORY: The patient is afebrile. She has been more awake and alert today. She is breathing comfortably. No chest pain. No nausea or vomiting. No abdominal pain. No diarrhea reported. EXAMINATION: Blood pressure 98/56 with a pulse of 81, temperature 97.8. She is 96% on room air. General description is an elderly female, lying in bed in no distress. RESPIRATORY SYSTEM: Unlabored breathing. Clear to auscultation anteriorly. HEART: S1, S2. Regular rate and rhythm. ABDOMEN: Soft, no tenderness. Right heel wound is currently dressed up. No obvious drainage on the dressing. LABS: Hemoglobin 13.1, white count 5.1, BUN of 10, creatinine 0.64. Urine showing Staph aureus. DIAGNOSTIC IMPRESSION AND PLAN: Patient with urinary tract infection with urine now showing Staph aureus. Vancomycin will be added. Discontinue the Zosyn. Adjustment antibiotics further based on the culture report. Continue supportive care. MMODL / IJN: [id number] /
[2017-11-24] MEDS: RIVAROXABAN 15 MG TAB PO SCH (18:23)
[2017-11-24] MEDS: MELATONIN 5 MG TABLET PO SCH (21:15)
[2017-11-24] MEDS: ESTRADIOL 0.1 MG/GM VAGINAL CREAM 42.5 GM TUBE VAGINAL SCH (21:15)
[2017-11-25] MEDS: VANCOMYCIN 1,250 MG in SODIUM CHLORIDE 0.9% 250 ML IVPB SCH ×2 (06:48→22:34)
--- NOTE | 2017-11-25 08:06 | P.PN ---
Subjective Progress Note Date: 11/25/17 Principal diagnosis: Chronic urinary tract infection, Alzheimer's disease with dementia, atrial fibrillation. Scant vaginal bleeding through the night. Objective - Vital Signs Vital signs: Vital Signs Temp 97.7 F 11/25/17 06:00 Pulse 72 11/25/17 06:00 Resp 15 11/25/17 06:00 BP 129/75 11/25/17 06:00 Pulse Ox 93 L 11/24/17 23:00 Intake & Output 11/24/17 11/25/17 11/25/17 18:59 06:59 18:59 Intake Total 250 Balance 250 Weight 72.575 kg Intake: Oral 250 Other: Voiding Method Diaper Diaper Incontinent Incontinent # Voids 4 1 # Bowel Movements 1 1 - Constitutional General appearance: Present: average body habitus, cooperative - EENT Eyes: Present: PERRLA ENT: Present: hearing grossly normal - Gastrointestinal General gastrointestinal: Present: normal bowel sounds - Genitourinary Genitourinary Comment(s): No vaginal bleeding currently. - Musculoskeletal Musculoskeletal: Present: generalized weakness - Labs CBC & Chem 7: 11/24/17 07:11 11/24/17 07:11 Labs: Abnormal Lab Results - Last 24 Hours (Table) 11/24/17 Range/Units 07:11 Glucose 109 H (74-99) mg/dL Assessment and Plan Plan: Patient likely to be discharged home today. I have provided a prescription for Vagifem tablets, 10 MCG, to be used every night for 14 days and then once weekly. Thank you for the consultation. Time with Patient: Less than 30
[2017-11-25] MEDS: DONEPEZIL 10 MG TAB PO SCH ×2 (08:58→20:23)
[2017-11-25] MEDS: PRAVASTATIN SODIUM 20 MG TAB PO SCH (08:58)
[2017-11-25] MEDS: MEMANTINE 5 MG TAB PO SCH ×2 (08:58→20:23)
[2017-11-25] MEDS: amLODIPine 10 MG TAB PO SCH (08:58)
[2017-11-25 09:35] LABS: Basophils % (A) 0 %; Eosinophils # (A) 0.2 k/uL (0-0.7); Eosinophils % (A) 4 %; HCT 41.1 % (34.0-46.0); HGB 13.8 gm/dL (11.4-16.0); Lymphocytes # (A) 1.8 k/uL (1.0-4.8); Lymphocytes % (A) 33 %; MCH 30.2 pg (25.0-35.0); MCHC 33.5 g/dL (31.0-37.0); MCV 90.1 fL (80.0-100.0); Mean Platelet Volume 6.8; Monocytes # (A) 0.3 k/uL (0-1.0); Monocytes % (A) 6 %; Neutrophils % (A) 54 %; Platelet Count 242 k/uL (150-450); RBC 4.56 m/uL (3.80-5.40); RDW 14.1 % (11.5-15.5); WBC 5.6 k/uL (3.8-10.6)
[2017-11-25 10:30] LABS: Anion Gap 9 mmol/L; Blood Urea Nitrogen 13 mg/dL (7-17); Calcium 8.9 mg/dL (8.4-10.2); Carbon Dioxide 22 mmol/L (22-30); Chloride 106 mmol/L (98-107); Glucose 163 mg/dL (74-99); Potassium 4.1 mmol/L (3.5-5.1); Sodium 137 mmol/L (137-145)
--- NOTE | 2017-11-25 11:55 | P.PN ---
Subjective This is a pleasant 87 years old female past medical history of CVA, dementia, history of relation, GERD, hyperlipidemia, hypertension, recurrent UTI, fall at home. She presents because she was not feeling well compared by her daughter. Patient is poor historian, she has dysarthria probably from old stroke however she casts answers with yes and no. Patient states she has dysuria but not increased frequency. She is not in pain for example no abdominal pain. No nausea vomiting. No chest pain or dyspnea. She was recently treated for UTI and failed outpatient treatment , UA emergency room highly suspicious for infection with large leukocyte esterase and urine will WBC more than 182. Also patient with pressure ulcers on the right ankle 11/23/2017 pt is resting calm in bed , not in distress, no leukocytosis , no fever , still on abx , no resp distress, cardiology and Consultant Dietitian consult is noted ,case was discussed with SEXTON HELPER attending , possible fistula with Urinary bladder vs vaginal atrophy , hemoglobin is stable and I agree with cardiology recommendation to c/ w xarelto for now as benefits more than risks in view of her h/o atrial fibrillation and stroke 11/25/2017 Patient is more lethargic and tired today. As per caregiver at bedside and she has diarrhea. When asked patient and she complains from pain anywhere she denies including chest pain and abdominal pain. No change in lab tests as noticed. She remains on IV vancomycin for presumptive staph aureus more than 100,000 in the urine culture Objective - Vital Signs Vital signs: Vital Signs Temp 97.7 F 11/25/17 06:00 Pulse 72 11/25/17 06:00 Resp 15 11/25/17 06:00 BP 129/75 11/25/17 06:00 Pulse Ox 93 L 11/24/17 23:00 Intake & Output 11/24/17 11/25/17 11/25/17 18:59 06:59 18:59 Intake Total 250 Balance 250 Weight 72.575 kg Intake: Oral 250 Other: Voiding Method Diaper Diaper Bedside Commode Incontinent Incontinent Incontinent # Voids 4 1 # Bowel Movements 1 1 - Exam GENERAL: The patient is alert and awake, not in any acute distress. Well developed, HEENT: Pupils are round and equally reacting to light. EOMI. No scleral icterus. No conjunctival pallor. Normocephalic, atraumatic. No pharyngeal erythema. -No thyromegaly. Has dysarthria CARDIOVASCULAR: S1 and S2 present. No murmurs, rubs, or gallops. PULMONARY: Chest is clear to auscultation, no wheezing or crackles. ABDOMEN: Soft, nontender, nondistended, normoactive bowel sounds. No palpable organomegaly. MUSCULOSKELETAL: No joint swelling or deformity. EXTREMITIES: No cyanosis, clubbing, or pedal edema. NEUROLOGICAL: Gross neurological examination did not reveal any focal deficits. SKIN: No rashes. - Labs CBC & Chem 7: 11/25/17 09:04 11/25/17 09:04 Labs: Abnormal Lab Results - Last 24 Hours (Table) 11/25/17 Range/Units 09:04 Glucose 163 H (74-99) mg/dL Assessment and Plan Plan: -UTI, failed outpatient treatment. Follow-up UC: staff and BC: No gross. She was started on Zosyn react ID consults -Diarrhea, we'll check for C. diff -Metabolic encephalopathy, mostly related to UTI. We'll do a CT of the brain to rule out acute versus any view patient taken anticoagulants -Pressure ulcers on the right heel, she'll follow with the wound clinic. call ID consult -History of dementia, continue with supportive treatment -hypertension continue with same and treatment -History of chronic atrial fibrillation, and review of CVA/TIA, continue with xarelto , cardiology input is appreciated, we'll restart anticoagulation as per cardiology recommendation -mild vx bleeding , h/o hysterectomy for benign reason, SEXTON HELPER consult is appreciated, pt has small clot at the vault of the apex , possible fistula versus vaginal atrophy , continue with conservative Mx currently. Patient was started on 14 days of intravaginal Vagifem 10 g Prophylaxis already on Xarelto GI prophylaxis on Pepcid Prognosis is guarded,
--- NOTE | 2017-11-25 14:03 | CT ---
EXAMINATION TYPE: CT brain wo con DATE OF EXAM: 11/25/2017 COMPARISON: 11/13/2017 HISTORY: delirium on anticoagulants CT DLP: [address] of the brain was performed. The ventricles, basal cisterns and sulci overlying the cerebral convexities demonstrate moderate enla rgement. Areas of remote insult are stable. There is no evidence for intracranial hemorrhage or sulcal effacement. There is inflammation decreased attenuation about the periventricular white matter and deep white mat ter of both cerebral hemispheres, compatible with chronic small vessel ischemia. Differential diagnos is does include demyelination. No mass effects are seen.No midline shift. Osseous calvarium is intact. If symptoms persist consider MRI. IMPRESSION: 1. Age related atrophic and chronic small vessel ischemic change without acute intracranial process s een at this time.
[2017-11-25] MEDS: RIVAROXABAN 15 MG TAB PO SCH (17:19)
[2017-11-25] MEDS: MELATONIN 5 MG TABLET PO SCH (20:23)
[2017-11-25] MEDS: MULTIVITAMINS, THERA 1 EACH TAB PO SCH (20:23)
[2017-11-25] MEDS: ESTRADIOL 0.1 MG/GM VAGINAL CREAM 42.5 GM TUBE VAGINAL SCH (20:23)
--- NOTE | 2017-11-25 23:56 | PN ---
PROGRESS NOTE DATE OF SERVICE: 11/25/2017. REASON FOR FOLLOWUP: 1. Urinary tract infection. 2. Right heel wound. INTERVAL HISTORY: The patient is afebrile. She seemed to be slightly more lethargic today per the daughter, but she was able to open her eyes to her name and answer some simple questions, mostly answered yes. No abdominal pain. No nausea, vomiting, or any diarrhea has been noticed. EXAMINATION: Blood pressure 115/53 with a pulse of 75, temperature 97.1. She is 95% on room air. General description is an elderly female, lying in bed in no distress. RESPIRATORY SYSTEM: Unlabored breathing. Clear to auscultation anteriorly. HEART: S1, S2. Regular rate and rhythm. ABDOMEN: Soft. No tenderness. LABS: Hemoglobin is 13.8, white count 5.6. BUN of 13, creatinine 0.66. DIAGNOSTIC IMPRESSION AND PLAN: 1. Patient with recurrent urinary tract infection infection with urine culture showing Staphylococcus aureus, sensitivities pending. We will keep the patient on vancomycin, Pharmacy to dose while waiting for the culture to finalize. 2. Patient with a right heel wound. Continue local wound care with Hydrofera Blue. Keep the area off the pressure. MMODL / IJN: [id number] /
[2017-11-26] MEDS: MEMANTINE 5 MG TAB PO SCH (09:06)
[2017-11-26] MEDS: amLODIPine 10 MG TAB PO SCH (09:06)
[2017-11-26] MEDS: DONEPEZIL 10 MG TAB PO SCH (09:06)
[2017-11-26] MEDS: PRAVASTATIN SODIUM 20 MG TAB PO SCH (09:06)
[2017-11-26] MEDS ORDERED: ceFAZolin IN SWFI 2 GM/20 ML SYRINGE IVP SCH (09:30)
--- NOTE | 2017-11-26 12:42 | PN ---
PROGRESS NOTE DATE OF SERVICE: 11/26/2017 REASON FOR FOLLOWUP: 1. MSSA urinary tract infection. 2. Right heel wound. INTERVAL HISTORY: The patient is afebrile. She is breathing comfortably. Slightly more awake and alert today. No nausea or vomiting. No abdominal pain. Did have some loose stool, which is chronic for her. PHYSICAL EXAMINATION: On examination, blood pressure 130/66, pulse of 78, temperature 97.4. She is 92% on room air. General description is an elderly female lying in bed in no distress. RESPIRATORY SYSTEM: Unlabored breathing, clear to auscultation anteriorly. HEART: S1, S2. Regular rate and rhythm. ABDOMEN: Soft, no tenderness. Right heel was currently dressed up. LABS: BUN of 13, creatinine 0.66. Hemoglobin 13.8, white count 5.6. Urine culture with MSSA. Unfortunately no blood cultures were done this admission. DIAGNOSTIC IMPRESSION AND PLAN: 1. Patient with MSSA urinary tract infection. History of recurrent urinary tract infection. Plan at this time is to switch her over to cefazolin 2 grams q.8 and able to finish therapy with oral Keflex daily for about a week. 2. Right heel wound. Local wound care with Hydrofera Blue and heel protector. Daughter present at bedside. Questions were answered. MMODL / IJN: [id number] /
[2017-11-26 16:01] VITALS: BP 97/54; PULSE 83; RESP 20; TEMP 98.7
--- NOTE | 2017-11-26 16:16 | P.DS ---
Providers Date of admission: 11/22/17 15:54 Attending physician: Giacomo Cornejo Consults: 11/22/17 18:33 Consult Physician Urgent Consulting Provider: Fernando Khalil Consult Reason/Comments: UTI, Right heel wound Do you want consulting provider notified?: Yes 11/23/17 06:46 Consult Physician Routine Consulting Provider: Betsey GAS APPLIANCE MECHANIC Consult Reason/Comments: Vaginal bleeding Do you want consulting provider notified?: Yes, Notify in am 11/23/17 06:48 Consult Physician Routine Consulting Provider: [facility] Consult Reason/Comments: D/c Xarelto r/t vaginal bleed, history of a-fib Do you want consulting provider notified?: Yes, Notify in am Primary care physician: Malik Nichols [facility] Course: This is a pleasant 87 years old female past medical history of CVA, dementia, history of relation, GERD, hyperlipidemia, hypertension, recurrent UTI, fall at home. She presents because she was not feeling well compared by her daughter. Patient is poor historian, she has dysarthria probably from old stroke however she casts answers with yes and no. Patient states she has dysuria but not increased frequency. She is not in pain for example no abdominal pain. No nausea vomiting. No chest pain or dyspnea. She was recently treated for UTI and failed outpatient treatment , UA emergency room highly suspicious for infection with large leukocyte esterase and urine will WBC more than 182. Also patient with pressure ulcers on the right ankle pt has been evaluated by ID team , and treated with vancomycin and later with cefazolin for MSSA in the urine culture , she will be discharged on keflex 500 mg TID for 7 day as per ID recommendation. 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 pt generalized weakness is improving and she is more awake today and able to smile however she has baseline of advanced dementia and she will need care , she has a friend who take care of her all the time besides her daughter who wants to take her home pt was cleared by ID, cardilogy and NETWORK DEVELOPMENT COORDINATOR serviced for discharge , pt is found stable and can be discharge however she needs f/u as outpt Patient Condition at Discharge: Fair Plan - Discharge Summary New Discharge Prescriptions: New Cephalexin [Keflex] 500 mg PO Q8HR 7 Days #21 cap Estradiol Cream [Estrace Cream 0.01%] 1 applic VAGINAL HS #1 applic Rivaroxaban [Xarelto] 15 mg PO W/SUPPER #30 tab Discontinued Rivaroxaban [Xarelto] 20 mg PO DAILY No Action Multivitamin/Iron/Folic Acid [Centrum Complete Multivit Tab] 1 tab PO HS Garlic 1 tab PO DAILY Glucosamine-Chondr 500-400Mg 1 tab PO DAILY Pravastatin Sodium [Pravachol] 10 mg PO DAILY Memantine [Namenda] 5 mg PO BID Donepezil HCl [Aricept] 10 mg PO BID Acetaminophen Tab [Tylenol] 1,000 mg PO HS amLODIPine [Norvasc] 10 mg PO DAILY Melatonin 10 mg PO HS Discharge Medication List Garlic 1 tab PO DAILY 01/14/14 [History] Glucosamine-Chondr 500-400Mg 1 tab PO DAILY 01/14/14 [History] Multivitamin/Iron/Folic Acid [Centrum Complete Multivit Tab] 1 tab PO HS [History] Donepezil HCl [Aricept] 10 mg PO BID 07/21/15 [History] Memantine [Namenda] 5 mg PO BID 07/21/15 [History] Pravastatin Sodium [Pravachol] 10 mg PO DAILY 07/21/15 [History] Acetaminophen Tab [Tylenol] 1,000 mg PO HS 05/07/16 [History] Melatonin 10 mg PO HS 04/10/17 [History] amLODIPine [Norvasc] 10 mg PO DAILY 04/10/17 [History] Cephalexin [Keflex] 500 mg PO Q8HR 7 Days #21 cap 11/26/17 [Rx] Estradiol Cream [Estrace Cream 0.01%] 1 applic VAGINAL HS #1 applic 11/26/17 [Rx ] Rivaroxaban [Xarelto] 15 mg PO W/SUPPER #30 tab 11/26/17 [Rx] Follow up Appointment(s)/Referral(s): Norma Mancuso MD [STAFF PHYSICIAN] - 2 Weeks (atrial fibrillation ) Liliana Gan MD [Primary Care Provider] - 1-2 days Samia Sharif MD [STAFF PHYSICIAN] - 2 Weeks (for atrophic vaginitis ) Fernando Khalil MD [STAFF PHYSICIAN] - 1 Week [facility] Visiting Nurse, [NON-STAFF] - Patient Instructions/Handouts: Urinary Tract Infection in Women (DC), Vaginal Atrophy (GEN) Activity/Diet/Wound Care/Special Instructions: cardiac diet activity is restricted till you see your doctor
== END 2017-11-26 16:44 | disposition home health service (06) | DRG 690 ==
LOC: EC 11:43 → 4MS4W 15:54
PROVIDERS: ADMIT Hospitalist; ATTEND Hospitalist
DX: N39.0 Urinary tract infection, site not specified (principal); N82.1 Other female urinary-genital tract fistulae; B95.61 Methicillin susceptible Staphylococcus aureus infection as the cause of diseases classified elsewhere; E03.9 Hypothyroidism, unspecified; E78.5 Hyperlipidemia, unspecified; F02.80 Dementia in other diseases classified elsewhere, unspecified severity, without behavioral disturbance, psychotic disturbance, mood disturbance, and anxiety; R19.7 Diarrhea, unspecified; G30.9 Alzheimer's disease, unspecified; I10 Essential (primary) hypertension; I48.2 Chronic atrial fibrillation; J44.9 Chronic obstructive pulmonary disease, unspecified; K21.9 Gastro-esophageal reflux disease without esophagitis; L89.519 Pressure ulcer of right ankle, unspecified stage; L89.619 Pressure ulcer of right heel, unspecified stage; M81.0 Age-related osteoporosis without current pathological fracture; N64.59 Other signs and symptoms in breast; K64.9 Unspecified hemorrhoids; M19.90 Unspecified osteoarthritis, unspecified site; R15.9 Full incontinence of feces; R32 Unspecified urinary incontinence; R91.1 Solitary pulmonary nodule; N95.2 Postmenopausal atrophic vaginitis; Z79.01 Long term (current) use of anticoagulants; Z79.899 Other long term (current) drug therapy; Z96.642 Presence of left artificial hip joint; Z90.710 Acquired absence of both cervix and uterus; Z87.440 Personal history of urinary (tract) infections; Z88.2 Allergy status to sulfonamides; Z85.828 Personal history of other malignant neoplasm of skin; Z90.49 Acquired absence of other specified parts of digestive tract; Z98.42 Cataract extraction status, left eye; Z98.41 Cataract extraction status, right eye; Z96.1 Presence of intraocular lens; I69.922 Dysarthria following unspecified cerebrovascular disease; Z80.3 Family history of malignant neoplasm of breast; Z80.0 Family history of malignant neoplasm of digestive organs
CPT/HCPCS: 70450; 80048; 80053; 81001; 82272; 82550; 82553; 83605; 83735; 84100; 84450; 84460; 84484; 85025; 85610; 85730; 87077; 87086; 87186; 87324; 93005; 96365; 96366; 99285

== ENCOUNTER 2017-12-30 16:49 | Inpatient (IN) | payer MEDICARE, BC ==
[2017-12-30] MEDS ORDERED: cefTRIAXone 2,000 MG in SODIUM CHLORIDE 0.9% 100 ML IVPB STA (17:32)
[2017-12-30] MEDS ORDERED: cefTRIAXone IN SWFI 2,000 MG/20 ML SYRINGE IVP STA (17:34)
--- NOTE | 2017-12-30 17:35 | ED ---
General Adult HPI - General Chief complaint: Weakness Stated complaint: UTI Time Seen by Provider: 12/30/17 16:50 Source: family, EMS, RN notes reviewed Mode of arrival: EMS Limitations: altered mental status, physical limitation - History of Present Illness Initial comments: This is an 87-year-old female who comes into the emergency department via ambulance with her daughters because she has altered mentally. Daughter states she has had this happen many times before with a urinary tract infection and yesterday she started to become a little bit altered and today she was much more confused to the point where they decided to bring her to the emergency department. Daughter states she's normally alert and oriented 2 but today she just babbling not making sense and not answering questions. Patient has had no cough or difficulty breathing according to the daughters. Daughter state that the patient has not anytime been in any distress. There's been no vomiting or diarrhea there's been no rashes or lesions that the daughters scene. Patient is unable give me any history at this time. - Related Data Home Medications Medication Instructions Recorded Confirmed Garlic 1 tab PO DAILY 01/14/14 12/30/17 Glucosamine-Chondr 500-400Mg 1 tab PO DAILY 01/14/14 12/30/17 Multivitamin/Iron/Folic Acid 1 tab PO HS 01/14/14 12/30/17 [Centrum Complete Multivit Tab] Donepezil HCl [Aricept] 10 mg PO BID 07/21/15 12/30/17 Memantine [Namenda] 5 mg PO BID 07/21/15 12/30/17 Pravastatin Sodium [Pravachol] 10 mg PO DAILY 07/21/15 12/30/17 Melatonin 10 mg PO HS 04/10/17 12/30/17 amLODIPine [Norvasc] 10 mg PO DAILY 04/10/17 12/30/17 Nitrofurantoin Monohyd/M-Cryst 100 mg PO Q12HR 12/30/17 12/30/17 [Macrobid] Previous Rx's Medication Instructions Recorded Rivaroxaban [Xarelto] 15 mg PO W/SUPPER #30 tab 11/26/17 Allergies Allergy/AdvReac Type Severity Reaction Status Date / Time Sulfa (Sulfonamide Allergy Unknown Verified 12/30/17 17:17 Antibiotics) Review of Systems ROS Statement: Those systems with pertinent positive or pertinent negative responses have been documented in the HPI. ROS Other: All systems not noted in ROS Statement are negative. Past Medical History Past Medical History: Atrial Fibrillation, CVA/TIA, Dementia, GERD/Reflux, Hyperlipidemia, Hypertension, Osteoarthritis (OA), Pneumonia Additional Past Medical History / Comment(s): CVA's and TIA's, tracheobronchitis, RLL NODULE, pelvic fracture, DJD, osteoporosis, , hemorrhoids , recent fall at home, R heel ulcer-receiving weekly dressing changes at wound center History of Any Multi-Drug Resistant Organisms: None Reported Past Surgical History: Appendectomy, Cholecystectomy, Hysterectomy, Joint Replacement Additional Past Surgical History / Comment(s): Bilateral EYE CATARACT SX, bladder suspension, colonoscopy, skin cancer removals. left hip replacement Past Anesthesia/Blood Transfusion Reactions: No Reported Reaction Past Psychological History: No Psychological Hx Reported Smoking Status: Never smoker Past Alcohol Use History: None Reported Past Drug Use History: None Reported - Past Family History Sister(s) Family Medical History: Cancer Additional Family Medical History / Comment(s): colon CA Father Family Medical History: Unable to Obtain Additional Family Medical History / Comment(s): AT AGE 70 HX UNK Mother Family Medical History: Cancer Additional Family Medical History / Comment(s): AGE 55 BREAST CA General Exam - General Exam Comments Initial Comments: GENERAL: Patient is well-developed and well-nourished. Patient is nontoxic and well- hydrated and is in no acute distress. ENT: Neck is soft and supple. No significant lymphadenopathy is noted. Oropharynx is clear. Moist mucous membranes. Neck has full range of motion without eliciting any pain. EYES: The sclera were anicteric and conjunctiva were pink and moist. Extraocular movements were intact and pupils were equal round and reactive to light. Eyelids were unremarkable. PULMONARY: Unlabored respirations. Good breath sounds bilaterally. No audible rales rhonchi or wheezing was noted. CARDIOVASCULAR: There is a regular rate and rhythm without any murmurs gallops or rubs. ABDOMEN: Soft and nontender with normal bowel sounds. No palpable organomegaly was noted. There is no palpable pulsatile mass. SKIN: Skin is clear with no lesions or rashes and otherwise unremarkable. NEUROLOGIC: Patient is alert and oriented 1. Cranial nerves II through XII are grossly intact. Motor was intact. Unable to assess speech MUSCULOSKELETAL: Normal extremities with adequate strength and full range of motion. No lower extremity swelling or edema. No calf tenderness. LYMPHATICS: No significant lymphadenopathy is noted PSYCHIATRIC: Unable to assess Limitations: altered mental status, physical limitation Course Vital Signs 12/30/17 12/30/17 12/30/17 17:14 17:30 18:13 Temperature 99.1 F 101.1 F H Pulse Rate 99 97 Respiratory 17 16 Rate Blood Pressure 121/60 121/60 O2 Sat by Pulse 95 96 Oximetry 12/30/17 19:06 Temperature Pulse Rate 92 Respiratory 17 Rate Blood Pressure 119/59 O2 Sat by Pulse 95 Oximetry Medical Decision Making - Medical Decision Making EKG shows sinus tachycardia at 109 bpm SC interval 250 QRS is under 26 Q-T intervals 372 QTC is 500. Patient's EKG shows a left bundle branch block. Patient received 2 g of Rocephin upon arrival. Patient was diagnosed with urinary tract infection and sepsis. I spoke with the nurse practitioner for Dr. Cornejo and admitted the patient I wrote admitting orders. I bolused the patient a liter of fluid as well as the emergency department and continued hydrating her on the floor. - Lab Data Result diagrams: 12/30/17 17:46 12/30/17 17:46 Lab Results 12/30/17 12/30/17 12/30/17 Range/Units 17:46 17:46 17:46 WBC 22.7 H (3.8-10.6) k/uL RBC 4.81 (3.80-5.40) m/uL Hgb 14.8 (11.4-16.0) gm/dL Hct 46.3 H (34.0-46.0) % MCV 96.4 D (80.0-100.0) fL MCH 30.7 (25.0-35.0) pg MCHC 31.9 (31.0-37.0) g/dL RDW 14.3 (11.5-15.5) % Plt Count 268 (150-450) k/uL Neutrophils % 95 % Lymphocytes % 1 % Monocytes % 2 % Eosinophils % 1 % Basophils % 0 % Neutrophils # 21.5 H (1.3-7.7) k/uL Lymphocytes # 0.3 L (1.0-4.8) k/uL Monocytes # 0.5 (0-1.0) k/uL Eosinophils # 0.3 (0-0.7) k/uL Basophils # 0.0 (0-0.2) k/uL PT (9.0-12.0) sec INR (<1.2) APTT (22.0-30.0) sec Sodium 139 (137-145) mmol/L Potassium 4.5 (3.5-5.1) mmol/L Chloride 104 (98-107) mmol/L Carbon Dioxide 24 (22-30) mmol/L Anion Gap 11 mmol/L BUN 26 H (7-17) mg/dL Creatinine 0.70 (0.52-1.04) mg/dL Est GFR (CKD-EPI)AfAm 89 (>60 ml/min/1.73 sqM) Est GFR (CKD-EPI)NonAf 77 (>60 ml/min/1.73 sqM) Glucose 150 H (74-99) mg/dL Plasma Lactic Acid Stephen 2.2 H* (0.7-2.0) mmol/L Calcium 9.8 (8.4-10.2) mg/dL Total Bilirubin 1.4 H (0.2-1.3) mg/dL AST 133 H (14-36) U/L ALT 120 H (9-52) U/L Alkaline Phosphatase 110 (38-126) U/L Troponin I (0.000-0.034) ng/mL Total Protein 8.1 (6.3-8.2) g/dL Albumin 4.5 (3.5-5.0) g/dL Urine Color Urine Appearance (Clear) Urine pH (5.0-8.0) Ur Specific [place] (1.001-1.035) Urine Protein (Negative) Urine Glucose (UA) (Negative) Urine Ketones (Negative) Urine Blood (Negative) Urine Nitrite (Negative) Urine Bilirubin (Negative) Urine Urobilinogen (<2.0) mg/dL Ur Leukocyte Esterase (Negative) Urine RBC (0-5) /hpf Urine WBC (0-5) /hpf Urine WBC Clumps (None) /hpf Ur Squamous Epith Cells (0-4) /hpf Urine Bacteria (None) /hpf Urine Mucus (None) /hpf 12/30/17 12/30/17 12/30/17 Range/Units 17:46 17:46 18:08 WBC (3.8-10.6) k/uL RBC (3.80-5.40) m/uL Hgb (11.4-16.0) gm/dL Hct (34.0-46.0) % MCV (80.0-100.0) fL MCH (25.0-35.0) pg MCHC (31.0-37.0) g/dL RDW (11.5-15.5) % Plt Count (150-450) k/uL Neutrophils % % Lymphocytes % % Monocytes % % Eosinophils % % Basophils % % Neutrophils # (1.3-7.7) k/uL Lymphocytes # (1.0-4.8) k/uL Monocytes # (0-1.0) k/uL Eosinophils # (0-0.7) k/uL Basophils # (0-0.2) k/uL PT 12.2 H (9.0-12.0) sec INR 1.3 H (<1.2) APTT 31.8 H (22.0-30.0) sec Sodium (137-145) mmol/L Potassium (3.5-5.1) mmol/L Chloride (98-107) mmol/L Carbon Dioxide (22-30) mmol/L Anion Gap mmol/L BUN (7-17) mg/dL Creatinine (0.52-1.04) mg/dL Est GFR (CKD-EPI)AfAm (>60 ml/min/1.73 sqM) Est GFR (CKD-EPI)NonAf (>60 ml/min/1.73 sqM) Glucose (74-99) mg/dL Plasma Lactic Acid Stephen (0.7-2.0) mmol/L Calcium (8.4-10.2) mg/dL Total Bilirubin (0.2-1.3) mg/dL AST (14-36) U/L ALT (9-52) U/L Alkaline Phosphatase (38-126) U/L Troponin I <0.012 (0.000-0.034) ng/mL Total Protein (6.3-8.2) g/dL Albumin (3.5-5.0) g/dL Urine Color Yellow Urine Appearance Cloudy H (Clear) Urine pH 5.5 (5.0-8.0) Ur Specific [place] 1.018 (1.001-1.035) Urine Protein Trace H (Negative) Urine Glucose (UA) Trace H (Negative) Urine Ketones Negative (Negative) Urine Blood Small H (Negative) Urine Nitrite Negative (Negative) Urine Bilirubin Negative (Negative) Urine Urobilinogen <2.0 (<2.0) mg/dL Ur Leukocyte Esterase Large H (Negative) Urine RBC 2 (0-5) /hpf Urine WBC 24 H (0-5) /hpf Urine WBC Clumps Few H (None) /hpf Ur Squamous Epith Cells 1 (0-4) /hpf Urine Bacteria Rare H (None) /hpf Urine Mucus Occasional H (None) /hpf Critical Care Time Critical Care Time: Yes Total Critical Care Time: 35 Disposition Clinical Impression: Sepsis, Urinary tract infection Disposition: ADMITTED IP TO THIS HOSP Referrals: Liliana Gan MD [Primary Care Provider] - 1-2 days Time of Disposition: 19:49
[2017-12-30] MEDS: SODIUM CHLORIDE 0.9% 500 ML IV SCH ×2 (17:48→19:56)
[2017-12-30 18:07] LABS: Basophils % (A) 0 %; Eosinophils # (A) 0.3 k/uL (0-0.7); Eosinophils % (A) 1 %; HCT 46.3 % (34.0-46.0); HGB 14.8 gm/dL (11.4-16.0); Lymphocytes # (A) 0.3 k/uL (1.0-4.8); Lymphocytes % (A) 1 %; MCH 30.7 pg (25.0-35.0); MCHC 31.9 g/dL (31.0-37.0); Mean Platelet Volume 6.2; Monocytes # (A) 0.5 k/uL (0-1.0); Monocytes % (A) 2 %; Neutrophils # (A) 21.5 k/uL (1.3-7.7); Neutrophils % (A) 95 %; Platelet Count 268 k/uL (150-450); RBC 4.81 m/uL (3.80-5.40); RDW 14.3 % (11.5-15.5); WBC 22.7 k/uL (3.8-10.6)
[2017-12-30 18:10] LABS: MCV 96.4 fL (80.0-100.0)
[2017-12-30] MEDS ORDERED: ACETAMINOPHEN TAB 500 MG TAB PO STA (18:13)
[2017-12-30] MEDS ORDERED: IBUPROFEN 600 MG TAB PO STA (18:13)
[2017-12-30 18:19] LABS: Albumin 4.5 g/dL (3.5-5.0); Calcium 9.8 mg/dL (8.4-10.2); INR 1.3 (<1.2); Partial Thromboplastin Time 31.8 sec (22.0-30.0); Potassium 4.5 mmol/L (3.5-5.1); Prothrombin Time 12.2 sec (9.0-12.0); Total Bilirubin 1.4 mg/dL (0.2-1.3); Total Protein 8.1 g/dL (6.3-8.2)
[2017-12-30 18:22] LABS: Appearance,Urine Cloudy (Clear); Bacteria,Urine Rare /hpf; Bilirubin,Urine Negative (Negative); Blood,Urine Small (Negative); Color,Urine Yellow; Glucose,Urine (UA) Trace (Negative); Ketones,Urine Negative (Negative); Leukocyte Esterase,Urine Large (Negative); Mucus,Urine Occasional /hpf; Nitrite,Urine Negative (Negative); PH, Urine 5.5 (5.0-8.0); Protein,Urine Trace (Negative); RBC,Urine 2 /hpf (0-5); Specific Gravity,Urine 1.018 (1.001-1.035); Squamous Epithelial Cell,Urine 1 /hpf (0-4); Urobilinogen,Urine <2.0 mg/dL (<2.0); WBC,Urine 24 /hpf (0-5)
--- NOTE | 2017-12-30 18:42 | XR ---
EXAMINATION TYPE: XR chest 2V DATE OF EXAM: 12/30/2017 COMPARISON: 10/12/2017 HISTORY: Lethargy. Confusion TECHNIQUE: Frontal and lateral views of the chest are obtained. FINDINGS: Heart and mediastinum are normal. There is some coarsening of interstitial markings. There is no heart failure. There are chest leads. Costophrenic angles are fairly clear. IMPRESSION: Interstitial fibrotic changes. No gross heart failure. There is clearing of the heart fa ilure compared to old exam.
[2017-12-30] MEDS ORDERED: SODIUM CHLORIDE 0.9% 1,000 ML IV ONE ×2 (19:49→23:05)
[2017-12-31] MEDS: cefTRIAXone IN SWFI 2,000 MG/20 ML SYRINGE IVP SCH (07:37)
[2017-12-31] MEDS ORDERED: GLUCOSAMINE CHONDR MSM PO SCH (10:00)
[2017-12-31] MEDS: DONEPEZIL 10 MG TAB PO SCH ×2 (10:13→21:20)
[2017-12-31] MEDS: MEMANTINE 5 MG TAB PO SCH ×2 (10:13→21:20)
[2017-12-31] MEDS: PRAVASTATIN SODIUM 20 MG TAB PO SCH (10:13)
[2017-12-31] MEDS ORDERED: ACETAMINOPHEN TAB 500 MG TAB PO PRN (11:43)
--- NOTE | 2017-12-31 12:40 | P.HPIM ---
History of Present Illness 87-year-old pleasant female with advanced dementia appears to have dementia of Alzheimer's type came in with complaints of confusion. Caregiver is at bedside daughter is not present at this point of time patient has fever and leukocytosis with abnormal urine probably urinary tract infection patient although denies any complaints of chest pain cough she she wanted to do his wanted to go home patient is alert oriented 1-2 itches her baseline her confusion appears to have improved.. Patient had Staphylococcus in the urine in the past as well as E. coli in the past. Patient is presently doesn't have any fevers chills. No nausea no vomiting. Review of Systems All other systems are negative except those mentioned above most review of the systems are limited because of the her dementia. Past Medical History Past Medical History: Atrial Fibrillation, CVA/TIA, Dementia, Hyperlipidemia, Hypertension, Osteoarthritis (OA), Pneumonia Additional Past Medical History / Comment(s): CVA's and TIA's, tracheobronchitis, RLL NODULE, DJD, osteoporosis,uti's , hemorrhoids, hx of falls past pelvic.lt hip fx R heel ulcer-goes to [facility] every other week on fridays History of Any Multi-Drug Resistant Organisms: None Reported Past Surgical History: Appendectomy, Cholecystectomy, Hysterectomy, Joint Replacement Additional Past Surgical History / Comment(s): Bilateral EYE CATARACT SX, bladder suspension, colonoscopy, skin cancer removals. left hip replacement Past Anesthesia/Blood Transfusion Reactions: No Reported Reaction Smoking Status: Never smoker - Past Family History Sister(s) Family Medical History: Cancer Additional Family Medical History / Comment(s): colon CA Father Family Medical History: Unable to Obtain Additional Family Medical History / Comment(s): AT AGE 70 HX UNK Mother Family Medical History: Cancer Additional Family Medical History / Comment(s): AGE 55 BREAST CA Medications and Allergies Home Medications Medication Instructions Recorded Confirmed Type Garlic 1 tab PO DAILY 01/14/14 12/30/17 History Glucosamine-Chondr 500-400Mg 1 tab PO DAILY 01/14/14 12/30/17 History Multivitamin/Iron/Folic Acid 1 tab PO HS 01/14/14 12/30/17 History [Centrum Complete Multivit Tab] Donepezil HCl [Aricept] 10 mg PO BID 07/21/15 12/30/17 History Memantine [Namenda] 5 mg PO BID 07/21/15 12/30/17 History Pravastatin Sodium [Pravachol] 10 mg PO DAILY 07/21/15 12/30/17 History Melatonin 10 mg PO HS 04/10/17 12/30/17 History amLODIPine [Norvasc] 10 mg PO DAILY 04/10/17 12/30/17 History Rivaroxaban [Xarelto] 15 mg PO W/SUPPER #30 tab 11/26/17 12/30/17 Rx Nitrofurantoin Monohyd/M-Cryst 100 mg PO Q12HR 12/30/17 12/30/17 History [Macrobid] Allergies Allergy/AdvReac Type Severity Reaction Status Date / Time Sulfa (Sulfonamide Allergy Unknown Verified 12/30/17 17:17 Antibiotics) Physical Exam Vitals: Vital Signs Temp Pulse Pulse Resp BP BP Pulse Ox 12/31/17 06:58 98.5 F 86 16 120/61 96 12/30/17 23:00 98.7 F 80 14 101/62 94 L 12/30/17 21:17 97.9 F 78 16 103/61 96 12/30/17 21:00 14 12/30/17 20:00 87 16 119/58 95 12/30/17 19:06 92 17 119/59 95 12/30/17 18:13 101.1 F H 12/30/17 17:30 97 16 121/60 96 12/30/17 17:14 99.1 F 99 17 121/60 95 Intake and Output 12/30/17 12/31/17 12/31/17 22:59 06:59 14:59 Intake Total 2400 1199 Balance 2400 1199 Intake: Intake, IV Titration 2400 1199 Amount Sodium Chloride 0.9% 1, 1000 200 000 ml @ 100 mls/hr IV . Q10H ONE Rx#:[id number] Sodium Chloride 0.9% 1, 1000 999 000 ml @ 999 mls/hr IV . Q1H1M ONE Rx#:[id number] Sodium Chloride 0.9% 500 300 ml @ 1000 mls/hr IV Q35M [facility] Rx#:[id number] cefTRIAXone 2,000 mg In 100 Sodium Chloride 0.9% 100 ml @ 100 mls/hr IVPB ONCE STA Rx#:[id number] Other: Voiding Method Diaper Diaper # Voids 2 # Bowel Movements 1 Weight 73.482 kg PHYSICAL EXAMINATION: GENERAL: The patient is alert and oriented x1, not in any acute distress. Well developed, well nourished. HEENT: Pupils are round and equally reacting to light. EOMI. No scleral icterus. No conjunctival pallor. Normocephalic, atraumatic. No pharyngeal erythema. No thyromegaly. CARDIOVASCULAR: S1 and S2 present. No murmurs, rubs, or gallops. PULMONARY: Chest is clear to auscultation, no wheezing or crackles. ABDOMEN: Soft, nontender, nondistended, normoactive bowel sounds. No palpable organomegaly. MUSCULOSKELETAL: No joint swelling or deformity. EXTREMITIES: No cyanosis, clubbing, or pedal edema. NEUROLOGICAL: Gross neurological examination did not reveal any new focal deficits. Limited exam due to her dementia SKIN: No rashes. Results CBC & Chem 7: 12/30/17 17:46 12/30/17 17:46 Labs: Abnormal Lab Results - Last 24 Hours (Table) 12/30/17 12/30/17 12/30/17 Range/Units 17:46 17:46 17:46 WBC 22.7 H (3.8-10.6) k/uL Hct 46.3 H (34.0-46.0) % Neutrophils # 21.5 H (1.3-7.7) k/uL Lymphocytes # 0.3 L (1.0-4.8) k/uL PT (9.0-12.0) sec INR (<1.2) APTT (22.0-30.0) sec BUN 26 H (7-17) mg/dL Glucose 150 H (74-99) mg/dL Plasma Lactic Acid Stephen 2.2 H* (0.7-2.0) mmol/L Total Bilirubin 1.4 H (0.2-1.3) mg/dL AST 133 H (14-36) U/L ALT 120 H (9-52) U/L Urine Appearance (Clear) Urine Protein (Negative) Urine Glucose (UA) (Negative) Urine Blood (Negative) Ur Leukocyte Esterase (Negative) Urine WBC (0-5) /hpf Urine WBC Clumps (None) /hpf Urine Bacteria (None) /hpf Urine Mucus (None) /hpf 0812/30/17 12/30/17 Range/Units 17:46 18:08 21:42 WBC (3.8-10.6) k/uL Hct (34.0-46.0) % Neutrophils # (1.3-7.7) k/uL Lymphocytes # (1.0-4.8) k/uL PT 12.2 H (9.0-12.0) sec INR 1.3 H (<1.2) APTT 31.8 H (22.0-30.0) sec BUN (7-17) mg/dL Glucose (74-99) mg/dL Plasma Lactic Acid Stephen 2.4 H* (0.7-2.0) mmol/L Total Bilirubin (0.2-1.3) mg/dL AST (14-36) U/L ALT (9-52) U/L Urine Appearance Cloudy H (Clear) Urine Protein Trace H (Negative) Urine Glucose (UA) Trace H (Negative) Urine Blood Small H (Negative) Ur Leukocyte Esterase Large H (Negative) Urine WBC 24 H (0-5) /hpf Urine WBC Clumps Few H (None) /hpf Urine Bacteria Rare H (None) /hpf Urine Mucus Occasional H (None) /hpf Microbiology - Last 24 Hours (Table) 12/30/17 18:08 Urine Culture - Preliminary Urine,Catheterized Thrombosis Risk Factor Assmnt - Choose All That Apply Each Factor Represents 1 point: Medical pt on bed rest, Obesity (BMI >25), Sepsis (< 1month) Other Risk Factors: Yes Each Risk Factor Represents 3 Points: Age 75 years or older Thrombosis Risk Factor Assessment Total Risk Factor Score: 6 Thrombosis Risk Factor Assessment Level: High Risk Assessment and Plan Plan: Sepsis, lactic is doses: Secondary to urinary tract infection patient was started on Rocephin awaiting urine cultures blood cultures. IV fluids will be continued repeat lactic acid again -Elevated liver enzymes probably cause secondary to sepsis: Repeat liver enzymes tomorrow. -Advanced dementia: Probably secondary to Alzheimer's avoid opiates benzodiazepines barbiturates and anticholinergic medications. -CVA TIA in the past next and heparin hyperlipidemia -Hypertension
[2017-12-31] MEDS: RIVAROXABAN 15 MG TAB PO SCH (17:10)
[2017-12-31] MEDS: MELATONIN 5 MG TABLET PO SCH (21:20)
[2017-12-31] MEDS: MULTIVITAMINS, THERA 1 EACH TAB PO SCH (21:20)
[2018-01-01] MEDS: PRAVASTATIN SODIUM 20 MG TAB PO SCH (08:21)
[2018-01-01] MEDS: cefTRIAXone IN SWFI 2,000 MG/20 ML SYRINGE IVP SCH (08:21)
[2018-01-01] MEDS: MEMANTINE 5 MG TAB PO SCH ×2 (08:21→20:59)
[2018-01-01] MEDS: DONEPEZIL 10 MG TAB PO SCH ×2 (08:21→20:58)
[2018-01-01 08:32] LABS: HCT 39.7 % (34.0-46.0); HGB 12.4 gm/dL (11.4-16.0); MCH 30.2 pg (25.0-35.0); MCHC 31.4 g/dL (31.0-37.0); MCV 96.4 fL (80.0-100.0); Mean Platelet Volume 6.5; Platelet Count 231 k/uL (150-450); RBC 4.12 m/uL (3.80-5.40); RDW 14.3 % (11.5-15.5); WBC 6.3 k/uL (3.8-10.6)
[2018-01-01 08:46] LABS: ALT 71 U/L (9-52); AST 35 U/L (14-36); Albumin 3.4 g/dL (3.5-5.0); Alkaline Phosphatase 87 U/L (38-126); Anion Gap 10 mmol/L; Blood Urea Nitrogen 10 mg/dL (7-17); Calcium 8.5 mg/dL (8.4-10.2); Carbon Dioxide 24 mmol/L (22-30); Chloride 104 mmol/L (98-107); Glucose 125 mg/dL (74-99); Potassium 3.6 mmol/L (3.5-5.1); Sodium 138 mmol/L (137-145); Total Bilirubin 0.6 mg/dL (0.2-1.3); Total Protein 6.6 g/dL (6.3-8.2)
[2018-01-01] MEDS ORDERED: Potassium Replacement Protocol 1 EACH MISC MISCELLANE PRN (14:37)
--- NOTE | 2018-01-01 14:37 | P.PN ---
Subjective Progress Note Date: 01/01/18 Progress note being dictated for Interval history:87-year-old pleasant female with advanced dementia appears to have dementia of Alzheimer's type came in with complaints of confusion. Caregiver is at bedside daughter is not present at this point of time patient has fever and leukocytosis with abnormal urine probably urinary tract infection patient although denies any complaints of chest pain cough she she wanted to do his wanted to go home patient is alert oriented 1-2 itches her baseline her confusion appears to have improved.. Patient had Staphylococcus in the urine in the past as well as E. coli in the past. Patient is presently doesn't have any fevers chills. No nausea no vomiting. 01/01/2018 sitting up in chair, smiling. Good diet intake, no nausea, no vomiting. Denies abdominal pain. Caregiver at bedside. Maintained on IV antibiotics. Afebrile. Normal WBC. Urine culture no growth, preliminary blood cultures no growth at 24 hours. Significant improvement in LFTs. Denies chest pain, palpitations or shortness of breath. Pleasantly confused. Objective - Vital Signs Vital signs: Vital Signs Temp 97.7 F 01/01/18 06:15 Pulse 79 01/01/18 06:15 Resp 20 01/01/18 08:37 BP 140/73 01/01/18 06:15 Pulse Ox 97 01/01/18 06:15 Intake & Output 12/31/17 01/01/18 01/01/18 18:59 06:59 18:59 Intake Total 600 250 50 Output Total 1 Balance 600 249 50 Weight 73.482 kg Intake: Oral 600 250 50 Output: Urine/Stool Mix 1 Other: Voiding Method Diaper Diaper Diaper # Voids 1 2 # Bowel Movements 1 0 0 - Exam GENERAL: The patient is sitting up in chair, alert and oriented x1, not in any acute distress. Well developed, well nourished. Pleasantly confused. HEENT: Pupils are round and equally reacting to light. EOMI. No scleral icterus. No conjunctival pallor. Normocephalic, atraumatic. CARDIOVASCULAR: S1 and S2 present. No murmurs, rubs, or gallops. PULMONARY: Chest is clear to auscultation, no wheezing or crackles. ABDOMEN: Soft, nontender, nondistended, normoactive bowel sounds. No palpable organomegaly. EXTREMITIES: No cyanosis, clubbing, or pedal edema. NEUROLOGICAL: Gross neurological examination did not reveal any new focal deficits. Limited exam due to her benjy - Labs CBC & Chem 7: 01/01/18 08:04 01/01/18 08:04 Labs: Abnormal Lab Results - Last 24 Hours (Table) 01/01/18 Range/Units 08:04 Glucose 125 H (74-99) mg/dL ALT 71 H (9-52) U/L Albumin 3.4 L (3.5-5.0) g/dL Microbiology - Last 24 Hours (Table) 12/30/17 18:08 Urine Culture - Final Urine,Catheterized 12/30/17 17:46 Blood Culture - Preliminary Blood No Growth after 24 hours Assessment and Plan Assessment: Sepsis, lactic acidosis: Secondary to urinary tract infection -Elevated liver enzymes probably cause secondary to sepsis: improved -Advanced dementia: Probably secondary to Alzheimer's avoid opiates benzodiazepines barbiturates and anticholinergic medications. -CVA TIA in the past next and hyperlipidemia -Hypertension Plan: Continue on current medication regime ,monitoring and symptomatic treatment. Maintain IV antibiotics. Caregiver at bedside, updated on plan of care including discharge planning for tomorrow. CODE STATUS needs to be addressed with daughter who is the legal guardian; she is expected to visit this afternoon. The impression and plan of care has been dictated as directed. : I performed a history and examination of this patient, discussed the same with the dictator. I agree with the dictator's note ,documented as a scribe. Any additional findings or plans will be noted.
[2018-01-01] MEDS ORDERED: POTASSIUM CHLORIDE 10 MEQ in WATER FOR INJECTION 1 100ML.BAG IVPB STA (14:43)
[2018-01-01] MEDS: RIVAROXABAN 15 MG TAB PO SCH (16:47)
[2018-01-01] MEDS: MULTIVITAMINS, THERA 1 EACH TAB PO SCH (20:58)
[2018-01-01] MEDS: MELATONIN 5 MG TABLET PO SCH (20:58)
[2018-01-01] MEDS ORDERED: QUEtiapine 25 MG TAB PO PRN (21:00)
[2018-01-01] MEDS ORDERED: QUEtiapine 25 MG TAB PO SCH (21:00)
[2018-01-02 01:10] VITALS: RESP 20; TEMP 98.9
[2018-01-02 06:39] VITALS: BP 130/69; PULSE 80
[2018-01-02] MEDS ORDERED: Magnesium Replacement Protocol 1 EACH MISC MISCELLANE PRN (09:28)
[2018-01-02] MEDS: DONEPEZIL 10 MG TAB PO SCH (09:55)
[2018-01-02] MEDS: cefTRIAXone IN SWFI 2,000 MG/20 ML SYRINGE IVP SCH (09:55)
[2018-01-02] MEDS: PRAVASTATIN SODIUM 20 MG TAB PO SCH (09:56)
[2018-01-02] MEDS: MEMANTINE 5 MG TAB PO SCH (09:56)
[2018-01-02] MEDS ORDERED: FLUCONAZOLE IN NACL,ISO-OSM 100 MG in SALINE 1 50ML.BAG IVPB STA (12:51)
[2018-01-02] MEDS ORDERED: FLUCONAZOLE 150 MG TAB PO STA (13:08)
--- NOTE | 2018-01-02 13:22 | P.DS ---
Providers Date of admission: 12/30/17 19:49 Expected date of discharge: 01/02/18 Attending physician: Giacomo Cantrell Consults: Final DIagnoses: Sepsis, lactic acidosis: possibly viral, low possibility of UTI, culture negative -Elevated liver enzymes probably cause secondary to sepsis: improved -Advanced dementia: Probably secondary to Alzheimer's -CVA TIA in the past next and hyperlipidemia -Hypertension Hospital [facility]:Interval history:87-year-old pleasant female with advanced dementia appears to have dementia of Alzheimer's type came in with complaints of confusion. Caregiver is at bedside daughter is not present at this point of time patient has fever and leukocytosis with abnormal urine probably urinary tract infection patient although denies any complaints of chest pain cough she she wanted to do his wanted to go home patient is alert oriented 1-2 itches her baseline her confusion appears to have improved.. Patient had Staphylococcus in the urine in the past as well as E. coli in the past. Patient is presently doesn't have any fevers chills. No nausea no vomiting. 01/01/2018 sitting up in chair, smiling. Good diet intake, no nausea, no vomiting. Denies abdominal pain. Caregiver at bedside. Maintained on IV antibiotics. Afebrile. Normal WBC. Urine culture no growth, preliminary blood cultures no growth at 24 hours. Significant improvement in LFTs. Denies chest pain, palpitations or shortness of breath. Pleasantly confused. 01/02/18 Primary care physician: Malik Ford [facility] Course: Final Diagnoses: Sepsis, lactic acidosis, possible viral induced, possibly related to but low suspicion of urinary tract infection , culture negative. -Elevated liver enzymes probably cause secondary to sepsis: improved -Advanced dementia: Probably secondary to Alzheimer's -CVA TIA in the past next and hyperlipidemia -Hypertension Hospital course:87-year-old pleasant female with advanced dementia appears to have dementia of Alzheimer's type came in with complaints of confusion. Caregiver is at bedside daughter is not present at this point of time patient has fever and leukocytosis with abnormal urine probably urinary tract infection patient although denies any complaints of chest pain cough she she wanted to do his wanted to go home patient is alert oriented 1-2 itches her baseline her confusion appears to have improved.. Patient had Staphylococcus in the urine in the past as well as E. coli in the past. Patient is presently doesn't have any fevers chills. No nausea no vomiting. 01/01/2018 sitting up in chair, smiling. Good diet intake, no nausea, no vomiting. Denies abdominal pain. Caregiver at bedside. Maintained on IV antibiotics. Afebrile. Normal WBC. Urine culture no growth, preliminary blood cultures no growth at 24 hours. Significant improvement in LFTs. Denies chest pain, palpitations or shortness of breath. Pleasantly confused. 01/02/2018 maintained on IV antibiotics. Significant clinical improvement. Afebrile, normal WBC, urine culture negative, preliminary blood cultures negative at 48 hours. Good diet intake, no nausea, vomiting or diarrhea. Patient is being discharged home with daughter in a stable condition with guarded prognosis. Exam GENERAL: The patient is sitting up in chair, alert and oriented x2, not in any acute distress. Well developed, well nourished. CARDIOVASCULAR: S1 and S2 present. No murmurs, rubs, or gallops. PULMONARY: Chest is clear to auscultation, no wheezing or crackles. ABDOMEN: Soft, nontender, nondistended, normoactive bowel sounds. No palpable organomegaly. NEUROLOGICAL: Gross neurological examination did not reveal any new focal deficits. Limited exam due to her dementia The impression and plan of care has been dictated as directed. : I performed a history and examination of this patient, discussed the same with the dictator. I agree with the dictator's note ,documented as a scribe. Any additional findings or plans will be noted. Time taken: 35 minutes Patient Condition at Discharge: Stable Plan - Discharge Summary Discharge Rx Participant: Yes New Discharge Prescriptions: New Acetaminophen Tab [Tylenol] 500 mg PO Q6HR PRN tab PRN Reason: Fever And/ Or Pain Cefuroxime Axetil [Ceftin] 500 mg PO BID 3 Days #6 tab Fluconazole [Diflucan] 100 mg PO DAILY #5 tab Continue Multivitamin/Iron/Folic Acid [Centrum Complete Multivit Tab] 1 tab PO HS Garlic 1 tab PO DAILY Glucosamine-Chondr 500-400Mg 1 tab PO DAILY Pravastatin Sodium [Pravachol] 10 mg PO DAILY Memantine [Namenda] 5 mg PO BID Donepezil HCl [Aricept] 10 mg PO BID amLODIPine [Norvasc] 10 mg PO DAILY Melatonin 10 mg PO HS Rivaroxaban [Xarelto] 15 mg PO W/SUPPER #30 tab Discontinued Nitrofurantoin Monohyd/M-Cryst [Macrobid] 100 mg PO Q12HR Discharge Medication List Garlic 1 tab PO DAILY 01/14/14 [History] Glucosamine-Chondr 500-400Mg 1 tab PO DAILY 01/14/14 [History] Multivitamin/Iron/Folic Acid [Centrum Complete Multivit Tab] 1 tab PO HS [History] Donepezil HCl [Aricept] 10 mg PO BID 07/21/15 [History] Memantine [Namenda] 5 mg PO BID 07/21/15 [History] Pravastatin Sodium [Pravachol] 10 mg PO DAILY 07/21/15 [History] Melatonin 10 mg PO HS 04/10/17 [History] amLODIPine [Norvasc] 10 mg PO DAILY 04/10/17 [History] Rivaroxaban [Xarelto] 15 mg PO W/SUPPER #30 tab 11/26/17 [Rx] Acetaminophen Tab [Tylenol] 500 mg PO Q6HR PRN tab 01/02/18 [Rx] Cefuroxime Axetil [Ceftin] 500 mg PO BID 3 Days #6 tab 01/02/18 [Rx] Fluconazole [Diflucan] 100 mg PO DAILY #5 tab 01/02/18 [Rx] Follow up Appointment(s)/Referral(s): Liliana Gan MD [Primary Care Provider] - 3 Days [facility] Visiting Nurse, [NON-STAFF] - 3 Days Activity/Diet/Wound Care/Special Instructions: 24/7care at home.
== END 2018-01-02 14:27 | disposition home health service (06) | DRG 872 ==
LOC: EC 16:49 → 4MS4W 19:49
PROVIDERS: ADMIT Hospitalist; ATTEND Hospitalist
DX: A41.89 Other specified sepsis (principal); E87.2 Acidosis; L97.419 Non-pressure chronic ulcer of right heel and midfoot with unspecified severity; N39.0 Urinary tract infection, site not specified; I48.2 Chronic atrial fibrillation; G30.9 Alzheimer's disease, unspecified; F02.80 Dementia in other diseases classified elsewhere, unspecified severity, without behavioral disturbance, psychotic disturbance, mood disturbance, and anxiety; I44.7 Left bundle-branch block, unspecified; K21.9 Gastro-esophageal reflux disease without esophagitis; E78.5 Hyperlipidemia, unspecified; I10 Essential (primary) hypertension; M19.91 Primary osteoarthritis, unspecified site; M81.0 Age-related osteoporosis without current pathological fracture; Z79.01 Long term (current) use of anticoagulants; Z79.899 Other long term (current) drug therapy; Z86.73 Personal history of transient ischemic attack (TIA), and cerebral infarction without residual deficits; Z90.710 Acquired absence of both cervix and uterus; Z90.49 Acquired absence of other specified parts of digestive tract; Z98.42 Cataract extraction status, left eye; Z91.81 History of falling; Z85.828 Personal history of other malignant neoplasm of skin; Z96.642 Presence of left artificial hip joint; Z87.440 Personal history of urinary (tract) infections; Z87.01 Personal history of pneumonia (recurrent); Z87.81 Personal history of (healed) traumatic fracture; Z98.41 Cataract extraction status, right eye; Z88.2 Allergy status to sulfonamides; Z80.0 Family history of malignant neoplasm of digestive organs; Z80.3 Family history of malignant neoplasm of breast
CPT/HCPCS: 36415; 71046; 80053; 81001; 83605; 83735; 84484; 85025; 85027; 85610; 85730; 87040; 87086; 93005; 96374; 99291

== ENCOUNTER 2018-05-16 11:37 | Emergency (ER) | payer MEDICARE, BC ==
[2018-05-16 11:53] VITALS: RESP 18
--- NOTE | 2018-05-16 12:30 | ED ---
General Adult HPI <Benja Branch - Last Filed: 05/16/18 14:06> - General Source: EMS, RN notes reviewed Mode of arrival: EMS Limitations: physical limitation <Cade Deluca - Last Filed: 05/17/18 07:01> - General Chief complaint: Fall Stated complaint: Fall Time Seen by Provider: 05/16/18 11:42 - History of Present Illness Initial comments: Patient 87-year-old female presenting to the emergency room today by EMS, with chief complaint of a fall that occurred yesterday. Patient does have history of Alzheimer's. History provided by daughter who is at bedside. Daughter does admit that she lives at home with her. Does have a field specialist who is watching her yesterday. Did have a witnessed fall when she fell backwards landing on her butt and then hit the back of her head. Daughter does admit that she is on several toe. States that she did wash her yesterday after the fall was not having any difficulties was up ambulating. States that this morning had a difficult time getting out of bed because of pain. She states that she was complaining some pain in the right posterior rib area. She has been able to bear weight and ambulate. Patient states that she is baseline otherwise. Patient denies any shortness of breath, chest pain, abdominal pain, headache. ( Cade Deluca) - Related Data Home Medications Medication Instructions Recorded Confirmed Garlic 1 tab PO DAILY 01/14/14 12/30/17 Glucosamine-Chondr 500-400Mg 1 tab PO DAILY 01/14/14 12/30/17 Multivitamin/Iron/Folic Acid 1 tab PO HS 01/14/14 12/30/17 [Centrum Complete Multivit Tab] Donepezil HCl [Aricept] 10 mg PO BID 07/21/15 12/30/17 Memantine [Namenda] 5 mg PO BID 07/21/15 12/30/17 Pravastatin Sodium [Pravachol] 10 mg PO DAILY 07/21/15 12/30/17 Melatonin 10 mg PO HS 04/10/17 12/30/17 amLODIPine [Norvasc] 10 mg PO DAILY 04/10/17 12/30/17 Previous Rx's Medication Instructions Recorded Rivaroxaban [Xarelto] 15 mg PO W/SUPPER #30 tab 11/26/17 Acetaminophen Tab [Tylenol] 500 mg PO Q6HR PRN tab 01/02/18 Cefuroxime Axetil [Ceftin] 500 mg PO BID 3 Days #6 tab 01/02/18 Fluconazole [Diflucan] 100 mg PO DAILY #5 tab 01/02/18 Allergies Allergy/AdvReac Type Severity Reaction Status Date / Time Sulfa (Sulfonamide Allergy Unknown Verified 12/30/17 17:17 Antibiotics) Review of Systems ROS Other: All systems not noted in ROS Statement are negative. <Benja Branch - Last Filed: 05/16/18 14:06> ROS Other: All systems not noted in ROS Statement are negative. <Cade Deluca - Last Filed: 05/17/18 07:01> ROS Statement: Those systems with pertinent positive or pertinent negative responses have been documented in the HPI. Past Medical History Past Medical History: Atrial Fibrillation, CVA/TIA, Dementia, Hyperlipidemia, Hypertension, Osteoarthritis (OA), Pneumonia Additional Past Medical History / Comment(s): CVA's and TIA's, tracheobronchitis, RLL NODULE, DJD, osteoporosis,uti's , hemorrhoids, hx of falls past pelvic.lt hip fx R heel ulcer-goes to [facility] every other week on fridays History of Any Multi-Drug Resistant Organisms: None Reported Past Surgical History: Appendectomy, Cholecystectomy, Hysterectomy, Joint Replacement Additional Past Surgical History / Comment(s): Bilateral EYE CATARACT SX, bladder suspension, colonoscopy, skin cancer removals. left hip replacement Past Anesthesia/Blood Transfusion Reactions: No Reported Reaction Past Psychological History: No Psychological Hx Reported Smoking Status: Never smoker Past Alcohol Use History: None Reported Past Drug Use History: None Reported - Past Family History Sister(s) Family Medical History: Cancer Additional Family Medical History / Comment(s): colon CA Father Family Medical History: Unable to Obtain Additional Family Medical History / Comment(s): AT AGE 70 HX UNK Mother Family Medical History: Cancer Additional Family Medical History / Comment(s): AGE 55 BREAST CA <Cade Deluca - Last Filed: 05/17/18 07:01> General Exam <Benja Branch - Last Filed: 05/16/18 14:06> Limitations: physical limitation <Cade Deluca - Last Filed: 05/17/18 07:01> - General Exam Comments Initial Comments: General: The patient is awake and alert, in no distress, and does not appear acutely ill. Eye: Pupils are equal, round and reactive to light, extra-ocular movements are intact. No nystagmus. There is normal conjunctiva bilaterally. No signs of icterus. Ears, nose, mouth and throat: There are moist mucous membranes and no oral lesions. Neck: The neck is supple, there is no tenderness or JVD. Cardiovascular: There is a regular rate and rhythm. No murmur, rub or gallop is appreciated. Respiratory: Lungs are clear to auscultation, respirations are non-labored, breath sounds are equal. No wheezes, stridor, rales, or rhonchi. Gastrointestinal: Abdomen soft nontender. Musculoskeletal: Normal ROM, no tenderness. Strength 5/5. Sensation intact. Radial/pedal pulses equal bilaterally 2+. Neurological: There are no obvious motor or sensory deficits. Coordination appears grossly intact. Speech is normal. Skin: Skin is warm and dry and no rashes or lesions are noted. (Cade Deluca) Course <Benja Branch - Last Filed: 05/16/18 14:06> <Cade Deluca - Last Filed: 05/17/18 07:01> Vital Signs 05/16/18 05/16/18 11:47 14:43 Temperature 97.1 F L 97 F L Pulse Rate 79 67 Respiratory 18 18 Rate Blood Pressure 119/74 120/72 O2 Sat by Pulse 94 L 93 L Oximetry - Reevaluation(s) Reevaluation #1: 05/16/18 14:06 Patient condition: Patient was evaluated by me with a [id number] examination. Patient did demonstrate some right rib pain after a fall yesterday. I did review the imaging as well as reports no acute findings no definite fractures are seen. I did discuss this with the patient's daughter. Patient will be discharged at this time with follow-up as appropriate. I do agree with the initial assessment and plan. (Benja Branch) Medical Decision Making <Benja Branch - Last Filed: 05/16/18 14:06> <Cade Deluca - Last Filed: 05/17/18 07:01> - Medical Decision Making Patient reexamined at this time shows no signs of distress. Patient's CT the head and neck negative for any acute abnormality. X-ray of the ribs and chest is negative for anything acute. X-ray of the hips and pelvis as showing no acute fracture or dislocations. Patient's x-ray of the lumbar spine does show degenerative changes and possible indeterminate age fractures. Patient has no tenderness midline. This time shows an comfortably. Will be discharged home. Case discussed and seen by attending physician Dr. Branch. (Cade Deluca) Disposition <Benja Branch - Last Filed: 05/16/18 14:06> Is patient prescribed a controlled substance at d/c from ED?: No Time of Disposition: 14:04 <Cade Deluca - Last Filed: 05/17/18 07:01> Clinical Impression: Fall Disposition: HOME SELF-CARE Condition: Good Instructions: Fall Prevention (ED) Additional Instructions: Please follow-up with family doctor in the next 2 days of symptoms have not improved. Please return to emergency room if the symptoms increase or worsen or for any other concerns. Referrals: Liliana Gan MD [Primary Care Provider] - 1-2 days
--- NOTE | 2018-05-16 13:22 | CT ---
EXAMINATION TYPE: CT brain kailey da silva DATE OF EXAM: 05/16/2018 COMPARISON: Previous CT scan of the brain dated 11/25/2017. HISTORY: Fall today. Neck and head pain CT DLP: 1448.4 mGycm Automated exposure control for dose reduction was used. TECHNIQUE: CT scan of the head and cervical spine are performed without contrast. FINDINGS: BRAIN: There has been a previous left frontal infarct. There are generalized changes of sulcal prominence and ventriculomegaly, compatible with atrophic stanislaw nge. There is moderate periventricular white matter lucency, compatible small vessel ischemic change. There is some physiologic calcification of the basal ganglia. No acute focal lesion, mass effect or midline shift is seen. I do not see evidence of intracranial blood. Visualized portions of the paranasal sinuses and mastoids are clear. The bony calvarium is intact. IMPRESSION: 1. NO ACUTE INTRACRANIAL ABNORMALITY. 2. ATROPHIC CHANGE. 3. OLD LEFT FRONTAL INFARCT. 4. CHRONIC WHITE MATTER ISCHEMIC CHANGE. CERVICAL SPINE: There are emphysematous changes within the lungs. Prevertebral soft tissues are normal. Vertebral body height and alignment are maintained. Atlantoaxial relationships are normal. There is degenerative disc disease and hypertrophic spondylosis most marked at C5-6 and C6-7. There i s uncovertebral joint disease present at these levels. There is facet arthropathy at C2-3, greater on the right than the left and also at C3-4, greater on the left than the right and C4-5 bilaterally. T here is facet arthropathy on the right at C5-6 there is intervertebral foraminal narrowing on the lef t at C3-4 and bilaterally at C4-5. There is a vertebral foraminal narrowing on the right at C5-6 and on the left at C6-7. No fracture is seen. No definite protrusion is seen. IMPRESSION: 1. NO ACUTE OSSEOUS LESION. 2. MODERATE DEGENERATIVE CHANGE. 3. MULTILEVEL INTERVERTEBRAL FORAMINAL NARROWING. 4. EMPHYSEMATOUS CHANGE.
--- NOTE | 2018-05-16 13:34 | XR ---
EXAMINATION TYPE: XR ribs RT w pa chest x-ray , 5 VIEWS DATE OF EXAM ORDERED: 05/16/2018 HISTORY: Pain. COMPARISON: Previous study dated 12/30/2017. FINDINGS: The study is moderately rotated. The heart is enlarged. The lungs appear clear. Pleural spaces are clear. I do not see evidence of pne umothorax. No displaced rib fracture is seen. IMPRESSION: NO ACUTE INTRATHORACIC ABNORMALITY OR DISPLACED RIGHT-SIDED RIB FRACTURE.
--- NOTE | 2018-05-16 13:36 | XR ---
EXAMINATION TYPE: XR lumbar spine 2 or 3V , 3 VIEWS DATE OF EXAM ORDERED: 05/16/2018 HISTORY: Pain. COMPARISON: None. FINDINGS: There is a small, amorphous calcification overlying the expected location of the upper lexa e of the right kidney. There are cartilage deformities at virtually every vertebral body. The age of these is not determined . Alignment is maintained. The pedicles are maintained. There is diffuse degenerative disc disease wi th vacuum phenomena present at L4-5. There is spondylosis deformans throughout the lumbar spine. IMPRESSION: 1. CONSCIOUS DEFORMITIES OF VIRTUALLY ALL LUMBAR LEVELS. THE AGE OF THESE ARE NOT DETERMINED. 2. MODERATE DEGENERATIVE CHANGES.
--- NOTE | 2018-05-16 13:38 | XR ---
EXAMINATION TYPE: XR Hip RT and AP Pelvis , 3 VIEWS DATE OF EXAM ORDERED: 05/16/2018 HISTORY: Pain. COMPARISON: None. FINDINGS: There is a left hip hemiarthroplasty in place. There are severe degenerative changes in th e right hip. No fracture or dislocation is seen. There are remodeling changes. Note is made of a vacu um phenomena present at the L4-5 level in the lumbar spine. IMPRESSION: 1. NO ACUTE OSSEOUS LESION. 2. DEGENERATIVE CHANGE IN THE LOWER LUMBAR SPINE AND RIGHT HIP. 3. POSTSURGICAL CHANGE IN THE LEFT HIP.
[2018-05-16 14:44] VITALS: BP 120/72; PULSE 67; TEMP 97
== END 2018-05-16 14:44 | disposition home or self-care (01) ==
LOC: EC 11:37
DX: R07.81 Pleurodynia (principal); M47.816 Spondylosis without myelopathy or radiculopathy, lumbar region; R29.6 Repeated falls; E78.5 Hyperlipidemia, unspecified; I10 Essential (primary) hypertension; I48.91 Unspecified atrial fibrillation; G30.9 Alzheimer's disease, unspecified; F02.80 Dementia in other diseases classified elsewhere, unspecified severity, without behavioral disturbance, psychotic disturbance, mood disturbance, and anxiety; M19.90 Unspecified osteoarthritis, unspecified site; L97.419 Non-pressure chronic ulcer of right heel and midfoot with unspecified severity; Z88.2 Allergy status to sulfonamides; Z79.01 Long term (current) use of anticoagulants; Z79.899 Other long term (current) drug therapy; Z86.73 Personal history of transient ischemic attack (TIA), and cerebral infarction without residual deficits; Z96.642 Presence of left artificial hip joint; Z85.828 Personal history of other malignant neoplasm of skin; Z98.890 Other specified postprocedural states; W01.0XXA Fall on same level from slipping, tripping and stumbling without subsequent striking against object, initial encounter; Y92.009 Unspecified place in unspecified non-institutional (private) residence as the place of occurrence of the external cause
CPT/HCPCS: 70450; 72100; 72125; 73502; 99284

== ENCOUNTER 2018-05-18 12:01 | Emergency (ER) | payer MEDICARE, BC ==
[2018-05-18 12:25] VITALS: PULSE 67; RESP 18
[2018-05-18] MEDS ORDERED: HYDROmorphone 1 MG/ML 1 ML SYRINGE IM STA (12:49)
--- NOTE | 2018-05-18 13:51 | CT ---
EXAMINATION TYPE: CT abdomen pelvis wo con DATE OF EXAM: 05/18/2018 COMPARISON: Correlation CT lumbar spine and left hip 07/21/2015 HISTORY: 87-year-old female Pain from fall CT DLP: 732.4 mGycm. Automated exposure control for dose reduction was used. TECHNIQUE: Contiguous axial scanning of the abdomen and pelvis without IV contrast. Coronal and sagit debra reconstructions performed. FINDINGS: Heart upper limits of normal in size without pericardial effusion. Coronary vessel calcifications are present. Strandy scarring/atelectasis in the visualized lower lungs. No pleural effusion. Small hiatal hernia. Prominence to the bile duct probably age related change. This can be correlated with alkaline phospha tase and bilirubin levels if indicated. Limited assessment of the solid abdominal viscera, lymph node s, and vascular structures due to lack of IV contrast. Gallbladder surgically absent. Adrenal glands, spleen, and atrophic pancreas show no gross abnormality. A couple punctate nonobstructive 2 mm right renal calculi. Approximately 2 nonobstructive left renal calculi measuring up to 4 mm. No dilated small bowel, free fluid, or free air. No mesenteric or retroperitoneal lymphadenopathy. Extensive sigmoid diverticulosis with tortuous distal sigmoid and prominent stool in the rectum diste nding it up to 6.5 cm wide. There may be some mild focal pericolonic fat stranding along the mid to d istal sigmoid, referred to coronal images 61 through 67. Bladder urine distended. Uterus not clearly identified, possibly surgically absent. What appears to b e the left ovary is seen. Pelvic phleboliths. No abnormal fluid collection in the pelvis. Bones: Marked osteopenia. Left hip total arthroplasty causing prominent metal hardware artifacts and limiting assessment of the pelvis. Proximal cerclage wire is also present. Moderate to severe degener ative change of the right hip. There is asymmetric irregularity of the left pubic body, for example, axial images 82 and 83. Advanced degenerative changes throughout the lumbar spine with multiple endplate compression fracture s and endplate deformities all of these are stable in appearance as compared to 07/21/2015. IMPRESSION: 1. Multiple endplate compression deformities throughout the lumbar spine are overall stable from 07/03 suggesting chronic compression injuries. No progressive vertebral body height loss or definite acute vertebral fracture seen. 2. There is marked osteopenia limiting assessment of the bony structures. However, there is irregula rity involving the left pubic body. Correlate for any pinpoint tenderness here to exclude nondisplace d left-sided pubic body fracture (axial images 82 and 83). 3. Sigmoid diverticulosis. Either prominent pericolonic vessels or mild acute diverticulitis along t he distal sigmoid. No abscess or free air. Clinical correlate. 4. Nonobstructive bilateral nephrolithiasis measuring up to 4 mm. 5. Prominence to the bile duct likely secondary to postcholecystectomy status and age-related change . This can be confirmed with alkaline phosphatase and bilirubin levels if indicated. 6. Small hiatal hernia.
--- NOTE | 2018-05-18 14:10 | ED ---
Fall HPI - General Chief Complaint: Fall Stated Complaint: Fall Time Seen by Provider: 05/18/18 12:30 Source: patient Mode of arrival: ambulatory Limitations: altered mental status, physical limitation - History of Present Illness Initial Comments: This is a 87-year-old female the ER for evaluation. Patient does suffer from advanced dementia. Patient's brought in by family for decreased mobility increased pain leg pain back pain. Family and caregiver states patient's activity level is been decreased ever since her fall. She is complaining of back pain and leg. Mainly when she is being moved. 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 Complaint: fall -: days(s) (3) Fall From: from height (distance) When Fall Occurred: # days [employer] Fall Witnessed: yes, by family Place Fall Occurred: home Loss of Consciousness: none Prolonged Down Time?: no Symptoms Prior to Fall: none Location: pelvis, buttocks Severity: moderate Severity scale (1-10): 5 Quality: dull, aching Context: tripped/slipped Associated Symptoms: denies - Related Data Home Medications Medication Instructions Recorded Confirmed Garlic 1 tab PO W/LUNCH 01/14/14 05/18/18 Glucosamine-Chondr 500-400Mg 1 tab PO W/BRKFST 01/14/14 05/18/18 Multivitamin/Iron/Folic Acid 1 tab PO W/SUPPER 01/14/14 05/18/18 [Centrum Complete Multivit Tab] Donepezil HCl [Aricept] 10 mg PO BID@0700,1200 07/21/15 05/18/18 Memantine [Namenda] 5 mg PO BID@0700,1200 07/21/15 05/18/18 Pravastatin Sodium [Pravachol] 10 mg PO W/LUNCH 07/21/15 05/18/18 Melatonin 10 mg PO W/SUPPER 04/10/17 05/18/18 amLODIPine [Norvasc] 10 mg PO W/BRKFST 04/10/17 05/18/18 Acetaminophen [Tylenol Arthritis] 650 mg PO TID-W/MEALS 05/18/18 05/18/18 Cranberry Fruit Extract [Cranberry] 500 mg PO BID-W/MEALS 05/18/18 05/18/18 Previous Rx's Medication Instructions Recorded Rivaroxaban [Xarelto] 15 mg PO W/SUPPER #30 tab 07/25/18 Allergies Allergy/AdvReac Type Severity Reaction Status Date / Time Sulfa (Sulfonamide Allergy Unknown Verified 05/18/18 13:06 Antibiotics) Review of Systems ROS Statement: Those systems with pertinent positive or pertinent negative responses have been documented in the HPI. ROS Other: All systems not noted in ROS Statement are negative. Past Medical History Past Medical History: Atrial Fibrillation, CVA/TIA, Dementia, Hyperlipidemia, Hypertension, Osteoarthritis (OA), Pneumonia Additional Past Medical History / Comment(s): CVA's and TIA's, tracheobronchitis, RLL NODULE, DJD, osteoporosis,uti's , hemorrhoids, hx of falls past pelvic.lt hip fx R heel ulcer-goes to [facility] every other week on fridays History of Any Multi-Drug Resistant Organisms: None Reported Past Surgical History: Appendectomy, Cholecystectomy, Hysterectomy, Joint Replacement Additional Past Surgical History / Comment(s): Bilateral EYE CATARACT SX, bladder suspension, colonoscopy, skin cancer removals. left hip replacement Past Anesthesia/Blood Transfusion Reactions: No Reported Reaction Past Psychological History: No Psychological Hx Reported Smoking Status: Never smoker Past Alcohol Use History: None Reported Past Drug Use History: None Reported - Past Family History Sister(s) Family Medical History: Cancer Additional Family Medical History / Comment(s): colon CA Father Family Medical History: Unable to Obtain Additional Family Medical History / Comment(s): AT AGE 70 HX UNK Mother Family Medical History: Cancer Additional Family Medical History / Comment(s): AGE 55 BREAST CA General Exam Limitations: altered mental status, physical limitation General appearance: alert, in no apparent distress Head exam: Present: atraumatic, normocephalic, normal inspection Eye exam: Present: normal appearance, PERRL, EOMI. Absent: scleral icterus, conjunctival injection, periorbital swelling ENT exam: Present: normal exam, mucous membranes moist Neck exam: Present: normal inspection. Absent: tenderness, meningismus, lymphadenopathy Respiratory exam: Present: normal lung sounds bilaterally. Absent: respiratory distress, wheezes, rales, rhonchi, stridor Cardiovascular Exam: Present: regular rate, normal rhythm, normal heart sounds. Absent: systolic murmur, diastolic murmur, rubs, gallop, clicks GI/Abdominal exam: Present: soft, normal bowel sounds. Absent: distended, tenderness, guarding, rebound, rigid Extremities exam: Present: normal inspection, full ROM, normal capillary refill. Absent: tenderness, pedal edema, joint swelling, calf tenderness Back exam: Present: normal inspection Neurological exam: Present: alert, oriented X3, CN II-XII intact Psychiatric exam: Present: normal affect, normal mood Skin exam: Present: warm, dry, intact, normal color. Absent: rash Course Vital Signs 05/18/18 05/18/18 12:22 15:20 Temperature 97.9 F 98 F Pulse Rate 67 67 Respiratory 18 18 Rate Blood Pressure 133/71 128/78 O2 Sat by Pulse 93 L 98 Oximetry - Reevaluation(s) Reevaluation #1: 05/18/18 14:06 Medical record is reviewed Reevaluation #2: 05/18/18 14:06 Patient is ER visit from 3 days ago is reviewed including imaging Reevaluation #3: 05/18/18 14:07 Patient's pain is improved Medical Decision Making - Medical Decision Making 87 female the ER status post fall, no injury is noted. Patient can be discharged home - Radiology Data Radiology results: report reviewed (CT abdomen pelvis negative for traumatic injury), image reviewed Disposition Clinical Impression: Fall, Back pain Disposition: HOME SELF-CARE Condition: Good Instructions: Fall Prevention for Older Adults (ED), Contusion in Adults (ED) Is patient prescribed a controlled substance at d/c from ED?: No Referrals: Liliana Gan MD [Primary Care Provider] - 1-2 days
[2018-05-18 15:23] VITALS: BP 128/78; TEMP 98
[2018-05-18] MEDS ORDERED: ACET/COD 300 MG/30 MG STARTER PACK 6 TAB BTL PO STA (16:14)
[2018-05-18] MEDS ORDERED: Acetaminophen-Codeine 300-30mg TAB PO STA (16:14)
== END 2018-05-18 16:20 | disposition home or self-care (01) ==
LOC: EC 12:01
DX: M54.9 Dorsalgia, unspecified (principal); F03.90 Unspecified dementia, unspecified severity, without behavioral disturbance, psychotic disturbance, mood disturbance, and anxiety; R29.6 Repeated falls; R10.2 Pelvic and perineal pain; M79.606 Pain in leg, unspecified; E78.5 Hyperlipidemia, unspecified; I10 Essential (primary) hypertension; M19.90 Unspecified osteoarthritis, unspecified site; Z88.2 Allergy status to sulfonamides; Z79.891 Long term (current) use of opiate analgesic; Z79.899 Other long term (current) drug therapy; Z85.828 Personal history of other malignant neoplasm of skin; Z86.73 Personal history of transient ischemic attack (TIA), and cerebral infarction without residual deficits; Z90.49 Acquired absence of other specified parts of digestive tract; Z96.642 Presence of left artificial hip joint; Z98.890 Other specified postprocedural states; W17.89XA Other fall from one level to another, initial encounter; Y92.009 Unspecified place in unspecified non-institutional (private) residence as the place of occurrence of the external cause
CPT/HCPCS: 74176; 99284; 96372; J1170